=== PATIENT | male | born 1940 | race Two or more races ===

== ENCOUNTER 2017-08-19 13:54 | Emergency (ER) | payer OTHER ==
[~2017-08-19] VITALS: Ht 167.6 cm; Wt 84.8 kg
[~2017-08-19 13:54] MED LIST: AMLO5 PO; ATOR20 PO; ATOR40TA PO; Aspirin EC81 MG PO; BENA20 PO; BENHYD1012 PO; Cialis20 MG PO; GLYB5 PO; HYDCHL25 PO; INSULANI SUBQ; INSULANPEN SC; K-Dur20 MEQ PO; LEVSOD25 PO; METF500 PO; METFORMIN HCL1000 MG PO; Multivitamin1 EAC1 PO; Norco 10-325 T1 EACH PO; PIOG45 PO; QUIN5; Synthroid25 MCG PO; [UNRECOGNIZED DRUG - REMARK]
[2017-08-19] MEDS ORDERED: HYDCHL25 PO (14:58)
[2017-08-19] MEDS ORDERED: ATOR20 PO (14:58)
== END 2017-08-19 15:22 | disposition home or self-care (01) ==
LOC: ER 13:54
DX: S63.501A Unspecified sprain of right wrist, initial encounter (principal); I10 Essential (primary) hypertension; I25.10 Atherosclerotic heart disease of native coronary artery without angina pectoris; E03.9 Hypothyroidism, unspecified; Z79.899 Other long term (current) drug therapy; Z79.4 Long term (current) use of insulin; X50.0XXA Overexertion from strenuous movement or load, initial encounter
CPT/HCPCS: 73110

== ENCOUNTER 2017-08-23 14:01 | Emergency (ER) | payer OTHER ==
[~2017-08-23] VITALS: Ht 170.2 cm; Wt 83.9 kg
[2017-08-23] MEDS ORDERED: Norco 5-325 Ta1 EACH PO (15:04)
== END 2017-08-23 15:09 | disposition home or self-care (01) ==
LOC: ER 14:01
DX: S22.32XA Fracture of one rib, left side, initial encounter for closed fracture (principal); W01.198A Fall on same level from slipping, tripping and stumbling with subsequent striking against other object, initial encounter; Z79.899 Other long term (current) drug therapy; Z79.84 Long term (current) use of oral hypoglycemic drugs; Z79.4 Long term (current) use of insulin; I10 Essential (primary) hypertension; E11.9 Type 2 diabetes mellitus without complications
CPT/HCPCS: 71101; 99283

== ENCOUNTER 2018-04-04 01:36 | Day surgery (SDC) | payer OTHER ==
[~2018-04-04 01:36] MED LIST changes: +ASPI81CH PO; +Keflex500 MG PO; +Norco 5-325 Ta1 EACH PO
== END 2018-04-04 22:37 | disposition home or self-care (01) ==
LOC: WOUND 01:36
DX: E11.621 Type 2 diabetes mellitus with foot ulcer (principal); L97.512 Non-pressure chronic ulcer of other part of right foot with fat layer exposed; E11.21 Type 2 diabetes mellitus with diabetic nephropathy; I10 Essential (primary) hypertension
CPT/HCPCS: G0463

== ENCOUNTER 2018-04-18 10:15 | Day surgery (SDC) | payer OTHER | END 2018-04-18 22:35 | disposition home or self-care (01) | LOC: WOUND 10:15 | DX: E11.621 Type 2 diabetes mellitus with foot ulcer (principal); L97.512 Non-pressure chronic ulcer of other part of right foot with fat layer exposed; E11.21 Type 2 diabetes mellitus with diabetic nephropathy; I10 Essential (primary) hypertension ==

== ENCOUNTER 2018-04-26 08:21 | Day surgery (SDC) | payer OTHER | END 2018-04-26 22:35 | disposition home or self-care (01) | LOC: WOUND 08:21 | DX: E11.621 Type 2 diabetes mellitus with foot ulcer (principal); L97.512 Non-pressure chronic ulcer of other part of right foot with fat layer exposed ==

== ENCOUNTER 2018-04-28 14:00 | Day surgery (SDC) | payer OTHER | END 2018-04-28 22:46 | disposition home or self-care (01) | LOC: WOUND 14:00 | DX: E11.621 Type 2 diabetes mellitus with foot ulcer (principal); E11.21 Type 2 diabetes mellitus with diabetic nephropathy; L97.512 Non-pressure chronic ulcer of other part of right foot with fat layer exposed; I10 Essential (primary) hypertension ==

== ENCOUNTER 2018-05-04 00:14 | Day surgery (SDC) | payer OTHER | END 2018-05-04 22:36 | disposition home or self-care (01) | LOC: WOUND 00:14 | DX: E11.621 Type 2 diabetes mellitus with foot ulcer (principal); L97.512 Non-pressure chronic ulcer of other part of right foot with fat layer exposed; E11.21 Type 2 diabetes mellitus with diabetic nephropathy; S80.811D Abrasion, right lower leg, subsequent encounter; I10 Essential (primary) hypertension ==

== ENCOUNTER 2018-05-09 09:53 | Day surgery (SDC) | payer OTHER | END 2018-05-09 22:37 | disposition home or self-care (01) | LOC: WOUND 09:53 | PROC: 0HBMXZZ Excision of Right Foot Skin, External Approach (ICD-10-PCS; principal; 2018-05-09) | DX: E11.621 Type 2 diabetes mellitus with foot ulcer (principal); L97.512 Non-pressure chronic ulcer of other part of right foot with fat layer exposed; E11.21 Type 2 diabetes mellitus with diabetic nephropathy; S80.811A Abrasion, right lower leg, initial encounter ==

== ENCOUNTER 2018-05-16 09:59 | Day surgery (SDC) | payer OTHER | END 2018-05-16 22:46 | disposition home or self-care (01) | LOC: WOUND 09:59 | DX: E11.621 Type 2 diabetes mellitus with foot ulcer (principal); L97.512 Non-pressure chronic ulcer of other part of right foot with fat layer exposed; E11.21 Type 2 diabetes mellitus with diabetic nephropathy; I10 Essential (primary) hypertension; Z79.4 Long term (current) use of insulin ==

== ENCOUNTER 2018-05-23 14:27 | Day surgery (SDC) | payer OTHER | END 2018-05-23 22:41 | disposition home or self-care (01) | LOC: WOUND 14:27 | DX: E11.621 Type 2 diabetes mellitus with foot ulcer (principal); E11.21 Type 2 diabetes mellitus with diabetic nephropathy; I10 Essential (primary) hypertension; L97.512 Non-pressure chronic ulcer of other part of right foot with fat layer exposed | CPT/HCPCS: 87070; 87205; G0463 ==

== ENCOUNTER 2018-05-30 10:45 | Day surgery (SDC) | payer OTHER | END 2018-05-30 22:39 | disposition home or self-care (01) | LOC: WOUND 10:45 | DX: E11.621 Type 2 diabetes mellitus with foot ulcer (principal); L97.419 Non-pressure chronic ulcer of right heel and midfoot with unspecified severity; I10 Essential (primary) hypertension; E11.21 Type 2 diabetes mellitus with diabetic nephropathy; L97.409 Non-pressure chronic ulcer of unspecified heel and midfoot with unspecified severity; M79.671 Pain in right foot | CPT/HCPCS: 73630; 87070; 87075; 87077; 87186; 87205; G0463 ==

== ENCOUNTER 2018-06-06 00:28 | Day surgery (SDC) | payer OTHER | END 2018-06-06 22:58 | disposition home or self-care (01) | LOC: WOUND 00:28 | DX: E11.621 Type 2 diabetes mellitus with foot ulcer (principal); L97.512 Non-pressure chronic ulcer of other part of right foot with fat layer exposed; E11.21 Type 2 diabetes mellitus with diabetic nephropathy; Z79.4 Long term (current) use of insulin | CPT/HCPCS: G0463 ==

== ENCOUNTER 2018-06-16 15:00 | Day surgery (SDC) | payer OTHER | END 2018-06-17 13:11 | disposition home or self-care (01) | LOC: WOUND 15:00 | DX: E11.621 Type 2 diabetes mellitus with foot ulcer (principal); E11.21 Type 2 diabetes mellitus with diabetic nephropathy; L97.512 Non-pressure chronic ulcer of other part of right foot with fat layer exposed; I10 Essential (primary) hypertension; Z79.4 Long term (current) use of insulin; Z79.84 Long term (current) use of oral hypoglycemic drugs ==

== ENCOUNTER 2018-06-27 00:42 | Day surgery (SDC) | payer OTHER | END 2018-06-27 22:50 | disposition home or self-care (01) | LOC: WOUND 00:42 | DX: E11.621 Type 2 diabetes mellitus with foot ulcer (principal); L97.512 Non-pressure chronic ulcer of other part of right foot with fat layer exposed; E11.21 Type 2 diabetes mellitus with diabetic nephropathy; I10 Essential (primary) hypertension; Z79.84 Long term (current) use of oral hypoglycemic drugs ==

== ENCOUNTER 2018-06-30 00:24 | Day surgery (SDC) | payer OTHER | END 2018-06-30 12:00 | disposition home or self-care (01) | LOC: WOUND 00:24 | DX: E11.621 Type 2 diabetes mellitus with foot ulcer (principal); L97.515 Non-pressure chronic ulcer of other part of right foot with muscle involvement without evidence of necrosis; E11.21 Type 2 diabetes mellitus with diabetic nephropathy; E11.40 Type 2 diabetes mellitus with diabetic neuropathy, unspecified; I10 Essential (primary) hypertension ==

== ENCOUNTER 2018-07-07 00:32 | Day surgery (SDC) | payer OTHER | END 2018-07-07 12:00 | disposition home or self-care (01) | LOC: WOUND 00:32 | DX: E11.621 Type 2 diabetes mellitus with foot ulcer (principal); L97.515 Non-pressure chronic ulcer of other part of right foot with muscle involvement without evidence of necrosis; E11.21 Type 2 diabetes mellitus with diabetic nephropathy; E11.40 Type 2 diabetes mellitus with diabetic neuropathy, unspecified; I10 Essential (primary) hypertension | CPT/HCPCS: G0463 ==

== ENCOUNTER 2018-07-18 00:14 | Day surgery (SDC) | payer OTHER | END 2018-07-18 23:04 | disposition home or self-care (01) | LOC: WOUND 00:14 | DX: E11.621 Type 2 diabetes mellitus with foot ulcer (principal); L97.515 Non-pressure chronic ulcer of other part of right foot with muscle involvement without evidence of necrosis; E11.21 Type 2 diabetes mellitus with diabetic nephropathy; E11.40 Type 2 diabetes mellitus with diabetic neuropathy, unspecified; I10 Essential (primary) hypertension ==

== ENCOUNTER 2018-07-21 01:07 | Day surgery (SDC) | payer OTHER | END 2018-07-21 22:46 | disposition home or self-care (01) | LOC: WOUND 01:07 | DX: E11.621 Type 2 diabetes mellitus with foot ulcer (principal); L97.515 Non-pressure chronic ulcer of other part of right foot with muscle involvement without evidence of necrosis; E11.21 Type 2 diabetes mellitus with diabetic nephropathy; E11.40 Type 2 diabetes mellitus with diabetic neuropathy, unspecified; I10 Essential (primary) hypertension ==

== ENCOUNTER 2018-07-26 00:28 | Day surgery (SDC) | payer OTHER | END 2018-07-26 22:47 | disposition home or self-care (01) | LOC: WOUND 00:28 | DX: E11.621 Type 2 diabetes mellitus with foot ulcer (principal); L97.515 Non-pressure chronic ulcer of other part of right foot with muscle involvement without evidence of necrosis; E11.21 Type 2 diabetes mellitus with diabetic nephropathy; I10 Essential (primary) hypertension; E11.40 Type 2 diabetes mellitus with diabetic neuropathy, unspecified; E07.9 Disorder of thyroid, unspecified | CPT/HCPCS: G0463 ==

== ENCOUNTER 2018-08-02 14:35 | Day surgery (SDC) | payer OTHER | END 2018-08-02 22:48 | disposition home or self-care (01) | LOC: WOUND 14:35 | DX: E11.621 Type 2 diabetes mellitus with foot ulcer (principal); L97.512 Non-pressure chronic ulcer of other part of right foot with fat layer exposed; E11.21 Type 2 diabetes mellitus with diabetic nephropathy; I10 Essential (primary) hypertension; E11.40 Type 2 diabetes mellitus with diabetic neuropathy, unspecified | CPT/HCPCS: G0463 ==

== ENCOUNTER 2018-08-09 12:10 | Day surgery (SDC) | payer OTHER | END 2018-08-09 22:38 | disposition home or self-care (01) | LOC: WOUND 12:10 | DX: E11.621 Type 2 diabetes mellitus with foot ulcer (principal); L97.515 Non-pressure chronic ulcer of other part of right foot with muscle involvement without evidence of necrosis; E11.21 Type 2 diabetes mellitus with diabetic nephropathy; E11.40 Type 2 diabetes mellitus with diabetic neuropathy, unspecified; I10 Essential (primary) hypertension | CPT/HCPCS: G0463 ==

== ENCOUNTER 2018-08-23 15:10 | Day surgery (SDC) | payer OTHER | END 2018-08-23 22:58 | disposition home or self-care (01) | LOC: WOUND 15:10 | DX: E11.621 Type 2 diabetes mellitus with foot ulcer (principal); L97.513 Non-pressure chronic ulcer of other part of right foot with necrosis of muscle; I10 Essential (primary) hypertension; E11.21 Type 2 diabetes mellitus with diabetic nephropathy; E11.40 Type 2 diabetes mellitus with diabetic neuropathy, unspecified; M86.9 Osteomyelitis, unspecified | CPT/HCPCS: 73630; 87070; 87075; 87077; 87186; 87205; 99283-25; G0463 ==

== ENCOUNTER 2018-08-25 10:53 | Day surgery (SDC) | payer OTHER ==
[2018-08-26] MEDS ORDERED: LEVO750 PO (21:54)
== END 2018-08-25 22:43 | disposition home or self-care (01) ==
LOC: WOUND 10:53
DX: E11.621 Type 2 diabetes mellitus with foot ulcer (principal); L97.512 Non-pressure chronic ulcer of other part of right foot with fat layer exposed; I10 Essential (primary) hypertension; E11.21 Type 2 diabetes mellitus with diabetic nephropathy; E11.40 Type 2 diabetes mellitus with diabetic neuropathy, unspecified

== ENCOUNTER 2018-08-26 14:15 | Day surgery (SDC) | payer OTHER ==
[2018-08-26] MEDS ORDERED: LEVO750 PO (21:54)
== END 2018-08-27 22:55 | disposition home or self-care (01) ==
LOC: WOUND 14:15
DX: E11.621 Type 2 diabetes mellitus with foot ulcer (principal); L97.513 Non-pressure chronic ulcer of other part of right foot with necrosis of muscle; E11.21 Type 2 diabetes mellitus with diabetic nephropathy; I10 Essential (primary) hypertension; B95.61 Methicillin susceptible Staphylococcus aureus infection as the cause of diseases classified elsewhere; B96.89 Other specified bacterial agents as the cause of diseases classified elsewhere; L02.611 Cutaneous abscess of right foot; E11.69 Type 2 diabetes mellitus with other specified complication; M86.171 Other acute osteomyelitis, right ankle and foot
CPT/HCPCS: J0690; J3010; J7120

== ENCOUNTER 2018-08-26 17:22 | Inpatient (IN) | payer OTHER ==
[~2018-08-26] VITALS: Ht 170.2 cm; Wt 76.7 kg
[2018-08-26 18:01] LABS: BASOPHILS ABSOLUTE AUTO 0.03 K/mm3 (0.00-0.23); BASOPHILS PERCENT AUTO 0 % (0-2); EOSINOPHILS ABSOLUTE AUTO 0.12 K/mm3 (0.00-0.68); EOSINOPHILS PERCENT AUTO 1 % (0-6); Hematocrit 41.4 % (37.0-53.0); Hemoglobin 13.4 g/dL (13.5-17.5); IMMATURE GRAN ABSOLUTE AUTO 0.04 K/mm3 (0.00-0.10); IMMATURE GRAN PERCENT AUTO 0 % (0-1); LYMPHOCYTES ABSOLUTE AUTO 1.87 K/mm3 (0.84-5.20); LYMPHOCYTES PERCENT AUTO 19 % (21-46); MONOCYTES ABSOLUTE AUTO 0.65 K/mm3 (0.16-1.47); MONOCYTES PERCENT AUTO 7 % (4-13); Mean Corpuscular HGB 30.2 pg (26.0-34.0); Mean Corpuscular HGB Conc 32.4 g/dL (31.5-36.5); Mean Corpuscular Volume 93 fL (80-100); Mean Platelet Volume 8.8 fL (9.1-12.4); NEUTROPHILS ABSOLUTE AUTO 6.99 K/mm3 (1.96-9.15); NEUTROPHILS PERCENT AUTO 72 % (41-73); Platelet Count 316 K/mm3 (150-400); RDW Coefficient Variation 11.8 % (11.7-14.2); RDW Standard Deviation 40.5 fL (35.1-46.3); Red Blood Cell Count 4.44 M/mm3 (4.30-5.90)
[2018-08-26 18:27] LABS: Alanine Aminotransfer (ALT/SGP 19 U/L (12-78); Albumin, Blood 3.4 g/dL (3.4-5.0); Albumin/Globulin Ratio 0.7 (0.8-1.8); Alk Phos 56 U/L (50-136); Anion Gap 5 mmol/L (6-16); Aspartate Aminotrans (AST/SGOT 13 U/L (12-37); Bilirubin, Total 0.4 mg/dL (0.1-1.0); Blood Urea Nitrogen 17 mg/dL (8-24); Bun/Creatinine Ratio 19.9 (12.0-20.0); CO2, Blood 29 mmol/L (21-32); Calcium, Blood 9.5 mg/dL (8.5-10.1); Chloride, Blood 102 mmol/L (98-108); Creatinine, Blood 0.86 mg/dL (0.60-1.20); Glomerular Filtration Rate >60 (60-); Glucose, Blood 100 mg/dL (70-99); Potassium, Blood 3.8 mmol/L (3.5-5.5); Sodium, Blood 136 mmol/L (136-145); Total Protein, Blood 8.4 g/dL (6.4-8.2)
[2018-08-26] MEDS ORDERED: LEVO750 PO (21:54)
[2018-08-27 04:03] LABS: Source, Urine Voided
[2018-08-27 04:05] LABS: Bilirubin, Urine Neg (Neg); Blood, Urine Neg (Neg); Glucose Qualitative, Urine Neg (Neg); Ketones, Urine Neg (Neg); Leukocyte Esterase, Urine Neg (Neg); Nitrite, Urine Neg (Neg); Protein, Urine Neg (Neg); Specific Gravity, Urine 1.015 (1.003-1.022); Urobilinogen, Urine NORM (Normal)
[2018-08-27 04:38] LABS: Appearance, Urine Clear (Clear); Color, Urine Yellow (P-Yellow)
--- NOTE | 2018-08-27 04:56 | NUR ---
*SHIFT SUMMARY* PATIENT IS ALERT AND ORIENTED. ARRIVED TO ROOM FROM ER VIA STRETCHER. PT STOOD AND PIVOTED WITH ONE FOOT TO BED. PT USES CALL LIGHT FOR ASSISTANCE TO USE URINAL. PATIENT DENIES HAVING ANY PAIN. PATIENT SLEPT WELL THROUGHOUT THE NIGHT. VITAL SIGNS STABLE.
[2018-08-27 05:37] LABS: BASOPHILS ABSOLUTE AUTO 0.04 K/mm3 (0.00-0.23); BASOPHILS PERCENT AUTO 1 % (0-2); EOSINOPHILS ABSOLUTE AUTO 0.14 K/mm3 (0.00-0.68); EOSINOPHILS PERCENT AUTO 2 % (0-6); Hematocrit 37.6 % (37.0-53.0); Hemoglobin 12.3 g/dL (13.5-17.5); IMMATURE GRAN ABSOLUTE AUTO 0.03 K/mm3 (0.00-0.10); IMMATURE GRAN PERCENT AUTO 0 % (0-1); LYMPHOCYTES ABSOLUTE AUTO 1.45 K/mm3 (0.84-5.20); LYMPHOCYTES PERCENT AUTO 19 % (21-46); MONOCYTES ABSOLUTE AUTO 0.63 K/mm3 (0.16-1.47); MONOCYTES PERCENT AUTO 8 % (4-13); Mean Corpuscular HGB 30.8 pg (26.0-34.0); Mean Corpuscular HGB Conc 32.7 g/dL (31.5-36.5); Mean Corpuscular Volume 94 fL (80-100); Mean Platelet Volume 8.9 fL (9.1-12.4); NEUTROPHILS ABSOLUTE AUTO 5.56 K/mm3 (1.96-9.15); NEUTROPHILS PERCENT AUTO 71 % (41-73); Platelet Count 270 K/mm3 (150-400); RDW Coefficient Variation 11.9 % (11.7-14.2); Red Blood Cell Count 3.99 M/mm3 (4.30-5.90); White Blood Cell Count 7.85 K/mm3 (4.00-11.30)
[2018-08-27 05:53] LABS: International Normalized Ratio 1.03; Prothrombin Time Results 10.9 Sec (9.7-11.5)
[2018-08-27 06:30] LABS: Anion Gap 7 mmol/L (6-16); Blood Urea Nitrogen 20 mg/dL (8-24); Bun/Creatinine Ratio 22.9 (12.0-20.0); CO2, Blood 27 mmol/L (21-32); Calcium, Blood 9.3 mg/dL (8.5-10.1); Chloride, Blood 106 mmol/L (98-108); Creatinine, Blood 0.87 mg/dL (0.60-1.20); Glomerular Filtration Rate >60 (60-); Glucose, Blood 120 mg/dL (70-99); Potassium, Blood 3.7 mmol/L (3.5-5.5); Sodium, Blood 140 mmol/L (136-145)
--- NOTE | 2018-08-27 15:38 | NUR ---
PT GOING TO SURGERY NOW
--- NOTE | 2018-08-27 17:23 | NUR ---
SHIFT SUMMARY PT IS AWAITING SURGERY THIS MORNING. PT HAS BEEN NPO. PT SHOWERED WITH LITTLE ASSISTANCE. HE HAS HAD VISITORS MOST OF THE DAY. HE IS CALM AND COOPERATIVE THROUGHOUT THE DAY. PT LEFT FOR SURGERY AROUND 1600 AND CAME BACK UP AROUND 1540. PT RIGHT PINKY TOE WAS AMPUTATED IN SURGERY.
--- NOTE | 2018-08-27 17:57 | NUR ---
PT ARRIVED BACK FROM SURGERY, ABLE TO STAND AND TRANSFER FROM THE GURNEY TO THE BED, PT REPORTS HIS PAIN IS AT A 2 OUT OF 10, R FOOT IS WRAPPED UP IN AN CHELO WRAP, GOOD CAP REFILL
--- NOTE | 2018-08-28 04:32 | NUR ---
SHIFT SUMMARY PT IS ALERT AND ORIENTED. USES CALL LIGHT WHEN NEEDS TO GO TO THE BATHROOM. PATIENT DID COMPLAIN OF PAIN THROUGHOUT THE NIGHT. MEDICATED PT WITH OT DOSE OF ROXICODONE AND TYLENOL. PT STILL HAVING PAIN ABOUT TWO HOURS AFTER TYLENOL WAS GIVEN. PT MIGHT NEED SOMETHING STRONGER FOR PAIN TODAY. PT ON ROOM AIR NO C/O SOB OR CP. VITAL SIGNS STABLE.
--- NOTE | 2018-08-28 17:52 | NUR ---
PT IS A+O, USES CALL LIGHT WHEN HE NEEDS TO USE THE BR. PT WAS MEDICATED 3 TIMES THIS SHIFT FOR PAIN ONCE WITH TYLENOL AND TWICE WITH ROXICODONE. PT WORKED WITH PT THIS SHIFT. HE HAD SEVERAL VISITERS THIS SHIFT. HE HAS BEEN POLITE AND COOPERATIVE THROUGHOUT THE DAY.
--- NOTE | 2018-08-29 06:42 | NUR ---
SHIFT SUMMARY PATIENT IS ALERT AND ORIENTED. PT DID NOT SLEE WELL THROUGHOUT THE NIGHT, SAID HE HAD PAIN OFF AND ON. PT MEDICATED ORDERED. PT AND FAMILY HAVE QUESTIONS FOR OCCUPATIONAL THERAPY TODAY. VITALS STABLE. NO NEW CHANGES.
[2018-08-29] MEDS ORDERED: Florastor250 MG PO (11:48)
[2018-08-29] MEDS ORDERED: OXYC5 PO (11:48)
[2018-08-29] MEDS ORDERED: Augmentin 875-1 EACH PO (11:48)
--- NOTE | 2018-08-29 16:59 | NUR ---
PATIENT DISCHARGE: PATIENT DISCHARGED TO HOME THIS SHIFT. MEDICATION RECONCILIATION COMPLETED; MED LIST CALLED TO [facility] [address]; HARD SCRIPT PROVIDED TO PATIENT FOR CONTROLLED SUBSTANCE. DISCHARGE EDUCATION COMPLETED WITH PATIENT. PATIENT TRANSPORTED TO EXIT BY [facility] STAFF WITH WHEELCHAIR AT 1655. PATIENT DEPARTED [facility] VIA PRIVATE AUTO.
== END 2018-08-29 16:57 | disposition home or self-care (01) | DRG 475 ==
LOC: ER 17:22 → MEDS 22:29 → ER 08-27 00:04 → MEDS 08-27 00:04 → ENPENDDIS 08-29 10:42 → MEDS 08-29 16:57
PROVIDERS: Nurse Practitioner Acute Care; Physician Assistant; Podiatrist Foot & Ankle Surgery; ADMIT Internal Medicine
PROC: 0Y6M0ZF Detachment at Right Foot, Partial 5th Ray, Open Approach (ICD-10-PCS; principal; 2018-08-27 17:00)
DX: M86.171 Other acute osteomyelitis, right ankle and foot (principal); L02.611 Cutaneous abscess of right foot; L97.516 Non-pressure chronic ulcer of other part of right foot with bone involvement without evidence of necrosis; Z79.4 Long term (current) use of insulin; Z79.82 Long term (current) use of aspirin; E11.42 Type 2 diabetes mellitus with diabetic polyneuropathy; E03.9 Hypothyroidism, unspecified; Z91.19 Patient's noncompliance with other medical treatment and regimen; I25.10 Atherosclerotic heart disease of native coronary artery without angina pectoris; Z95.1 Presence of aortocoronary bypass graft; Z90.49 Acquired absence of other specified parts of digestive tract; Z85.038 Personal history of other malignant neoplasm of large intestine; E65 Localized adiposity; E11.621 Type 2 diabetes mellitus with foot ulcer
CPT/HCPCS: 36415; 80048; 80053; 81003; 82947; 85025; 85610; 85651; 86140; 87040; 87071; 87075; 87205; 97116; 97161; 97165; 97530; 97535; 99284; J0690; J2250; J2704; J3010; J7120

== ENCOUNTER 2018-09-01 00:33 | Day surgery (SDC) | payer OTHER ==
[~2018-09-01 00:33] MED LIST changes: +Augmentin 875-1 EACH PO; +Florastor250 MG PO; +LEVO750 PO; +OXYC5 PO
== END 2018-09-01 22:42 | disposition home or self-care (01) ==
LOC: WOUND 00:33
DX: E11.69 Type 2 diabetes mellitus with other specified complication (principal); M86.171 Other acute osteomyelitis, right ankle and foot; E11.621 Type 2 diabetes mellitus with foot ulcer; E11.21 Type 2 diabetes mellitus with diabetic nephropathy; E11.40 Type 2 diabetes mellitus with diabetic neuropathy, unspecified; I10 Essential (primary) hypertension; Z89.429 Acquired absence of other toe(s), unspecified side; Z87.39 Personal history of other diseases of the musculoskeletal system and connective tissue
CPT/HCPCS: G0463

== ENCOUNTER 2018-09-03 17:13 | Emergency (ER) | payer OTHER ==
[~2018-09-03] VITALS: Ht 170.2 cm; Wt 77.1 kg
== END 2018-09-03 20:22 | disposition home or self-care (01) ==
LOC: ER 17:13
DX: G89.18 Other acute postprocedural pain (principal); M79.89 Other specified soft tissue disorders; Z79.899 Other long term (current) drug therapy; Z79.4 Long term (current) use of insulin; E11.9 Type 2 diabetes mellitus without complications; E03.9 Hypothyroidism, unspecified; I10 Essential (primary) hypertension
CPT/HCPCS: 93971; 99283-25

== ENCOUNTER 2018-09-21 14:35 | Day surgery (SDC) | payer OTHER ==
[2018-11-10] MEDS ORDERED: AMOCLA875 PO (09:36)
[2018-11-10] MEDS ORDERED: Colace100 MG PO (09:36)
[2018-11-10] MEDS ORDERED: Aspirin EC81 MG PO (09:37)
[2018-11-11] MEDS ORDERED: CLOP75 PO (10:31)
[2018-12-23] MEDS ORDERED: Aspir 8181 MG PO (12:37)
[2018-12-23] MEDS ORDERED: Benazepril HCl20 MG PO (12:38)
[2018-12-23] MEDS ORDERED: AMLO10 PO (12:38)
[2018-12-23] MEDS ORDERED: HYDCHL25 PO (12:38)
[2018-12-23] MEDS ORDERED: ATOR40TA PO (12:38)
[2018-12-23] MEDS ORDERED: Florastor250 MG PO (12:39)
[2018-12-23] MEDS ORDERED: INSULANPEN SC (12:39)
[2018-12-23] MEDS ORDERED: Glucophage1000 MG PO (12:39)
[2018-12-23] MEDS ORDERED: LEVSOD50 PO (12:39)
[2018-12-23] MEDS ORDERED: DOCU100 PO (12:40)
== END 2018-09-21 22:47 | disposition home or self-care (01) ==
LOC: WOUND 14:35
DX: E11.621 Type 2 diabetes mellitus with foot ulcer (principal); L97.513 Non-pressure chronic ulcer of other part of right foot with necrosis of muscle; E11.21 Type 2 diabetes mellitus with diabetic nephropathy; Z89.421 Acquired absence of other right toe(s)
CPT/HCPCS: G0463

== ENCOUNTER 2018-09-28 15:11 | Day surgery (SDC) | payer OTHER ==
[2018-11-10] MEDS ORDERED: AMOCLA875 PO (09:36)
[2018-11-10] MEDS ORDERED: Colace100 MG PO (09:36)
[2018-11-10] MEDS ORDERED: Aspirin EC81 MG PO (09:37)
[2018-11-11] MEDS ORDERED: CLOP75 PO (10:31)
[2018-12-23] MEDS ORDERED: Aspir 8181 MG PO (12:37)
[2018-12-23] MEDS ORDERED: ATOR40TA PO (12:38)
[2018-12-23] MEDS ORDERED: AMLO10 PO (12:38)
[2018-12-23] MEDS ORDERED: HYDCHL25 PO (12:38)
[2018-12-23] MEDS ORDERED: Benazepril HCl20 MG PO (12:38)
[2018-12-23] MEDS ORDERED: LEVSOD50 PO (12:39)
[2018-12-23] MEDS ORDERED: Glucophage1000 MG PO (12:39)
[2018-12-23] MEDS ORDERED: INSULANPEN SC (12:39)
[2018-12-23] MEDS ORDERED: Florastor250 MG PO (12:39)
[2018-12-23] MEDS ORDERED: DOCU100 PO (12:40)
== END 2018-09-28 23:00 | disposition home or self-care (01) ==
LOC: WOUND 15:11
DX: T81.31XA Disruption of external operation (surgical) wound, not elsewhere classified, initial encounter (principal); E11.621 Type 2 diabetes mellitus with foot ulcer; L97.512 Non-pressure chronic ulcer of other part of right foot with fat layer exposed; E11.21 Type 2 diabetes mellitus with diabetic nephropathy

== ENCOUNTER 2018-10-04 15:00 | Day surgery (SDC) | payer OTHER ==
[2018-11-10] MEDS ORDERED: AMOCLA875 PO (09:36)
[2018-11-10] MEDS ORDERED: Colace100 MG PO (09:36)
[2018-11-10] MEDS ORDERED: Aspirin EC81 MG PO (09:37)
[2018-11-11] MEDS ORDERED: CLOP75 PO (10:31)
[2018-12-23] MEDS ORDERED: Aspir 8181 MG PO (12:37)
[2018-12-23] MEDS ORDERED: AMLO10 PO (12:38)
[2018-12-23] MEDS ORDERED: Benazepril HCl20 MG PO (12:38)
[2018-12-23] MEDS ORDERED: ATOR40TA PO (12:38)
[2018-12-23] MEDS ORDERED: HYDCHL25 PO (12:38)
[2018-12-23] MEDS ORDERED: Glucophage1000 MG PO (12:39)
[2018-12-23] MEDS ORDERED: INSULANPEN SC (12:39)
[2018-12-23] MEDS ORDERED: LEVSOD50 PO (12:39)
[2018-12-23] MEDS ORDERED: Florastor250 MG PO (12:39)
[2018-12-23] MEDS ORDERED: DOCU100 PO (12:40)
== END 2018-10-04 22:45 | disposition home or self-care (01) ==
LOC: WOUND 15:00
DX: T81.32XA Disruption of internal operation (surgical) wound, not elsewhere classified, initial encounter (principal); E11.621 Type 2 diabetes mellitus with foot ulcer; L97.511 Non-pressure chronic ulcer of other part of right foot limited to breakdown of skin; E11.21 Type 2 diabetes mellitus with diabetic nephropathy; Z89.421 Acquired absence of other right toe(s)
CPT/HCPCS: 87071; 87075; 87205

== ENCOUNTER 2018-10-11 14:53 | Day surgery (SDC) | payer OTHER ==
[2018-11-10] MEDS ORDERED: Colace100 MG PO (09:36)
[2018-11-10] MEDS ORDERED: AMOCLA875 PO (09:36)
[2018-11-10] MEDS ORDERED: Aspirin EC81 MG PO (09:37)
[2018-11-11] MEDS ORDERED: CLOP75 PO (10:31)
[2018-12-23] MEDS ORDERED: Aspir 8181 MG PO (12:37)
[2018-12-23] MEDS ORDERED: ATOR40TA PO (12:38)
[2018-12-23] MEDS ORDERED: Benazepril HCl20 MG PO (12:38)
[2018-12-23] MEDS ORDERED: AMLO10 PO (12:38)
[2018-12-23] MEDS ORDERED: HYDCHL25 PO (12:38)
[2018-12-23] MEDS ORDERED: Glucophage1000 MG PO (12:39)
[2018-12-23] MEDS ORDERED: Florastor250 MG PO (12:39)
[2018-12-23] MEDS ORDERED: LEVSOD50 PO (12:39)
[2018-12-23] MEDS ORDERED: INSULANPEN SC (12:39)
[2018-12-23] MEDS ORDERED: DOCU100 PO (12:40)
== END 2018-10-11 22:59 | disposition home or self-care (01) ==
LOC: WOUND 14:53
DX: T87.89 Other complications of amputation stump (principal); E11.621 Type 2 diabetes mellitus with foot ulcer; L97.512 Non-pressure chronic ulcer of other part of right foot with fat layer exposed; E11.21 Type 2 diabetes mellitus with diabetic nephropathy; E11.40 Type 2 diabetes mellitus with diabetic neuropathy, unspecified; I10 Essential (primary) hypertension

== ENCOUNTER 2018-10-18 15:05 | Day surgery (SDC) | payer OTHER ==
[2018-12-23] MEDS ORDERED: Aspir 8181 MG PO (12:37)
[2018-12-23] MEDS ORDERED: Benazepril HCl20 MG PO (12:38)
[2018-12-23] MEDS ORDERED: ATOR40TA PO (12:38)
[2018-12-23] MEDS ORDERED: AMLO10 PO (12:38)
[2018-12-23] MEDS ORDERED: HYDCHL25 PO (12:38)
[2018-12-23] MEDS ORDERED: LEVSOD50 PO (12:39)
[2018-12-23] MEDS ORDERED: Glucophage1000 MG PO (12:39)
[2018-12-23] MEDS ORDERED: INSULANPEN SC (12:39)
[2018-12-23] MEDS ORDERED: Florastor250 MG PO (12:39)
[2018-12-23] MEDS ORDERED: DOCU100 PO (12:40)
== END 2018-10-18 23:25 | disposition home or self-care (01) ==
LOC: WOUND 15:05
DX: E11.621 Type 2 diabetes mellitus with foot ulcer (principal); L97.512 Non-pressure chronic ulcer of other part of right foot with fat layer exposed; T81.31XS Disruption of external operation (surgical) wound, not elsewhere classified, sequela; E11.21 Type 2 diabetes mellitus with diabetic nephropathy; I10 Essential (primary) hypertension; E11.40 Type 2 diabetes mellitus with diabetic neuropathy, unspecified

== ENCOUNTER 2018-10-25 13:54 | Day surgery (SDC) | payer OTHER ==
[2018-11-10] MEDS ORDERED: AMOCLA875 PO (09:36)
[2018-11-10] MEDS ORDERED: Colace100 MG PO (09:36)
[2018-11-10] MEDS ORDERED: Aspirin EC81 MG PO (09:37)
[2018-11-11] MEDS ORDERED: CLOP75 PO (10:31)
[2018-12-23] MEDS ORDERED: Aspir 8181 MG PO (12:37)
[2018-12-23] MEDS ORDERED: Benazepril HCl20 MG PO (12:38)
[2018-12-23] MEDS ORDERED: HYDCHL25 PO (12:38)
[2018-12-23] MEDS ORDERED: ATOR40TA PO (12:38)
[2018-12-23] MEDS ORDERED: AMLO10 PO (12:38)
[2018-12-23] MEDS ORDERED: Glucophage1000 MG PO (12:39)
[2018-12-23] MEDS ORDERED: LEVSOD50 PO (12:39)
[2018-12-23] MEDS ORDERED: INSULANPEN SC (12:39)
[2018-12-23] MEDS ORDERED: Florastor250 MG PO (12:39)
[2018-12-23] MEDS ORDERED: DOCU100 PO (12:40)
== END 2018-10-25 22:44 | disposition home or self-care (01) ==
LOC: WOUND 13:54
DX: T87.81 Dehiscence of amputation stump (principal); E11.621 Type 2 diabetes mellitus with foot ulcer; L97.513 Non-pressure chronic ulcer of other part of right foot with necrosis of muscle; E11.21 Type 2 diabetes mellitus with diabetic nephropathy; E03.9 Hypothyroidism, unspecified; G47.33 Obstructive sleep apnea (adult) (pediatric); E11.51 Type 2 diabetes mellitus with diabetic peripheral angiopathy without gangrene; I10 Essential (primary) hypertension; Z89.421 Acquired absence of other right toe(s); Z95.1 Presence of aortocoronary bypass graft; B95.8 Unspecified staphylococcus as the cause of diseases classified elsewhere
CPT/HCPCS: G0463

== ENCOUNTER 2018-11-01 15:00 | Day surgery (SDC) | payer OTHER ==
[2018-11-10] MEDS ORDERED: Colace100 MG PO (09:36)
[2018-11-10] MEDS ORDERED: AMOCLA875 PO (09:36)
[2018-11-10] MEDS ORDERED: Aspirin EC81 MG PO (09:37)
[2018-11-11] MEDS ORDERED: CLOP75 PO (10:31)
[2018-12-23] MEDS ORDERED: Aspir 8181 MG PO (12:37)
[2018-12-23] MEDS ORDERED: AMLO10 PO (12:38)
[2018-12-23] MEDS ORDERED: HYDCHL25 PO (12:38)
[2018-12-23] MEDS ORDERED: Benazepril HCl20 MG PO (12:38)
[2018-12-23] MEDS ORDERED: ATOR40TA PO (12:38)
[2018-12-23] MEDS ORDERED: LEVSOD50 PO (12:39)
[2018-12-23] MEDS ORDERED: INSULANPEN SC (12:39)
[2018-12-23] MEDS ORDERED: Glucophage1000 MG PO (12:39)
[2018-12-23] MEDS ORDERED: Florastor250 MG PO (12:39)
[2018-12-23] MEDS ORDERED: DOCU100 PO (12:40)
== END 2018-11-01 23:06 | disposition home or self-care (01) ==
LOC: WOUND 15:00
DX: E11.621 Type 2 diabetes mellitus with foot ulcer (principal); L97.512 Non-pressure chronic ulcer of other part of right foot with fat layer exposed; T81.31XS Disruption of external operation (surgical) wound, not elsewhere classified, sequela; E11.21 Type 2 diabetes mellitus with diabetic nephropathy

== ENCOUNTER 2018-11-08 00:21 | Day surgery (SDC) | payer OTHER ==
[2018-11-10] MEDS ORDERED: AMOCLA875 PO (09:36)
[2018-11-10] MEDS ORDERED: Colace100 MG PO (09:36)
[2018-11-10] MEDS ORDERED: Aspirin EC81 MG PO (09:37)
[2018-11-11] MEDS ORDERED: CLOP75 PO (10:31)
[2018-12-23] MEDS ORDERED: Aspir 8181 MG PO (12:37)
[2018-12-23] MEDS ORDERED: ATOR40TA PO (12:38)
[2018-12-23] MEDS ORDERED: HYDCHL25 PO (12:38)
[2018-12-23] MEDS ORDERED: AMLO10 PO (12:38)
[2018-12-23] MEDS ORDERED: Benazepril HCl20 MG PO (12:38)
[2018-12-23] MEDS ORDERED: INSULANPEN SC (12:39)
[2018-12-23] MEDS ORDERED: Glucophage1000 MG PO (12:39)
[2018-12-23] MEDS ORDERED: LEVSOD50 PO (12:39)
[2018-12-23] MEDS ORDERED: Florastor250 MG PO (12:39)
[2018-12-23] MEDS ORDERED: DOCU100 PO (12:40)
== END 2018-11-08 22:44 | disposition home or self-care (01) ==
LOC: WOUND
DX: E11.621 Type 2 diabetes mellitus with foot ulcer (principal); L97.513 Non-pressure chronic ulcer of other part of right foot with necrosis of muscle; T81.31XS Disruption of external operation (surgical) wound, not elsewhere classified, sequela; E11.21 Type 2 diabetes mellitus with diabetic nephropathy; E03.9 Hypothyroidism, unspecified; G47.33 Obstructive sleep apnea (adult) (pediatric); E11.51 Type 2 diabetes mellitus with diabetic peripheral angiopathy without gangrene; I10 Essential (primary) hypertension; Z95.1 Presence of aortocoronary bypass graft; Z86.19 Personal history of other infectious and parasitic diseases
CPT/HCPCS: G0463

== ENCOUNTER 2018-11-10 08:54 | Day surgery (SDC) | payer OTHER ==
[~2018-11-10] VITALS: Ht 170.2 cm; Wt 78.0 kg
[2018-11-10] MEDS ORDERED: Colace100 MG PO ×2 (09:36)
[2018-11-10] MEDS ORDERED: AMOCLA875 PO ×2 (09:36)
[2018-11-10] MEDS ORDERED: Aspirin EC81 MG PO ×2 (09:37)
--- NOTE | 2018-11-10 15:15 | NUR ---
PATIENT ARRIVED FROM [facility] ON HOSPITAL BED TO ROOM ICU 5, BEDSIDE REPORT RECEIVED, PATIENT IS AWAKE, ALERT AND ORIENTED BUT SLIGHTLY FORGETFUL, INSTRUCTED TO NOT LIFT HEAD OR BEND BOTH LEGS, WILL HAVE TO LIE FLAT FOR 4 HOURS, PATIENT HAS FOUR ACCESS SITES, RIGHT AND LEFT GROIN, BOTH WITH MYNX CLOSURE DEVICE, SMALL KNOT PALPABLE ON RIGHT GROIN ACCESS SITE, CIRCLED, TWO ACCESS SITE ON RIGHT FOOT, TOP OF FOOT WITH KAMI CLOSURE DEVICE AND RIGHT PT WITH OPSITE ONLY, ALL FOUR ACCESS SITES ARE SOFT, NONTENDER, NO S/S OF HEMATOMA, NO BLEEDING NOTED, LUNG SOUNDS ARE CLEAR BUT DIMINISHED IN BASES, HR IN 40'S TO 50'S SINUS CIARA WITH PAC'S, BLOOD PRESSURES IN 130'S, BOWEL TONES PRESENT AND HYPOACTIVE, PATIENT ASKED FOR URINAL AND VOIDED 100 CC'S, A PREVIOUS RIGHT FOOT ULCER NOTED ON LATERAL RIGHT FOOT, COVERED WITH MEPILEX, PATIENT DENIES PAIN, AND IS AFEBRILE, ANSWERED ALL QUESTIONS ABOUT MEDICAL HISTORY APPROPRIATELY, FAMILY AT BEDSIDE, CALL LIGHT IN REACH, WILL CONTINUE TO MONITOR.
--- NOTE | 2018-11-10 17:06 | NUR ---
FAMILY AT BEDSIDE, ASSISTING PATIENT WITH DINNER, PATIENT PLACED IN REVERSE [place]ENDE[place]BURG, BOTH GROIN ACCESS SITES ARE SOFT, NONTENDER, NO HEMATOMA, NO BLEEDING, RIGHT FOOT ACCESS SITES SOFT, NONTENDER, NO BLEEDING, NO HEMATOMA, CALL LIGHT IN REACH, WILL CONTINUE TO MONITOR.
--- NOTE | 2018-11-10 17:55 | NUR ---
SHIFT SUMMARY NOTE: PATIENT IS RESTING COMFORTABLY, VSS, DENIES PAIN, AFEBRILE, ATE DINNER WITH ASSISTANCE FROM FAMILY MEMBER, REMAINS LYING FLAT IN REVERSE [place], BILATERAL GROIN ACCESS SITES ARE SOFT AND NONTENDER, NO BLEEDING OR HEMATOMA NOTED, ALSO BOTH ACCESS SITES ON RIGHT FOOT ARE SOFT, AND NONTENDER, NO BLEEDING, NO HEMATOMA NOTED, PATIENT HAS A HISTORY OF RIGHT LATERAL FOOT ULCER, NO VISIBLE D/T BEING OCCLUDED BY MEPILEX, PATIENT WILL POSSIBLY BE DISCHARGED HOME IN AM, FOR DETAILS SEE ADMISSION AND SHIFT ASSESSMENTS, AND NURSES NOTES, CALL LIGHT IN REACH, WILL CONTINUE TO MONITOR AND GIVE REPORT TO ONCOMING VALIDATION SCIENTIST.
--- NOTE | 2018-11-10 20:00 | NUR ---
Daniels of Care; Patient alert and oriented x4. VSS, O2-98-100% on RA. Denies dyspnea, SOB, pain, or discomfort. Lying flat at shift change r/t bilateral groin access sites. HOB now elevated to 30 degrees's. Groin access sites remain wnl, no s/s of bleeding or hematoma noted. Patient also has x2 arterial access sites to rt foot, both wnl, no s/s of bleeding or hematoma. Pulses positive to rt foot via doppler. Rt foot slightly cool to touch but capillary refill wnl. Numbness noted to rt toes, patient states to be normal. Tolerating PO fluids and food without difficulty. Using urinal in bed to void without difficulty. Will continue to monitor for pain, safety, comfort.
--- NOTE | 2018-11-11 06:44 | NUR ---
Shift Summary: Patient slept well throughout shift. Continues to deny pain, discomfort, SOB, or dyspnea. VSS, O2-96-98% on RA. Bilateral groin sites, and x2 rt foot arterial access sites remain wnl, no s/s of active bleeding or hematoma noted. Pulses remain positive per Doppler to rt foot, remains slightly cool, but pink and capillary refill wnl. Transferred x1 via stand-pivot to bedside commode without difficulty. Call light in reach, makes needs known. Will continue to monitor until report to day shift RN.
--- NOTE | 2018-11-11 07:49 | NUR ---
ASSUMED CARE: REPORT RECEIVED FROM RON Delong RN. ASSUMED CARE OF THIS PT AT APPROX 0700. ON ASSESSMENT, THE PT IS A&O. HE DENIES PAIN THIS AM, BUT STS HE IS EXPERIENCING OCCASIONAL "MUSCLE SPASMS" TO HIS R LEG S/P PERIPHERAL REVASC PROCEDURE, BUT DOES NOT WANT MEDS AT THIS TIME. BILAT GROIN ACCESS SITES ARE WNL. SITES x2 TO R FOOT ARE WNL. PLAN IS FOR POSS D/C HOME TODAY. WILL CONTINUE TO MONITOR & UPDATE NEEDED.
[2018-11-11] MEDS ORDERED: CLOP75 PO ×2 (10:31)
--- NOTE | 2018-11-11 11:50 | NUR ---
DISCHARGE TO HOME: PIV & ALL MONITORS HAVE BEEN REMOVED. WOUND TO PT's R 5TH TOE HAS BEEN CHANGED. GROIN ACCESS SITES & PEDAL ACCESS SITES ARE WNL ON D/C. EDUCATION HAS BEEN PROVIDED REGARDING NEW MED PLAVIX, GROIN SITE CARE & MUSCLE SPASMS. PT, SPOUSE & DAUGHTER HAVE ALL VERBALIZED UNDERSTANDING OF THE EDUCATION PROVIDED. PT, D/C PACKET & ALL BELONGINGS HAVE BEEN TAKEN OUT W/ PT VIA WC AT 1145.
[2018-12-23] MEDS ORDERED: Aspir 8181 MG PO (12:37)
[2018-12-23] MEDS ORDERED: AMLO10 PO (12:38)
[2018-12-23] MEDS ORDERED: HYDCHL25 PO (12:38)
[2018-12-23] MEDS ORDERED: Benazepril HCl20 MG PO (12:38)
[2018-12-23] MEDS ORDERED: ATOR40TA PO (12:38)
[2018-12-23] MEDS ORDERED: Florastor250 MG PO (12:39)
[2018-12-23] MEDS ORDERED: LEVSOD50 PO (12:39)
[2018-12-23] MEDS ORDERED: INSULANPEN SC (12:39)
[2018-12-23] MEDS ORDERED: Glucophage1000 MG PO (12:39)
[2018-12-23] MEDS ORDERED: DOCU100 PO (12:40)
== END 2018-11-11 11:49 | disposition home or self-care (01) ==
LOC: MHTC 08:54 → ICUE 15:00 → MHTC 11-11 11:49
DX: E11.51 Type 2 diabetes mellitus with diabetic peripheral angiopathy without gangrene (principal); I70.201 Unspecified atherosclerosis of native arteries of extremities, right leg; I74.3 Embolism and thrombosis of arteries of the lower extremities; E11.621 Type 2 diabetes mellitus with foot ulcer; L97.519 Non-pressure chronic ulcer of other part of right foot with unspecified severity; Z79.02 Long term (current) use of antithrombotics/antiplatelets
CPT/HCPCS: 37186; 37225; 37229; 37233; 75625; 75710; 75716; 76937; 82947; 85347; 99152; 99153; C1724; C1725; C1757; C1769; C1884; C1887; C1894; C2623; J1644; J2250; J3010; J7030; Q9967

== ENCOUNTER 2018-11-15 00:19 | Day surgery (SDC) | payer OTHER ==
[~2018-11-15 00:19] MED LIST changes: +AMOCLA875 PO; +CLOP75 PO; +Colace100 MG PO
[2018-12-23] MEDS ORDERED: Aspir 8181 MG PO (12:37)
[2018-12-23] MEDS ORDERED: AMLO10 PO (12:38)
[2018-12-23] MEDS ORDERED: ATOR40TA PO (12:38)
[2018-12-23] MEDS ORDERED: Benazepril HCl20 MG PO (12:38)
[2018-12-23] MEDS ORDERED: HYDCHL25 PO (12:38)
[2018-12-23] MEDS ORDERED: INSULANPEN SC (12:39)
[2018-12-23] MEDS ORDERED: LEVSOD50 PO (12:39)
[2018-12-23] MEDS ORDERED: Glucophage1000 MG PO (12:39)
[2018-12-23] MEDS ORDERED: Florastor250 MG PO (12:39)
[2018-12-23] MEDS ORDERED: DOCU100 PO (12:40)
== END 2018-11-15 22:46 | disposition home or self-care (01) ==
LOC: WOUND 00:19
DX: E11.621 Type 2 diabetes mellitus with foot ulcer (principal); L97.513 Non-pressure chronic ulcer of other part of right foot with necrosis of muscle; T81.31XS Disruption of external operation (surgical) wound, not elsewhere classified, sequela; E11.21 Type 2 diabetes mellitus with diabetic nephropathy; E11.51 Type 2 diabetes mellitus with diabetic peripheral angiopathy without gangrene
CPT/HCPCS: G0463

== ENCOUNTER 2018-11-22 00:26 | Day surgery (SDC) | payer OTHER ==
[2018-12-23] MEDS ORDERED: Aspir 8181 MG PO (12:37)
[2018-12-23] MEDS ORDERED: HYDCHL25 PO (12:38)
[2018-12-23] MEDS ORDERED: AMLO10 PO (12:38)
[2018-12-23] MEDS ORDERED: Benazepril HCl20 MG PO (12:38)
[2018-12-23] MEDS ORDERED: ATOR40TA PO (12:38)
[2018-12-23] MEDS ORDERED: INSULANPEN SC (12:39)
[2018-12-23] MEDS ORDERED: LEVSOD50 PO (12:39)
[2018-12-23] MEDS ORDERED: Florastor250 MG PO (12:39)
[2018-12-23] MEDS ORDERED: Glucophage1000 MG PO (12:39)
[2018-12-23] MEDS ORDERED: DOCU100 PO (12:40)
== END 2018-11-22 22:46 | disposition home or self-care (01) ==
LOC: WOUND 00:26
DX: E11.621 Type 2 diabetes mellitus with foot ulcer (principal); L97.512 Non-pressure chronic ulcer of other part of right foot with fat layer exposed; T81.31XS Disruption of external operation (surgical) wound, not elsewhere classified, sequela; E11.21 Type 2 diabetes mellitus with diabetic nephropathy; E11.51 Type 2 diabetes mellitus with diabetic peripheral angiopathy without gangrene

== ENCOUNTER 2018-11-29 00:27 | Day surgery (SDC) | payer OTHER ==
[2018-12-23] MEDS ORDERED: Aspir 8181 MG PO (12:37)
[2018-12-23] MEDS ORDERED: AMLO10 PO (12:38)
[2018-12-23] MEDS ORDERED: Benazepril HCl20 MG PO (12:38)
[2018-12-23] MEDS ORDERED: ATOR40TA PO (12:38)
[2018-12-23] MEDS ORDERED: HYDCHL25 PO (12:38)
[2018-12-23] MEDS ORDERED: INSULANPEN SC (12:39)
[2018-12-23] MEDS ORDERED: Glucophage1000 MG PO (12:39)
[2018-12-23] MEDS ORDERED: Florastor250 MG PO (12:39)
[2018-12-23] MEDS ORDERED: LEVSOD50 PO (12:39)
[2018-12-23] MEDS ORDERED: DOCU100 PO (12:40)
== END 2018-11-29 23:31 | disposition home or self-care (01) ==
LOC: WOUND 00:27
DX: E11.621 Type 2 diabetes mellitus with foot ulcer (principal); L97.512 Non-pressure chronic ulcer of other part of right foot with fat layer exposed; T81.31XS Disruption of external operation (surgical) wound, not elsewhere classified, sequela; E11.21 Type 2 diabetes mellitus with diabetic nephropathy; E11.51 Type 2 diabetes mellitus with diabetic peripheral angiopathy without gangrene; I73.9 Peripheral vascular disease, unspecified

== ENCOUNTER 2018-12-06 14:41 | Day surgery (SDC) | payer OTHER ==
[2018-12-23] MEDS ORDERED: Aspir 8181 MG PO (12:37)
[2018-12-23] MEDS ORDERED: ATOR40TA PO (12:38)
[2018-12-23] MEDS ORDERED: AMLO10 PO (12:38)
[2018-12-23] MEDS ORDERED: HYDCHL25 PO (12:38)
[2018-12-23] MEDS ORDERED: Benazepril HCl20 MG PO (12:38)
[2018-12-23] MEDS ORDERED: INSULANPEN SC (12:39)
[2018-12-23] MEDS ORDERED: Glucophage1000 MG PO (12:39)
[2018-12-23] MEDS ORDERED: LEVSOD50 PO (12:39)
[2018-12-23] MEDS ORDERED: Florastor250 MG PO (12:39)
[2018-12-23] MEDS ORDERED: DOCU100 PO (12:40)
== END 2018-12-06 22:47 | disposition home or self-care (01) ==
LOC: WOUND 14:41
DX: T87.89 Other complications of amputation stump (principal); E11.621 Type 2 diabetes mellitus with foot ulcer; L97.512 Non-pressure chronic ulcer of other part of right foot with fat layer exposed; E11.51 Type 2 diabetes mellitus with diabetic peripheral angiopathy without gangrene; I73.9 Peripheral vascular disease, unspecified; E11.21 Type 2 diabetes mellitus with diabetic nephropathy; I10 Essential (primary) hypertension; G47.33 Obstructive sleep apnea (adult) (pediatric)

== ENCOUNTER 2018-12-13 00:22 | Day surgery (SDC) | payer OTHER ==
[2018-12-23] MEDS ORDERED: Aspir 8181 MG PO (12:37)
[2018-12-23] MEDS ORDERED: ATOR40TA PO (12:38)
[2018-12-23] MEDS ORDERED: HYDCHL25 PO (12:38)
[2018-12-23] MEDS ORDERED: Benazepril HCl20 MG PO (12:38)
[2018-12-23] MEDS ORDERED: AMLO10 PO (12:38)
[2018-12-23] MEDS ORDERED: Florastor250 MG PO (12:39)
[2018-12-23] MEDS ORDERED: Glucophage1000 MG PO (12:39)
[2018-12-23] MEDS ORDERED: LEVSOD50 PO (12:39)
[2018-12-23] MEDS ORDERED: INSULANPEN SC (12:39)
[2018-12-23] MEDS ORDERED: DOCU100 PO (12:40)
== END 2018-12-13 23:02 | disposition home or self-care (01) ==
LOC: WOUND 00:22
DX: E11.621 Type 2 diabetes mellitus with foot ulcer (principal); L97.513 Non-pressure chronic ulcer of other part of right foot with necrosis of muscle; T81.31XS Disruption of external operation (surgical) wound, not elsewhere classified, sequela; E11.21 Type 2 diabetes mellitus with diabetic nephropathy; E11.51 Type 2 diabetes mellitus with diabetic peripheral angiopathy without gangrene
CPT/HCPCS: G0463

== ENCOUNTER 2018-12-16 07:33 | Day surgery (SDC) | payer OTHER ==
[~2018-12-16] VITALS: Ht 170.2 cm; Wt 76.2 kg
--- NOTE | 2018-12-16 08:36 | NUR ---
12/16/18 0836 Xena Benitez RN NOTIFED DR REDDY AND DR LINCOLN THAT THE PATIENT TOOK HIS PLAVIX THIS MORNING AT 0630 AND ASPIRIN 81MG [address]'S DECIDED TO POSTPONE THE SURGERY AT THIS TIME. RN NOTIFIED PT. IV DC'D WNL. PT WILL WAIT TO SPEAK WITH
[2018-12-23] MEDS ORDERED: Aspir 8181 MG PO (12:37)
[2018-12-23] MEDS ORDERED: Benazepril HCl20 MG PO (12:38)
[2018-12-23] MEDS ORDERED: HYDCHL25 PO (12:38)
[2018-12-23] MEDS ORDERED: ATOR40TA PO (12:38)
[2018-12-23] MEDS ORDERED: AMLO10 PO (12:38)
[2018-12-23] MEDS ORDERED: Florastor250 MG PO (12:39)
[2018-12-23] MEDS ORDERED: LEVSOD50 PO (12:39)
[2018-12-23] MEDS ORDERED: INSULANPEN SC (12:39)
[2018-12-23] MEDS ORDERED: Glucophage1000 MG PO (12:39)
[2018-12-23] MEDS ORDERED: DOCU100 PO (12:40)
== END 2018-12-16 09:00 | disposition home or self-care (01) ==
LOC: ORSCSDS 07:33
DX: I96 Gangrene, not elsewhere classified (principal); Z53.9 Procedure and treatment not carried out, unspecified reason; M86.9 Osteomyelitis, unspecified
CPT/HCPCS: 82947; J0171; J2250; J7120

== ENCOUNTER → 2018-12-20 | Outpatient (CLI) | payer OTHER ==
[~2018-12-20] MED LIST changes: +AMLO10 PO; +Amiodarone HCl200 MG; +Aspir 8181 MG PO; +Benazepril HCl20 MG PO; +CLOP75; +DOCU100 PO; +Glucophage1000 MG PO; +LEVSOD50 PO
[2018-12-20 15:49] LABS: BASOPHILS ABSOLUTE AUTO 0.06 K/mm3 (0.00-0.23); BASOPHILS PERCENT AUTO 1 % (0-2); EOSINOPHILS PERCENT AUTO 2 % (0-6); Hematocrit 35.5 % (37.0-53.0); Hemoglobin 11.9 g/dL (13.5-17.5); IMMATURE GRAN ABSOLUTE AUTO 0.03 K/mm3 (0.00-0.10); IMMATURE GRAN PERCENT AUTO 0 % (0-1); LYMPHOCYTES ABSOLUTE AUTO 1.38 K/mm3 (0.84-5.20); LYMPHOCYTES PERCENT AUTO 16 % (21-46); MONOCYTES ABSOLUTE AUTO 0.66 K/mm3 (0.16-1.47); MONOCYTES PERCENT AUTO 8 % (4-13); Mean Corpuscular HGB 30.2 pg (26.0-34.0); Mean Corpuscular HGB Conc 33.5 g/dL (31.5-36.5); Mean Corpuscular Volume 90 fL (80-100); Mean Platelet Volume 9.3 fL (9.1-12.4); NEUTROPHILS ABSOLUTE AUTO 6.18 K/mm3 (1.96-9.15); NEUTROPHILS PERCENT AUTO 73 % (41-73); Platelet Count 289 K/mm3 (150-400); RDW Coefficient Variation 12.5 % (11.7-14.2); RDW Standard Deviation 41.1 fL (35.1-46.3); Red Blood Cell Count 3.94 M/mm3 (4.30-5.90); White Blood Cell Count 8.51 K/mm3 (4.00-11.30)
[2018-12-20 16:05] LABS: Alanine Aminotransfer (ALT/SGP 21 U/L (12-78); Albumin, Blood 3.2 g/dL (3.4-5.0); Albumin/Globulin Ratio 0.7 (0.8-1.8); Alk Phos 75 U/L (40-126); Anion Gap 7 mmol/L (6-16); Aspartate Aminotrans (AST/SGOT 18 U/L (12-37); Bilirubin, Total 0.4 mg/dL (0.1-1.0); Blood Urea Nitrogen 17 mg/dL (8-24); Bun/Creatinine Ratio 19.3 (12.0-20.0); CO2, Blood 29 mmol/L (21-32); Chloride, Blood 101 mmol/L (98-108); Creatinine, Blood 0.88 mg/dL (0.60-1.20); Globulin, Blood 4.3 g/dL (2.2-4.0); Glomerular Filtration Rate >60 (60-); Glucose, Blood 92 mg/dL (70-99); Potassium, Blood 3.7 mmol/L (3.5-5.5); Sodium, Blood 137 mmol/L (136-145); Total Protein, Blood 7.5 g/dL (6.4-8.2)
[2018-12-20 16:09] LABS: Troponin I <0.017 ng/mL (0.000-0.040)
[2018-12-20 16:43] LABS: International Normalized Ratio 1.01; Prothrombin Time Results 10.7 Sec (9.7-11.5)
== END ==
LOC: LAB EV 15:42 → LAB SHORT 15:42
PROVIDERS: Emergency Medicine
DX: Z79.01 Long term (current) use of anticoagulants (principal); Z51.81 Encounter for therapeutic drug level monitoring; R00.2 Palpitations
CPT/HCPCS: 80053; 84484; 85025; 85610

== ENCOUNTER 2018-12-26 12:05 | Day surgery (SDC) | payer OTHER ==
[~2018-12-26] VITALS: Ht 170.2 cm; Wt 77.2 kg
[~2018-12-26 12:05] MED LIST changes: -Amiodarone HCl200 MG; -CLOP75
[2018-12-26] MEDS ORDERED: Amiodarone HCl200 MG (13:08)
[2018-12-26] MEDS ORDERED: CLOP75 (13:09)
--- NOTE | 2018-12-26 13:45 | NUR ---
12/26/18 5126 Shanique Brannon IODINE GEL USED FOR PREP PER DR. REDDY'S INSTRUCTION.
== END 2018-12-26 15:46 | disposition home or self-care (01) ==
LOC: ORSCSDS 12:05
PROVIDERS: Podiatrist Foot & Ankle Surgery
PROC: 0Y6M0ZD Detachment at Right Foot, Partial 4th Ray, Open Approach (ICD-10-PCS; principal; 2018-12-26 13:45)
PROC: 0Y6M0ZF Detachment at Right Foot, Partial 5th Ray, Open Approach (ICD-10-PCS; principal; 2018-12-26 13:45)
PROC: 0Y6M0Z9 Detachment at Right Foot, Partial 1st Ray, Open Approach (ICD-10-PCS; principal; 2018-12-26 13:45)
PROC: 0Y6M0ZB Detachment at Right Foot, Partial 2nd Ray, Open Approach (ICD-10-PCS; principal; 2018-12-26 13:45)
PROC: 0Y6M0ZC Detachment at Right Foot, Partial 3rd Ray, Open Approach (ICD-10-PCS; principal; 2018-12-26 13:45)
DX: M86.9 Osteomyelitis, unspecified (principal); L03.031 Cellulitis of right toe; I10 Essential (primary) hypertension; E11.9 Type 2 diabetes mellitus without complications; I48.91 Unspecified atrial fibrillation; Z79.01 Long term (current) use of anticoagulants; Z79.899 Other long term (current) drug therapy; G47.33 Obstructive sleep apnea (adult) (pediatric); I25.10 Atherosclerotic heart disease of native coronary artery without angina pectoris; Z79.82 Long term (current) use of aspirin
CPT/HCPCS: 82947; 88305; 88311; J0171; J0690; J1885; J2001; J2250; J2405; J2704; J3010; J7120

== ENCOUNTER 2019-01-20 00:57 | Day surgery (SDC) | payer OTHER ==
[~2019-01-20 00:57] MED LIST changes: +Amiodarone HCl200 MG; +CLOP75
== END 2019-01-20 22:54 | disposition home or self-care (01) ==
LOC: WOUND
DX: E11.621 Type 2 diabetes mellitus with foot ulcer (principal); L97.516 Non-pressure chronic ulcer of other part of right foot with bone involvement without evidence of necrosis; G47.33 Obstructive sleep apnea (adult) (pediatric); E11.51 Type 2 diabetes mellitus with diabetic peripheral angiopathy without gangrene; E11.21 Type 2 diabetes mellitus with diabetic nephropathy; I10 Essential (primary) hypertension; E03.9 Hypothyroidism, unspecified; Z95.1 Presence of aortocoronary bypass graft; Z87.39 Personal history of other diseases of the musculoskeletal system and connective tissue
CPT/HCPCS: 87071; 87075; 87205; G0463

== ENCOUNTER 2019-02-10 08:23 | Inpatient (IN) | payer OTHER ==
[~2019-02-10] VITALS: Ht 170.2 cm; Wt 77.0 kg
[~2019-02-10 08:23] MED LIST changes: -Amiodarone HCl200 MG; +Amiodarone HCl200 MG PO
[2019-02-22] MEDS ORDERED: Florastor250 MG PO (11:11)
[2019-02-22] MEDS ORDERED: DOCU100 PO (11:11)
[2019-02-22] MEDS ORDERED: HYDR1TAB94 PO (11:12)
[2019-02-22] MEDS ORDERED: Doxycycline Hy100 MG PO (11:12)
[2019-02-22] MEDS ORDERED: ELIQUIS5 MG PO (11:12)
[2019-02-22] MEDS ORDERED: AMOX875 PO (11:12)
[2019-02-22] MEDS ORDERED: ASPI81CH PO (11:18)
--- NOTE | 2019-02-24 07:51 | NUR ---
History, Chart, Medications and Allergies reviewed before start of procedure. Patient confirms NPO status and agrees with scheduled surgery.
[2019-02-24] MEDS ORDERED: BASAGLAR K100 UNIT/1 ID (08:14)
--- NOTE | 2019-02-24 09:25 | NUR ---
"DAY SURGERY RN | TO OR BOTH DOCTORS AND DIRECTOR [place] HAVE SEEN. CHECKLIST COMPLETED. NO ISSUES. TO OR."
--- NOTE | 2019-02-24 14:52 | NUR ---
WORKING W/ PT AND OT, APPEARS TO BE TOLERATING FAIRLY WELL.
--- NOTE | 2019-02-24 17:03 | NUR ---
SUMMARY OOB TO RECLINER, WORKED W/ PT AND OT TODAY, TOLERATED WELL, PAIN HAS BEEN MANAGEABLE WITH NORCO AND IV FENTANYL, DSG C/D/I, VSS, TOLERATING PO WELL, VOIDING WITHOUT DIFFICULTY, NO ACUTE CHANGES THIS SHIFT.
--- NOTE | 2019-02-25 04:07 | NUR ---
SHIFT SUMMARY: PT POD #1 FOR R BKA. STUMP SOCK CDI. RLE ELEVATED ON PILLOWS WITH ICE PACK ON PRN. PAIN MANAGED WITH 10MG NORCO AND 50MCG OF FENTANYL PER EMAR. PT TRANSFERING FROM BED/CHAIR WITH 1-2 ASSIST W/FWW+GB. MONO ACTIVITY WELL. MONO PO WITH IV SALINE LOCKED EXCEPT FOR ABX. VOIDING IN URINAL. CBG 201 THIS SHIFT.
[2019-02-25 04:23] LABS: BASOPHILS ABSOLUTE AUTO 0.04 K/mm3 (0.00-0.23); BASOPHILS PERCENT AUTO 1 % (0-2); EOSINOPHILS ABSOLUTE AUTO 0.18 K/mm3 (0.00-0.68); EOSINOPHILS PERCENT AUTO 3 % (0-6); Hematocrit 33.1 % (37.0-53.0); Hemoglobin 10.5 g/dL (13.5-17.5); IMMATURE GRAN ABSOLUTE AUTO 0.01 K/mm3 (0.00-0.10); IMMATURE GRAN PERCENT AUTO 0 % (0-1); LYMPHOCYTES ABSOLUTE AUTO 1.04 K/mm3 (0.84-5.20); LYMPHOCYTES PERCENT AUTO 15 % (21-46); MONOCYTES ABSOLUTE AUTO 0.68 K/mm3 (0.16-1.47); MONOCYTES PERCENT AUTO 10 % (4-13); Mean Corpuscular HGB 29.7 pg (26.0-34.0); Mean Corpuscular HGB Conc 31.7 g/dL (31.5-36.5); Mean Corpuscular Volume 94 fL (80-100); NEUTROPHILS ABSOLUTE AUTO 4.97 K/mm3 (1.96-9.15); NEUTROPHILS PERCENT AUTO 72 % (41-73); Platelet Count 192 K/mm3 (150-400); RDW Coefficient Variation 14.4 % (11.7-14.2); RDW Standard Deviation 49.9 fL (35.1-46.3); Red Blood Cell Count 3.54 M/mm3 (4.30-5.90); White Blood Cell Count 6.92 K/mm3 (4.00-11.30)
[2019-02-25 04:45] LABS: Alanine Aminotransfer (ALT/SGP 25 U/L (12-78); Albumin, Blood 3.1 g/dL (3.4-5.0); Albumin/Globulin Ratio 0.9 (0.8-1.8); Alk Phos 76 U/L (50-136); Anion Gap 5 mmol/L (6-16); Aspartate Aminotrans (AST/SGOT 28 U/L (12-37); Bilirubin, Total 0.6 mg/dL (0.1-1.0); Blood Urea Nitrogen 14 mg/dL (8-24); Bun/Creatinine Ratio 18.7 (12.0-20.0); CO2, Blood 29 mmol/L (21-32); Calcium, Blood 8.5 mg/dL (8.5-10.1); Chloride, Blood 104 mmol/L (98-108); Creatinine, Blood 0.75 mg/dL (0.60-1.20); Globulin, Blood 3.5 g/dL (2.2-4.0); Glomerular Filtration Rate >60 (60-); Glucose, Blood 92 mg/dL (70-99); Potassium, Blood 3.8 mmol/L (3.5-5.5); Sodium, Blood 138 mmol/L (136-145); Total Protein, Blood 6.6 g/dL (6.4-8.2)
[2019-02-25 09:57] LABS: Percent Saturation 10.1 % (20.0-50.0)
--- NOTE | 2019-02-25 18:03 | NUR ---
SHIFT SUMMARY PT EATING AND DRINKING, VOIDING, PASSING GAS. PT UP TO CHAIR. PT WORKED WITH THERAPY. PT BEEN ASSISTED WITH ADL'S PRN AND MED FOR PAIN PRN. PT HAS HAD RLE ELEVATED T/O AND PAS TO LLE.
[2019-02-26 04:19] LABS: BASOPHILS ABSOLUTE AUTO 0.03 K/mm3 (0.00-0.23); BASOPHILS PERCENT AUTO 0 % (0-2); EOSINOPHILS ABSOLUTE AUTO 0.15 K/mm3 (0.00-0.68); EOSINOPHILS PERCENT AUTO 2 % (0-6); Hematocrit 30.3 % (37.0-53.0); Hemoglobin 9.8 g/dL (13.5-17.5); IMMATURE GRAN ABSOLUTE AUTO 0.02 K/mm3 (0.00-0.10); IMMATURE GRAN PERCENT AUTO 0 % (0-1); LYMPHOCYTES ABSOLUTE AUTO 1.22 K/mm3 (0.84-5.20); LYMPHOCYTES PERCENT AUTO 16 % (21-46); MONOCYTES ABSOLUTE AUTO 0.89 K/mm3 (0.16-1.47); MONOCYTES PERCENT AUTO 12 % (4-13); Mean Corpuscular HGB 29.8 pg (26.0-34.0); Mean Corpuscular HGB Conc 32.3 g/dL (31.5-36.5); Mean Corpuscular Volume 92 fL (80-100); Mean Platelet Volume 9.6 fL (9.1-12.4); NEUTROPHILS ABSOLUTE AUTO 5.36 K/mm3 (1.96-9.15); NEUTROPHILS PERCENT AUTO 70 % (41-73); Platelet Count 186 K/mm3 (150-400); RDW Coefficient Variation 14.4 % (11.7-14.2); RDW Standard Deviation 49.2 fL (35.1-46.3); Red Blood Cell Count 3.29 M/mm3 (4.30-5.90); White Blood Cell Count 7.67 K/mm3 (4.00-11.30)
--- NOTE | 2019-02-26 04:27 | NUR ---
PATIENT HAS HAD MODERATE PAIN CONTROLED WITH PO MEDICATIONS. HE IS UP IN ROOM WITH ONEPERSON ASSIST, GAIT BELT & FFW. HE NEEDS TO BE REMINDED TO ATTEMP TO CENTER HIS UPPER BODY WEIGHT OVER HIS LT LEG, TO STAND TALL POSSIBLE AND TO NOT LEAN TOO FAR FORWARD WHILE WALKING. WHILE IN BE PATIENT'S RT BKA STUMP IS ELEVATED ON 2 PILLOWS. DRESSING/STUMP SOCK IS CLEAN AND DRY. NO OTHER ACUTE CHANGES. PATIENT HAS FELT LIKE HES IS READY TO HAVE A BM, HOWEVER FOR NOW HE IS PASSING GAS.
[2019-02-26 04:58] LABS: Alanine Aminotransfer (ALT/SGP 23 U/L (12-78); Albumin, Blood 2.8 g/dL (3.4-5.0); Albumin/Globulin Ratio 0.8 (0.8-1.8); Alk Phos 67 U/L (50-136); Anion Gap 5 mmol/L (6-16); Aspartate Aminotrans (AST/SGOT 26 U/L (12-37); Bilirubin, Total 0.7 mg/dL (0.1-1.0); Blood Urea Nitrogen 16 mg/dL (8-24); Bun/Creatinine Ratio 18.4 (12.0-20.0); CO2, Blood 28 mmol/L (21-32); Calcium, Blood 8.4 mg/dL (8.5-10.1); Chloride, Blood 101 mmol/L (98-108); Creatinine, Blood 0.87 mg/dL (0.60-1.20); Globulin, Blood 3.6 g/dL (2.2-4.0); Glomerular Filtration Rate >60 (60-); Glucose, Blood 119 mg/dL (70-99); Potassium, Blood 3.8 mmol/L (3.5-5.5); Sodium, Blood 134 mmol/L (136-145); Total Protein, Blood 6.4 g/dL (6.4-8.2)
--- NOTE | 2019-02-26 09:55 | NUR ---
PT WORKING WITH THERAPY.
--- NOTE | 2019-02-26 11:08 | NUR ---
DR MAXWELL HERE TO SEE PT RECENTLY.
--- NOTE | 2019-02-26 15:52 | NUR ---
SHIFT SUMMARY: PT EATING AND DRINKING, VOIDING, AND HAD BM TODAY. PT UP WITH ASSIST. PT BEEN ASSISTED WITH ADL'S PRN. PT BEEN MED FOR PAIN PRN.
--- NOTE | 2019-02-26 18:55 | NUR ---
DR OCONNOR RECENTLY HERE TO SEE PT.
[2019-02-27 03:49] LABS: Albumin, Blood 2.6 g/dL (3.4-5.0); Anion Gap 4 mmol/L (6-16); Blood Urea Nitrogen 16 mg/dL (8-24); Bun/Creatinine Ratio 20.1 (12.0-20.0); CO2, Blood 28 mmol/L (21-32); Calcium, Blood 8.4 mg/dL (8.5-10.1); Chloride, Blood 103 mmol/L (98-108); Glomerular Filtration Rate >60 (60-); Glucose, Blood 57 mg/dL (70-99); Phosphorus, Blood 2.9 mg/dL (2.5-4.9); Potassium, Blood 3.6 mmol/L (3.5-5.5); Sodium, Blood 135 mmol/L (136-145)
--- NOTE | 2019-02-27 04:46 | NUR ---
SHIFT SUMMARY S/P RT BKA. EXTREMITY ELEVATED ON PILLOW. PT NEEDS 1X ASSIST W/ FWW TO BATHROOM. VOIDING, NO BM THIS SHIFT, GIVEN STOOL SOFTENER PER ORDER. PT VERY CONCERNED REGARDING BM'S, ALTHOUGH HAD BM YESTERDAY. PT RESTED MOST OF SHIFT. DRESSING TO R STUMP CDI. PT A/O X4. VITAL SIGNS WNL. ASSISTED W/ADL'S PRN. PAIN MANAGED WITH PO PAIN MED PER ORDERS.
--- NOTE | 2019-02-27 11:27 | NUR ---
SPOKE WITH DR. MAXWELL CONCERNING PT REQUESTING MORE BOWEL TREATMENT, SEE NEW ORDER. DR. MAXWELL WOULD LIKE TO ARRANGE FOR DC TO SNF. SPOKE WITH JEOVANNY, [employer] AND SHE HAS MADE PLANS TO DC PT TO [facility] WHEN RECIEVE ORDER FROM ORTHOPEDIC MD. PT IS STABLE, WILL CTM.
--- NOTE | 2019-02-27 15:41 | NUR ---
IOANA MANN REPORTS TO THIS RN THAT PT CBG IS 52 AT 0754. UPON ASSESSMENT PT IS A/O. SITTING UP AND EATING BREAKFAST, DRANK 230ML OF ORANGE JUICE. PT REPORTS FEELING "JUST FINE" WILL CTM.
--- NOTE | 2019-02-27 16:03 | NUR ---
SUMMARY: PT IS POD3 R BKA. DOING WELL. A/O, VSS. MOVING WELL WITH FWW AND GAIT BELT, 1 ASSIST. WORKED WITH PT/OT TODAY. PAIN SEEMS TO BE MANAGED. PT HAD BM TODAY FOLLOWING A FLEET ENEMA. CBG'S FOR AFTERNOON AND EVENING STABLE. PLAN IS TO DC TO [facility] WHEN CLEARED BY ORTHOPEDICS. WILL CTM AND REPORT TO DEIDRA RN.
--- NOTE | 2019-02-27 18:39 | NUR ---
DR MONTEMAYOR TO SEE PT AT ABOUT 1800. DRESSING AND STUMP SOCK CHANGED BY DR. MONTEMAYOR, PT TOLERATED WELL.
--- NOTE | 2019-02-28 06:05 | NUR ---
SHIFT SUMMARY POD 4 RIGHT BKA. PT [id number]. VSS. STUMP SOCK IN PLACE CDI. PT TRANFERING SELF TO BSC WITH FWW, GB. TOLERATING WELL. INC OF STOOL DURING SHIFT. CONT OF BLADDER. MEDICATED FOR PAIN X1. DENYING PAIN AT THIS TIME. TOLERATING PO FLUIDS.
--- NOTE | 2019-02-28 10:35 | NUR ---
DR MONTEMAYOR IN TO SEE PT.
--- NOTE | 2019-02-28 13:57 | NUR ---
REPORT CALLED TO LIDIA HEBERT
--- NOTE | 2019-02-28 13:58 | NUR ---
PT DRESSED AND AWAITING RIDE TO REHAB.
--- NOTE | 2019-02-28 14:28 | NUR ---
pt left unit in [place] accompanied by transport to go to snf.
[2019-04-05] MEDS ORDERED: ANTIBIOTIC PO (14:18)
== END 2019-02-28 14:30 | DRG 617 ==
LOC: SURS 02-24 07:07 → PRE IP 02-24 09:00 → SURS 02-24 12:55
PROVIDERS: Internal Medicine; Nurse Practitioner Acute Care; ADMIT Orthopaedic Surgery
PROC: 0Y6F0ZZ Detachment at Right Knee Region, Open Approach (ICD-10-PCS; principal; 2019-02-24 09:00)
DX: E11.621 Type 2 diabetes mellitus with foot ulcer (principal); E11.52 Type 2 diabetes mellitus with diabetic peripheral angiopathy with gangrene; I96 Gangrene, not elsewhere classified; M86.171 Other acute osteomyelitis, right ankle and foot; E11.69 Type 2 diabetes mellitus with other specified complication; Z79.4 Long term (current) use of insulin; G47.33 Obstructive sleep apnea (adult) (pediatric); E11.42 Type 2 diabetes mellitus with diabetic polyneuropathy; E78.5 Hyperlipidemia, unspecified; K59.00 Constipation, unspecified; I48.0 Paroxysmal atrial fibrillation; I25.10 Atherosclerotic heart disease of native coronary artery without angina pectoris; Z95.1 Presence of aortocoronary bypass graft; S91.301A Unspecified open wound, right foot, initial encounter
CPT/HCPCS: 36415; 71045; 80053; 80069; 82728; 82947; 83540; 83550; 85025; 88307; 88311; 97110; 97112; 97116; 97162; 97166; 97530; 97535; A9270-GY; J0690; J1885; J2250; J2370; J2405; J2704; J2710; J3010; J3370; J7120

== ENCOUNTER 2019-03-21 08:47 | Day surgery (SDC) | payer OTHER ==
[~2019-03-21] VITALS: Ht 152.4 cm; Wt 74.0 kg
[~2019-03-21 08:47] MED LIST changes: +AMOX875 PO; +BASAGLAR K100 UNIT/1 ID; +Doxycycline Hy100 MG PO; +ELIQUIS5 MG PO; +HYDR1TAB94 PO
--- NOTE | 2019-03-21 11:21 | NUR ---
Pt arrives with daughter Neyda who brought patient from [facility] to have angiogram with Dr. Avalos. Pt is able to move to bed by himself he is a right BKA. He brought his own wheel chair with one hearing aid left.
[2019-03-21] MEDS ORDERED: MELA3 PO (11:28)
[2019-03-21] MEDS ORDERED: SENN187 PO (11:30)
[2019-03-21] MEDS ORDERED: GABA100 PO (11:35)
--- NOTE | 2019-03-21 12:10 | NUR ---
Pt is off of Eliquis I spoke to Evelio from [facility] who stated the patient has been off after looking at his mED Rec.
--- NOTE | 2019-03-21 18:39 | NUR ---
ASSUMED CARE PATIENT RECEIVED FROM [facility]ART [facility] BY BOYD AND TRANSFERRED TO PCU BED BY 4 STAFF VIA SLIP SHEET. REPORT RECEIVED FROM [facility] RN CANDIS. BILAT GROIN SITES CLEAR AND CLEAN, NO DRAINAGE, COVERED WITH CLEAR ANDREAS DRESSING. PT DENIES PAIN AT SITES, DENIES PAIN IN EXTREMITY, DENIES LOSS OF SENSATION IN SAME. PERFUSION TO EXTREMITIES APPEARS W/IN NORMAL LIMITS. 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 LEG IS STABILIZED WITH BLANKET OVER LEG AND UNDER MATTRESS ON BOTH SIDES. PATIENT EATING FINGERFOOD AND HAPPY A CLAM
--- NOTE | 2019-03-22 02:58 | NUR ---
asked for sock for R knee, will pass on request to day staff, placed knee on pillow to reduce stress/pressure,states good for now
--- NOTE | 2019-03-22 10:12 | NUR ---
ASSUMED CARE OF PATIENT AT 0700 W/REPORT FROM MARÍA ELENA DUPREE. PATIENT AWAKE IN BED A&O WITH NO STATED PHYSICAL ISSUES. HEART RATE AT AROUND 50 BPM, PATIENT STATES NORMAL AND AYMPTOMATIC. ALL OTHER VSS AND WNL. PATIENT ASKED TO LOCATE HIS PERSONAL SOCK FOR STUMP, WHICH WAS LOCATED AT HOME HIS DAUGHTER HAD TAKEN IT FOR CLEANING WITHOUT BEING ABLE TO TELL HIM. BOTH GROIN SITES INTACT AND WITHIN NORMAL LIMITS, PATIENT DENIES PAIN. WILL CONTINUE TO MONITOR.
--- NOTE | 2019-03-22 11:25 | NUR ---
PATIENT EXPRESSED CONCERN AT THE SIGHT OF MINOR BRUISING AT HIS IV SITE. IV FLUSHES EASILY, BUT PT STATES IS TENDER WITH TOUCH AND FLUSH. IV IS PATENT AND PATIENT IS EXPECTED TO DISCHARGE SOON, NO ACTION TAKEN. WILL CONTINUE TO MONITOR WHILE AWAITING DISCHARGE ORDERS
--- NOTE | 2019-03-22 13:05 | NUR ---
Contacted Kim Chaudhary to let her know that discharge orders have been received.
--- NOTE | 2019-03-22 15:49 | NUR ---
DISCHARGE. ORDERS RECEIVED, REPORT GIVEN TO RANDYTALLMADGE CARLOS Ch PATIENT VERBALIZED UNDERSTANDING OF ALL DISCHARGE ORDERS INCLUDING MEDICATIONS AND ACTIVITY RESTRICTIONS PER MD ORDER. PATIENT IS IN POSSESSION OF ALL HIS PERSONAL BELONGINGS AND IS AWAITING SCHEDULED TRANSPORTATION IN HIS ROOM. PATIENT'S IV WAS DC'D WITHIN NORMAL LIMITS, NO NEW PAIN, NO NEW REDNESS, NO SWELLING. WILL CONTINUE TO MONITOR UNTIL TRANSPORT ARRIVES
[2019-04-05] MEDS ORDERED: ANTIBIOTIC PO (14:18)
== END 2019-03-22 16:20 ==
LOC: MHTC 08:47 → PCU 17:30 → MHTC 03-22 16:20
DX: E11.51 Type 2 diabetes mellitus with diabetic peripheral angiopathy without gangrene (principal); E11.40 Type 2 diabetes mellitus with diabetic neuropathy, unspecified; E11.69 Type 2 diabetes mellitus with other specified complication; M86.9 Osteomyelitis, unspecified; G47.33 Obstructive sleep apnea (adult) (pediatric); I10 Essential (primary) hypertension; I25.10 Atherosclerotic heart disease of native coronary artery without angina pectoris; E03.9 Hypothyroidism, unspecified; Z95.1 Presence of aortocoronary bypass graft; Z99.89 Dependence on other enabling machines and devices; Z91.19 Patient's noncompliance with other medical treatment and regimen; Z79.82 Long term (current) use of aspirin; Z79.4 Long term (current) use of insulin; Z79.02 Long term (current) use of antithrombotics/antiplatelets; Z79.899 Other long term (current) drug therapy
CPT/HCPCS: 36200; 37224; 37228; 37232; 75625; 75710; 75716; 75774; 82947; 85347; 99152; 99153; A9270-GY; C1725; C1760; C1769; C1887; C1894; C2623; J1644; J2250; J3010; J7030; J7042; Q9967

== ENCOUNTER 2019-04-01 21:56 | Emergency (ER) | payer OTHER ==
[~2019-04-01] VITALS: Ht 170.2 cm; Wt 73.0 kg
[~2019-04-01 21:56] MED LIST changes: +GABA100 PO; +MELA3 PO; +SENN187 PO
[2019-04-02] MEDS ORDERED: CEPH500 PO (00:13)
[2019-04-02] MEDS ORDERED: Bactrim Ds Tab1 EACH PO (00:13)
[2019-04-05] MEDS ORDERED: ANTIBIOTIC PO (14:18)
== END 2019-04-02 00:45 | disposition home or self-care (01) ==
LOC: ER 21:56
DX: T87.81 Dehiscence of amputation stump (principal); E11.9 Type 2 diabetes mellitus without complications; I10 Essential (primary) hypertension; E03.9 Hypothyroidism, unspecified; Z79.899 Other long term (current) drug therapy
CPT/HCPCS: 12034; 96374-59; 99283-25; A9270-GY; J1170

== ENCOUNTER 2019-04-06 12:58 | Inpatient (IN) | payer OTHER ==
[~2019-04-06] VITALS: Ht 170.2 cm; Wt 71.5 kg
[~2019-04-06 12:58] MED LIST changes: +ANTIBIOTIC PO; +Bactrim Ds Tab1 EACH PO; +CEPH500 PO
--- NOTE | 2019-04-07 13:02 | NUR ---
History, Chart, Medications and Allergies reviewed before start of procedure. Lungs clear T/O to Auscultation. Patient confirms NPO status and agrees with scheduled surgery. Patient reports completing Chlorhexadine shower X2 prior to admission to hospital. Pre-Op teaching done. Pt verbalizes understanding.
--- NOTE | 2019-04-07 16:24 | NUR ---
04/07/19 1624 Reina Davis ANTIBIOTICS HELD UNTIL AFTER WOUND CULTURES TAKEN
--- NOTE | 2019-04-07 17:56 | NUR ---
SHIFT SUMMARY PT IS S/P I&D TO R STUMP. PT IS A/O X4, FAMILY IS AT BEDSIDE. REPORTS PAIN MANAGED WITH PAIN MEDS PER ORDERS. TOLERATING PO INTAKE. WOUND VAC IN PLACE. R STUMP IS ELEVATED. ASSISTED WITH ADLS PRN.
[2019-04-08 03:45] LABS: BASOPHILS ABSOLUTE AUTO 0.01 K/mm3 (0.00-0.23); BASOPHILS PERCENT AUTO 0 % (0-2); EOSINOPHILS PERCENT AUTO 0 % (0-6); Hematocrit 27.5 % (37.0-53.0); Hemoglobin 8.9 g/dL (13.5-17.5); IMMATURE GRAN ABSOLUTE AUTO 0.04 K/mm3 (0.00-0.10); IMMATURE GRAN PERCENT AUTO 0 % (0-1); LYMPHOCYTES ABSOLUTE AUTO 0.77 K/mm3 (0.84-5.20); LYMPHOCYTES PERCENT AUTO 8 % (21-46); MONOCYTES PERCENT AUTO 2 % (4-13); Mean Corpuscular HGB 28.9 pg (26.0-34.0); Mean Corpuscular HGB Conc 32.4 g/dL (31.5-36.5); Mean Corpuscular Volume 89 fL (80-100); Mean Platelet Volume 8.8 fL (9.1-12.4); NEUTROPHILS ABSOLUTE AUTO 8.56 K/mm3 (1.96-9.15); NEUTROPHILS PERCENT AUTO 89 % (41-73); Platelet Count 265 K/mm3 (150-400); RDW Coefficient Variation 14.1 % (11.7-14.2); Red Blood Cell Count 3.08 M/mm3 (4.30-5.90); White Blood Cell Count 9.58 K/mm3 (4.00-11.30)
[2019-04-08 04:04] LABS: Anion Gap 8 mmol/L (6-16); Blood Urea Nitrogen 20 mg/dL (8-24); Bun/Creatinine Ratio 27.4 (12.0-20.0); CO2, Blood 26 mmol/L (21-32); Calcium, Blood 8.6 mg/dL (8.5-10.1); Chloride, Blood 97 mmol/L (98-108); Creatinine, Blood 0.73 mg/dL (0.60-1.20); Glomerular Filtration Rate >60 (60-); Glucose, Blood 297 mg/dL (70-99); Potassium, Blood 4.9 mmol/L (3.5-5.5); Sodium, Blood 131 mmol/L (136-145)
--- NOTE | 2019-04-08 05:42 | NUR ---
SHIFT KARINE: PT POD #1 FOR REVISION OF R BKA. STUMP ELEVATED ON PILLOW. DESIREE WOUND VAC INTACT WITH FOAM COMPRESSED. DRAINING SS FLUID. ABX INFUSING PER EMAR. PAIN MANAGED WITH OXY, TYLENOL AND IV FENTANYL. VOIDING IN URINAL. OUT OF BED TO BSC WITH 1 MINIMAL ASSIST AND FWW. HR LOW T/O SHIFT AT 50BPM. ALL OTHER VS WNL. PT DENIES CHEST PAIN.
--- NOTE | 2019-04-08 09:42 | NUR ---
NOTIFIED DR. DORADO OF PT HR IN THE 40-50s. VERBAL ORDER TO HOLD AMIODORONE, BUT GIVE ALL OTHER MEDICATIONS. CONT BIOX IN PLACE. WILL CONT TO MONITOR CARDIAC STATUS.
[2019-04-08 13:49] LABS: Vancomycin, Trough 7.3 ug/mL (5.0-10.0)
--- NOTE | 2019-04-08 16:16 | NUR ---
SHIFT SUMMARY NO ACUTE CHANGES THIS SHIFT. CONT TO MEDICATE FOR PAIN PER ORDERS. PT UP WITH MINIMAL ASSISTANCE. WOUND VAC TO R STUMP REMAINS COMPRESSED AND INTACT WITH SS DRAINAGE. IVF + ABX PER ORDERS. CONT BIOX IN PLACE AND PT HAS BEEN BRADYCARDIC IN THE 40-50S. M.D. AWARE. PT USES CALL LIGHT APPROPRIATELY.
[2019-04-09 04:01] LABS: Hematocrit 26.6 % (37.0-53.0); Hemoglobin 8.6 g/dL (13.5-17.5); Mean Corpuscular HGB Conc 32.3 g/dL (31.5-36.5); Mean Corpuscular Volume 90 fL (80-100); Mean Platelet Volume 8.8 fL (9.1-12.4); Platelet Count 275 K/mm3 (150-400); RDW Coefficient Variation 14.1 % (11.7-14.2); RDW Standard Deviation 46.2 fL (35.1-46.3); Red Blood Cell Count 2.97 M/mm3 (4.30-5.90); White Blood Cell Count 9.64 K/mm3 (4.00-11.30)
--- NOTE | 2019-04-09 04:15 | NUR ---
SHIFT SUMMARY: PT S/P REVISION TO R BKA. PAIN MANAGED WITH ORAL PAIN MEDICATION PER EMAR. PT COMPLAINING OF OCCASIONAL MUSCLE SPASMS. RIGHT STUMP ELEVATED ON PILLOW. EXTREMITY WARM TO TOUCH AND SOFT. WOUND VAC DRAINING SS FLUID. ABX INFUSING PER EMAR. PT VOIDING IN URINAL. HR REMAINS LOW FROM 45-50. PT ASYMPTOMATIC.
[2019-04-09 04:26] LABS: Percent Saturation 26.9 % (20.0-50.0)
[2019-04-09 13:58] LABS: Vancomycin, Trough 10.1 ug/mL (5.0-10.0)
--- NOTE | 2019-04-09 18:23 | NUR ---
SHIFT SUMMARY NO ACUTE CHANGES THROUGH THE DAY. PT REMAINS A&O X4. WOUND VAC REMAINS INTACT, FOAM COMPRESSED, DRAINING MODERATE AMOUNTS OF SS FLUIDS. STUMP REMAINS ELEVATED ON PILLOWS WHILE IN BED. PAIN MEDICATED PER EMAR WITH PO ROXYCODONE. 1 ASSIST TO BSC. PT HAD A LG BM TODAY. TOLERATING PO INTAKE. ABX & IV FLUIDS INFUSED PER EMAR. CALL LIGHT IN REACH, [facility]
[2019-04-10 05:43] LABS: Hematocrit 27.6 % (37.0-53.0); Hemoglobin 8.9 g/dL (13.5-17.5); Mean Corpuscular HGB 28.8 pg (26.0-34.0); Mean Corpuscular HGB Conc 32.2 g/dL (31.5-36.5); Mean Corpuscular Volume 89 fL (80-100); Mean Platelet Volume 8.9 fL (9.1-12.4); Platelet Count 303 K/mm3 (150-400); RDW Coefficient Variation 14.3 % (11.7-14.2); RDW Standard Deviation 46.3 fL (35.1-46.3); Red Blood Cell Count 3.09 M/mm3 (4.30-5.90); White Blood Cell Count 8.62 K/mm3 (4.00-11.30)
[2019-04-10 06:08] LABS: Vancomycin, Trough 21.2 ug/mL (5.0-10.0)
--- NOTE | 2019-04-10 06:38 | NUR ---
SHIFT SUMMARY: NO SIGNIFICANT CHANGES OVER NIGHT. PAIN MANAGED WITH 5MG OXY Q6 PER EMAR. R STUMP ELEVATED ON PILLOWS. PT VOIDING ADEQUATE AMOUNT OF URINE IN URINAL. TRANSFERING FROM BED TO BSC WITH MINIMAL ASSIST AND BSC. PT CONCERNED ABOUT NOT HAVING A BM THIS SHIFT, HOWEVER HAD A LARGE ONE YESTERDAY. ABX INFUSING THROUGH NEW POWERGLIDE TO LEFT UPPER ARM.
--- NOTE | 2019-04-10 16:25 | NUR ---
SUMMARY: POD3 REVISION OF R BKA. NO ACUTE CHANGE TODAY. PT VSS, A/O. PAIN SEEMS TO BE MANAGED WELL, ENCOURAGING ELEVATION. CSM INTACT TO R LEG. DR. MONTEMAYOR CHANGED WOUND VAC DRESSING. DR. DORADO AND DR. LINDO DISCUSSED DISCHARGE. PLAN IS FOR SNF TOMORROW, TO DC WITH IV ANTIBIOTIC/POWERGLIDE WELL WOUND VAC. PT IS AWARE. PT/OT ORDERED FOR EVAL AND TREAT. NO ACUTE CONCERNS AT THIS TIME.
--- NOTE | 2019-04-10 21:34 | NUR ---
1925 PT RESTING COMFORTABLY; WOUND VAC AT 125MM/HCG WITHOUT DRAINAGE NOTED; PT DENIES NEED FOR PAIN MEDS AT THIS TIME; RIGHT STUMP DRESSING DRY AND INTACT; ALERT AND ORIENTED X 4.
--- NOTE | 2019-04-11 06:21 | NUR ---
SHIFT SUMMARY: 79 Y/O MALE RESTED COMFORTABLY ALL SHIFT; C/O RIGHT STUMP PAIN RATED 8/10 WITH OXYCODONE 5MG PO X 1 GIVEN TWICE WITH RELIEF FELT; RIGHT STUMP WOUND VAC DRESSING INTACT WITH LIMB ELEVATED ON 1 PILLOW; ALERT AND ORIENTED X 4; ABLE TO FOLLOW ALL SIMPLE VERBAL COMMANDS; VOIDING CLEAR YELLOW FLUID PER URINAL; BED LOW POSITION WITH CALL LIGHT AT SIDE.
--- NOTE | 2019-04-11 15:03 | NUR ---
DISCHARGE: TRANSPORT FOR [facility] HERE AT 1412 FOR PT. TRANSPORT GIVEN DC PACKET. PT LEFT UNIT WITH WOUND VAC AND POWERGLIDE FOR CONTINUED ANTIBIOTICS. PT LEFT IN WHEELCHAIR WITH TRANSPORT AT ABOUT 1435. REPORT GIVEN TO JOON PEDROZA AT [facility] AT 1500.
== END 2019-04-11 14:45 | DRG 475 ==
LOC: SURS 04-07 11:56 → PRE IP 04-07 13:30 → SURS 04-07 16:52
PROVIDERS: Orthopaedic Surgery; Pharmacist; ADMIT Internal Medicine
PROC: 0Y6H0Z3 Detachment at Right Lower Leg, Low, Open Approach (ICD-10-PCS; principal; 2019-04-07 12:45)
DX: T87.81 Dehiscence of amputation stump (principal); M86.9 Osteomyelitis, unspecified; T87.41 Infection of amputation stump, right upper extremity; Z89.511 Acquired absence of right leg below knee; E11.51 Type 2 diabetes mellitus with diabetic peripheral angiopathy without gangrene; I25.10 Atherosclerotic heart disease of native coronary artery without angina pectoris; E03.9 Hypothyroidism, unspecified; I10 Essential (primary) hypertension; J45.20 Mild intermittent asthma, uncomplicated; E11.42 Type 2 diabetes mellitus with diabetic polyneuropathy; G47.33 Obstructive sleep apnea (adult) (pediatric); Z95.1 Presence of aortocoronary bypass graft; Z90.49 Acquired absence of other specified parts of digestive tract; D63.8 Anemia in other chronic diseases classified elsewhere; K59.00 Constipation, unspecified
CPT/HCPCS: 36415; 73590; 80048; 80202; 82565; 82728; 82947; 83540; 83550; 85025; 85027; 85651; 86140; 86141; 87070; 87071; 87075; 87077; 87147; 87186; 87205; 94762; 97116; 97161; 97165; 97530; 97535; A9270-GY; C1751; J1100; J2185; J2405; J2543; J2704; J3010; J3370; J7030

== ENCOUNTER 2019-07-19 12:15 | Day surgery (SDC) | payer OTHER ==
[~2019-07-19] VITALS: Ht 170.2 cm; Wt 73.8 kg
[2019-07-19] MEDS ORDERED: ELIQUIS5 MG PO (12:51)
[2019-07-19] MEDS ORDERED: CLOP75 PO (17:22)
--- NOTE | 2019-07-19 21:07 | NUR ---
Patient is fully awake and aware. lt groin site with CHG tegaderm over arterial site. No evidence of bleeding, no hematoma, no pain with light palpation, able to move extremeties. Lt leg and foot with pink/haroon coloring, warm to the toes, pulses present, general slight edema. patient was discharged at 2105 without issue. discharge instructions understood and signed. plavix script called into pharmacy message machine. patient's son picked up patient. patient discharged with all belongins and instructions.
== END 2019-07-19 21:00 | disposition home or self-care (01) ==
LOC: MHTC 12:15 → ICUE 17:34 → MHTC 21:00
DX: E11.51 Type 2 diabetes mellitus with diabetic peripheral angiopathy without gangrene (principal); I70.201 Unspecified atherosclerosis of native arteries of extremities, right leg; I25.10 Atherosclerotic heart disease of native coronary artery without angina pectoris; I10 Essential (primary) hypertension; G47.30 Sleep apnea, unspecified; Z79.82 Long term (current) use of aspirin; Z79.4 Long term (current) use of insulin; Z95.1 Presence of aortocoronary bypass graft; Z79.899 Other long term (current) drug therapy
CPT/HCPCS: 37224; 37228; 37232; 75710; 75774; 82947; 85347; 99152; 99153; C1725; C1769; C1887; C1894; C2623; J1644; J2250; J3010; J7030; Q9967

== ENCOUNTER 2019-08-24 06:14 | Day surgery (SDC) | payer OTHER ==
[~2019-08-24] VITALS: Ht 170.2 cm; Wt 80.0 kg
[~2019-08-24 06:14] MED LIST changes: +CLOTRIMAZOLE 1% TOP; +MULTIVITAMIN PO
--- NOTE | 2019-08-24 13:04 | NUR ---
PT UP TO BATHROOM PER W/C. RIGHT FEM SITE STABLE. PT SITTING IN W/C EATING LUNCH AT THIS TIME.
--- NOTE | 2019-08-24 13:39 | NUR ---
DISCHARGE GONE OVER WITH PT, PT VERBALIZES UNDERSTANDING. INSTRUCTIONS GONE OVER ON WHAT TO DO IF BLEEDING SHOULD OCCUR. SALINE LOCK OUT WITH CATHETER INTACT. RIGHT FEM SITE STABLE. PT TO PRIVATE VEHICLE PER W/C WITH ONE STAFF.
== END 2019-08-24 13:30 | disposition home or self-care (01) ==
LOC: MHTC 06:14
DX: I70.212 Atherosclerosis of native arteries of extremities with intermittent claudication, left leg (principal); E11.51 Type 2 diabetes mellitus with diabetic peripheral angiopathy without gangrene; E11.40 Type 2 diabetes mellitus with diabetic neuropathy, unspecified; E11.621 Type 2 diabetes mellitus with foot ulcer; Z79.4 Long term (current) use of insulin; I10 Essential (primary) hypertension; G47.33 Obstructive sleep apnea (adult) (pediatric); Z79.82 Long term (current) use of aspirin; Z79.02 Long term (current) use of antithrombotics/antiplatelets; Z79.899 Other long term (current) drug therapy; Z79.01 Long term (current) use of anticoagulants
CPT/HCPCS: 37228; 37232; 75710; 75774; 76937; 82947; 85347; 99152; 99153; C1725; C1760; C1769; C1887; C1894; J1644; J2250; J3010; J7030; Q9967

== ENCOUNTER 2020-02-29 07:16 | Day surgery (SDC) | payer OTHER ==
[2020-02-29] MEDS ORDERED: CENTRUM SILVER1 EAC2 (07:50)
[2020-02-29] MEDS ORDERED: OMEP20ER (07:50)
--- NOTE | 2020-02-29 09:27 | NUR ---
02/29/20 [address] GALAN ORDER, PT IS TO GET ALL IV FLUIDS BEFORE DISCHARGE. PT RECEIVED 500CC OF LR IN STEP DOWN
== END 2020-02-29 09:43 | disposition home or self-care (01) ==
LOC: ORSCSDS 07:16
PROVIDERS: Surgery
PROC: 0DJD8ZZ Inspection of Lower Intestinal Tract, Via Natural or Artificial Opening Endoscopic (ICD-10-PCS; principal; 2020-02-29 08:45)
DX: Z12.11 Encounter for screening for malignant neoplasm of colon (principal); Z85.038 Personal history of other malignant neoplasm of large intestine; I10 Essential (primary) hypertension; E11.9 Type 2 diabetes mellitus without complications; K21.9 Gastro-esophageal reflux disease without esophagitis; G47.33 Obstructive sleep apnea (adult) (pediatric); I48.91 Unspecified atrial fibrillation; E03.9 Hypothyroidism, unspecified; Z79.01 Long term (current) use of anticoagulants; Z79.82 Long term (current) use of aspirin; Z79.899 Other long term (current) drug therapy
CPT/HCPCS: 82947; J0330; J0461; J2405; J2704; J7120

== ENCOUNTER 2020-04-28 12:14 | Emergency (ER) | payer OTHER ==
[~2020-04-28] VITALS: Ht 170.2 cm; Wt 81.7 kg
[~2020-04-28 12:14] MED LIST changes: +CENTRUM SILVER1 EAC2; +OMEP20ER
== END 2020-04-28 14:20 | disposition home or self-care (01) ==
LOC: ER 12:14
DX: R04.0 Epistaxis (principal); E03.9 Hypothyroidism, unspecified; J45.909 Unspecified asthma, uncomplicated; I25.10 Atherosclerotic heart disease of native coronary artery without angina pectoris; I10 Essential (primary) hypertension; I48.0 Paroxysmal atrial fibrillation; E11.42 Type 2 diabetes mellitus with diabetic polyneuropathy; E78.5 Hyperlipidemia, unspecified; Z79.899 Other long term (current) drug therapy; Z79.4 Long term (current) use of insulin; Z79.01 Long term (current) use of anticoagulants; Z79.02 Long term (current) use of antithrombotics/antiplatelets; Z79.82 Long term (current) use of aspirin; Z95.1 Presence of aortocoronary bypass graft
CPT/HCPCS: 30901; 99283-25; A9270

== ENCOUNTER → 2021-06-06 | Outpatient (CLI) | payer OTHER ==
[2021-06-06 17:02] LABS: Adenovirus F 40/41 Not Detected (NOT DETECT); Astrovirus Not Detected (NOT DETECT); Campylobacter Sp Not Detected (NOT DETECT); Cryptosporidium Not Detected (NOT DETECT); Cyclospora Cayetanensis Not Detected (NOT DETECT); E. Coli O157 Not Detected (NOT DETECT); Entamoeba Histolytica Not Detected (NOT DETECT); Enteroaggregative E. coli-EAEC Not Detected (NOT DETECT); Enteropathogenic E. coli-EPEC Not Detected (NOT DETECT); Enterotoxigenic E. coli-ETEC Not Detected (NOT DETECT); Giardia Lamblia Not Detected (NOT DETECT); Norovirus GI/GII Not Detected (NOT DETECT); Plesiomonas Shigelloides Not Detected (NOT DETECT); Rotavirus A Not Detected (NOT DETECT); Salmonella Sp Not Detected (NOT DETECT); Sapovirus Not Detected (NOT DETECT); Shiga Toxin-prod E. coli-STEC Not Detected (NOT DETECT); Shigella/Enteroin E. coli-EIEC Not Detected (NOT DETECT); Vibrio Cholerae Not Detected (NOT DETECT); Vibrio Sp Not Detected (NOT DETECT); Yersinia Enterocolitica Not Detected (NOT DETECT)
== END | disposition home or self-care (01) ==
LOC: LAB SHORT 14:18
PROVIDERS: Family Medicine
DX: R19.7 Diarrhea, unspecified (principal)
CPT/HCPCS: 0097U

== ENCOUNTER 2021-08-04 12:17 | Inpatient (IN) | payer OTHER ==
[~2021-08-04] VITALS: Ht 170.2 cm; Wt 73.5 kg
[~2021-08-04 12:17] MED LIST changes: +EUTHYROX50 MCG PO; -Glucophage1000 MG PO; -LEVSOD50 PO
[2021-08-04 13:21] LABS: BASOPHILS ABSOLUTE AUTO 0.06 K/mm3 (0.00-0.23); BASOPHILS PERCENT AUTO 1 % (0-2); EOSINOPHILS ABSOLUTE AUTO 0.13 K/mm3 (0.00-0.68); EOSINOPHILS PERCENT AUTO 2 % (0-6); Hematocrit 43.3 % (37.0-53.0); Hemoglobin 14.8 g/dL (13.5-17.5); IMMATURE GRAN ABSOLUTE AUTO 0.02 K/mm3 (0.00-0.10); IMMATURE GRAN PERCENT AUTO 0 % (0-1); LYMPHOCYTES PERCENT AUTO 23 % (21-46); MONOCYTES ABSOLUTE AUTO 0.54 K/mm3 (0.16-1.47); MONOCYTES PERCENT AUTO 8 % (4-13); Mean Corpuscular HGB 31.2 pg (26.0-34.0); Mean Corpuscular HGB Conc 34.2 g/dL (31.5-36.5); Mean Corpuscular Volume 91 fL (80-100); Mean Platelet Volume 9.4 fL (9.1-12.4); NEUTROPHILS ABSOLUTE AUTO 4.76 K/mm3 (1.96-9.15); NEUTROPHILS PERCENT AUTO 67 % (41-73); Platelet Count 210 K/mm3 (150-400); RDW Coefficient Variation 12.1 % (11.7-14.2); RDW Standard Deviation 40.7 fL (35.1-46.3); Red Blood Cell Count 4.75 M/mm3 (4.30-5.90); White Blood Cell Count 7.11 K/mm3 (4.00-11.30)
[2021-08-04 14:01] LABS: Alanine Aminotransfer (ALT/SGP 33 U/L (12-78); Albumin, Blood 3.6 g/dL (3.4-5.0); Alk Phos 82 U/L (50-136); Anion Gap 5 mmol/L (6-16); Aspartate Aminotrans (AST/SGOT 15 U/L (12-37); Bilirubin, Total 0.6 mg/dL (0.1-1.0); Blood Urea Nitrogen 22 mg/dL (8-24); Bun/Creatinine Ratio 25.6 (12.0-20.0); CO2, Blood 30 mmol/L (21-32); Calcium, Blood 9.5 mg/dL (8.5-10.1); Chloride, Blood 101 mmol/L (98-108); Creatinine, Blood 0.86 mg/dL (0.60-1.20); Globulin, Blood 3.7 g/dL (2.2-4.0); Glomerular Filtration Rate >60 (60-); Glucose, Blood 186 mg/dL (70-99); Potassium, Blood 3.8 mmol/L (3.5-5.5); Sodium, Blood 136 mmol/L (136-145); Total Protein, Blood 7.3 g/dL (6.4-8.2)
[2021-08-04] MEDS ORDERED: CREON DR 12,001 EACH PO (16:54)
[2021-08-04] MEDS ORDERED: TAMS.4ER PO (17:16)
--- NOTE | 2021-08-04 18:55 | NUR ---
END OF SHIFT: PATIENT WAS AN ADMISSION FORM ED, MED REC COMPLETE, PATIENT WSA SITTING IN THE LOW 100'S ON ARRIVAL TO PCU, HR IN THE 130'S. AMIO AT 33, PATIENT DENIES CHEST PAIN OR PRESSURE, SOB, DIZZINESS. PATIENT NORMALLY TAKES AMIODARONE ORALLY AT HOME. PATIENT IN SINUS TACH AT THIS TIME. 120-130'S. ONLY 1 IV ON ARRIVAL, LR NOT COMPATABLE WITH AMIODARONE IV, BOO DUPREE SET UP AN 18 IN THE LEFT UPPER ARM. OF NOTE WHEN CHECKING A MARI OF BLOOD PRESSURE AROUND 1800 PATIENT WAS 86/68 (75), SPOKE TO DR. CASTILLO AND ORDER FOR A OT OF OPEN WIDE 1L NS TO BE GIVEN TO HELP MAINTAIN PRESSURE. PATIENT IS AND HAS BEEN ASYMPTOMATIC. PATIENT ENDORSES DIARRHEA AND STOOL SAMPLE IS STILL NEEDED, NO BM IN THE LAST 2 DAYS. PATIENT HAS NO CONCERNS OR QUESTIONS AT THIS TIME. DR CASTILLO ADMITTING DOCTOR.
--- NOTE | 2021-08-04 22:32 | NUR ---
2129 CHANGED AMIO GTT TO 0.5MG FROM 1.0MG, VSS BP 120/80, HR 110
--- NOTE | 2021-08-05 13:58 | NUR ---
Patient is sitting on EOB and eating lunch. Patient tells me that he is doing well and hopes to d/c soon. Patient talks about his Yarsanism ori and how improtant to him it is. I ask if he would like the Eucharistic rehab aid to visit and he says that he would like that. He asks if I could pray for him, which I gladly do. Patient is very appreciative of the visit.
[2021-08-05 14:37] LABS: Adenovirus F 40/41 Not Detected (NOT DETECT); Astrovirus Not Detected (NOT DETECT); Campylobacter Sp Not Detected (NOT DETECT); Cryptosporidium Not Detected (NOT DETECT); Cyclospora Cayetanensis Not Detected (NOT DETECT); E. Coli O157 Not Detected (NOT DETECT); Entamoeba Histolytica Not Detected (NOT DETECT); Enteroaggregative E. coli-EAEC Not Detected (NOT DETECT); Enteropathogenic E. coli-EPEC Not Detected (NOT DETECT); Enterotoxigenic E. coli-ETEC Not Detected (NOT DETECT); Giardia Lamblia Not Detected (NOT DETECT); Norovirus GI/GII Not Detected (NOT DETECT); Plesiomonas Shigelloides Not Detected (NOT DETECT); Rotavirus A Not Detected (NOT DETECT); Salmonella Sp Not Detected (NOT DETECT); Sapovirus Not Detected (NOT DETECT); Shiga Toxin-prod E. coli-STEC Not Detected (NOT DETECT); Shigella/Enteroin E. coli-EIEC Not Detected (NOT DETECT); Vibrio Cholerae Not Detected (NOT DETECT); Vibrio Sp Not Detected (NOT DETECT); Yersinia Enterocolitica Not Detected (NOT DETECT)
--- NOTE | 2021-08-05 17:52 | NUR ---
PT SUMMARY: NO ACUTE CHANGE FOR THE SHIFT. DENIES ANY CHEST PAIN/PRESSURE. VITALS HRR AFLUTTER 100'S, BP SYSTOLIC 110'S, SATS ABOVE 95% ON RA, AFEBRILE. AMIODARONE GTT STOPPED AND DC'D AT 1500, PT TO RESTART ON HOME DOSE AMIODARONE 200MG STARTING TOMORROW 08/06, PT ALSO STARTED ON LOW DOSE METOPROLOL XL 12.5MG. PT'S HR SUSTAINED ON THE 100'S, ECHO DONE TODAY EF SHOWED 40-45%. PT'S DIET RESUMED, PT HAS BEEN EATING AND DRINKING WITH NO ISSUES IV FLUID DISCONTINUED. TO ALSO START PT ON XARELTO TOMORROW. PT ABLE TO STAND AND PIVOT FOR TRANSFERS ON LEFT LEG, CAN MOVE SELF INDEPENDENTLY IN BED. DAUGHTER CAME IN TO VISIT. NO OTHER ISSUES REPORTED, ABLE TO MAKE NEEDS KNOWN, WILL REPORT TO ONCOMING SHIFT
--- NOTE | 2021-08-06 06:15 | NUR ---
SHIFT SUMMARY ASSUMED CARE OF PT AT 1900. PT IS A/OX4. TELE SHOWED AFLUTTER, LUNG SOUNDS CLEAR. PT WAS CONTINENT TO BSC WITH SET UP ASSISTANCE. PT HAD NO NEW COMPLAINTS. PT HR REMAINED BETWEEN 100-115 BPM T/O THE NIGHT.
[2021-08-06] MEDS ORDERED: METO25ER PO (09:34)
[2021-08-06] MEDS ORDERED: XARELTO20 MG PO (09:35)
--- NOTE | 2021-08-06 10:36 | NUR ---
PT DISCHARGED TO HOME WIHT DISCHARGE ORDERS. PT'S HRR REMAINED AFLUTTER STAYED WITHIN 110'S PER RATE, BP SYSTOLIC 110'S, NO /SOB ON RA SATS ABOVE 95%, AFEBRILE. PT STARTED ON XARELTO TODAY METOPROLOLXL INCREASED TO 25MG, NO OTHER ISSUES REPORTED PRIOR TO DISCHARGE. PT AMBULATED WITH R LEG PROSTHESIS ON SROUND THE UNIT WITH THE CANE ASSSITIVE DEVICE PT TOLERATED WELL. PT TO DRIVE HIMSELF HOME, PRESCRIPTION CALLED INTO [facility]. ALL DISCHARGE INSTRUCTIONS AND NEW MEDICAITONS DISCLOSED WITH THE PT EDUCATION PAPERS ENCLOSED IN THE DISCHARGE PACKET WELL.
== END 2021-08-06 10:20 | disposition home or self-care (01) | DRG 309 ==
LOC: ER 12:17 → PCU 15:34
PROVIDERS: Student in an Organized Health Care Education/Training Program; ADMIT Internal Medicine
DX: I48.0 Paroxysmal atrial fibrillation (principal); I50.42 Chronic combined systolic (congestive) and diastolic (congestive) heart failure; I48.92 Unspecified atrial flutter; R19.7 Diarrhea, unspecified; I95.9 Hypotension, unspecified; I11.0 Hypertensive heart disease with heart failure; G47.33 Obstructive sleep apnea (adult) (pediatric); E78.00 Pure hypercholesterolemia, unspecified; J45.20 Mild intermittent asthma, uncomplicated; E03.9 Hypothyroidism, unspecified; E11.51 Type 2 diabetes mellitus with diabetic peripheral angiopathy without gangrene; I25.10 Atherosclerotic heart disease of native coronary artery without angina pectoris; I73.9 Peripheral vascular disease, unspecified; E11.42 Type 2 diabetes mellitus with diabetic polyneuropathy; Z79.4 Long term (current) use of insulin; Z79.899 Other long term (current) drug therapy; Z95.5 Presence of coronary angioplasty implant and graft; Z90.49 Acquired absence of other specified parts of digestive tract; Z98.890 Other specified postprocedural states; Z85.038 Personal history of other malignant neoplasm of large intestine; Z89.511 Acquired absence of right leg below knee; Z95.1 Presence of aortocoronary bypass graft
CPT/HCPCS: 71045; 80053; 82947; 83880; 84443; 84484; 85025; 87507; 93005; 93010; 93306; 96365; 99285-25; A9270; G0378; J0282; J1815; J7030; J7060; J7120

== ENCOUNTER 2021-11-04 17:35 | Emergency (ER) | payer OTHER ==
[~2021-11-04] VITALS: Ht 170.2 cm; Wt 81.7 kg
[~2021-11-04 17:35] MED LIST changes: +CREON DR 12,001 EACH PO; +ELIQUIS5 M2 PO; +FURO20 PO; +METO25ER PO; +POTA10T PO; +TAMS.4ER PO; +WARF5 PO; +XARELTO15 MG PO; +XARELTO20 MG PO
== END 2021-11-04 21:14 | disposition home or self-care (01) ==
LOC: ER 17:35
DX: R04.0 Epistaxis (principal); I10 Essential (primary) hypertension; E11.9 Type 2 diabetes mellitus without complications; Z79.01 Long term (current) use of anticoagulants; I48.0 Paroxysmal atrial fibrillation
CPT/HCPCS: A9270

== ENCOUNTER 2022-09-04 05:39 | Day surgery (SDC) | payer OTHER ==
[~2022-09-04] VITALS: Ht 170.2 cm; Wt 82.0 kg
[2022-09-04 06:49] VITALS: BP 149/71
[2022-09-04 07:17] VITALS: BP 106/66
[2022-09-04 07:20] VITALS: BP 115/66
[2022-09-04 07:25] VITALS: BP 115/65
[2022-09-04 07:32] VITALS: BP 108/68
[2022-09-04 07:37] VITALS: BP 115/68
--- NOTE | 2022-09-04 08:18 | NUR ---
PT AND DAUGHTER VERBALIZED UNDERSTANDING OF WRITTEN AND VERBAL D/C INST. SR/SB 55-65BPM ON D/C. IV REMOVED. PT TAKEN OUT OF THE HRT CENTER VIA W/C.
== END 2022-09-04 22:50 | disposition home or self-care (01) ==
LOC: MHTC 05:39
DX: I48.0 Paroxysmal atrial fibrillation (principal); I25.10 Atherosclerotic heart disease of native coronary artery without angina pectoris; E11.9 Type 2 diabetes mellitus without complications
CPT/HCPCS: 82947; 92960; 93005; 93010; J2704; J7030

== ENCOUNTER 2022-10-20 11:07 | Emergency (ER) | payer OTHER ==
[~2022-10-20] VITALS: Ht 170.2 cm; Wt 81.7 kg
[~2022-10-20 11:07] MED LIST changes: +GLUCOPHAGE1000 M1 PO
[2022-10-20] MEDS ORDERED: FARXIGA10 MG PO (11:38)
[2022-10-20] MEDS ORDERED: AMLO10 PO (11:38)
[2022-10-20] MEDS ORDERED: CLIN150 PO (11:39)
[2022-10-20] MEDS ORDERED: CLOP75 PO (11:39)
[2022-10-20] MEDS ORDERED: ZENPEP DR 40,01 EACH PO (11:40)
[2022-10-20 12:11] LABS: BASOPHILS ABSOLUTE AUTO 0.03 K/mm3 (0.00-0.23); BASOPHILS PERCENT AUTO 1 % (0-2); EOSINOPHILS PERCENT AUTO 2 % (0-6); Hematocrit 37.9 % (37.0-53.0); Hemoglobin 12.7 g/dL (13.5-17.5); IMMATURE GRAN ABSOLUTE AUTO 0.03 K/mm3 (0.00-0.10); IMMATURE GRAN PERCENT AUTO 1 % (0-1); LYMPHOCYTES ABSOLUTE AUTO 0.65 K/mm3 (0.84-5.20); LYMPHOCYTES PERCENT AUTO 10 % (21-46); MONOCYTES ABSOLUTE AUTO 0.51 K/mm3 (0.16-1.47); MONOCYTES PERCENT AUTO 8 % (4-13); Mean Corpuscular HGB 30.5 pg (26.0-34.0); Mean Corpuscular HGB Conc 33.5 g/dL (31.5-36.5); Mean Corpuscular Volume 91 fL (80-100); Mean Platelet Volume 9.9 fL (9.1-12.4); NEUTROPHILS ABSOLUTE AUTO 5.24 K/mm3 (1.96-9.15); NEUTROPHILS PERCENT AUTO 80 % (41-73); Platelet Count 200 K/mm3 (150-400); RDW Coefficient Variation 14.1 % (11.7-14.2); RDW Standard Deviation 47.3 fL (35.1-46.3); Red Blood Cell Count 4.17 M/mm3 (4.30-5.90); White Blood Cell Count 6.56 K/mm3 (4.00-11.30)
[2022-10-20 12:39] LABS: Albumin, Blood 3.1 g/dL (3.4-5.0); Albumin/Globulin Ratio 0.8 (0.8-1.8); Bilirubin, Total 0.7 mg/dL (0.1-1.0); Bun/Creatinine Ratio 21.1 (12.0-20.0); Calcium, Blood 8.7 mg/dL (8.5-10.1); Creatinine, Blood 0.81 mg/dL (0.60-1.20); Globulin, Blood 3.7 g/dL (2.2-4.0); Potassium, Blood 3.9 mmol/L (3.5-5.5); Total Protein, Blood 6.8 g/dL (6.4-8.2)
[2022-10-20 12:51] LABS: C-Reactive Protein, High Sens. 15.2 mg/L (0.000-3.000)
[2022-10-20] MEDS ORDERED: OXYC5 PO (14:01)
[2022-10-20 14:30] VITALS: BP 119/58
== END 2022-10-20 14:34 | disposition home or self-care (01) ==
LOC: ER 11:07
PROVIDERS: Emergency Medicine
DX: E11.622 Type 2 diabetes mellitus with other skin ulcer (principal); L97.829 Non-pressure chronic ulcer of other part of left lower leg with unspecified severity; L03.116 Cellulitis of left lower limb; J45.20 Mild intermittent asthma, uncomplicated; E11.40 Type 2 diabetes mellitus with diabetic neuropathy, unspecified; E03.9 Hypothyroidism, unspecified; I25.10 Atherosclerotic heart disease of native coronary artery without angina pectoris; G47.33 Obstructive sleep apnea (adult) (pediatric); I10 Essential (primary) hypertension; I48.0 Paroxysmal atrial fibrillation; E78.00 Pure hypercholesterolemia, unspecified; Z79.899 Other long term (current) drug therapy; Z79.4 Long term (current) use of insulin; Z79.01 Long term (current) use of anticoagulants
CPT/HCPCS: 73590; 80053; 85025; 85651; 86141; 96374; 96375; 96376; 99283-25; J1885; J2270

== ENCOUNTER 2022-10-23 20:55 | Emergency (ER) | payer OTHER ==
[~2022-10-23] VITALS: Ht 170.2 cm; Wt 82.5 kg
[~2022-10-23 20:55] MED LIST changes: +CLIN150 PO; +FARXIGA10 MG PO; +ZENPEP DR 40,01 EACH PO
[2022-10-23 21:28] VITALS: BP 133/56
[2022-10-23 21:56] LABS: BASOPHILS ABSOLUTE AUTO 0.06 K/mm3 (0.00-0.23); BASOPHILS PERCENT AUTO 1 % (0-2); EOSINOPHILS ABSOLUTE AUTO 0.19 K/mm3 (0.00-0.68); EOSINOPHILS PERCENT AUTO 3 % (0-6); Hematocrit 36.7 % (37.0-53.0); Hemoglobin 12.3 g/dL (13.5-17.5); IMMATURE GRAN ABSOLUTE AUTO 0.02 K/mm3 (0.00-0.10); IMMATURE GRAN PERCENT AUTO 0 % (0-1); LYMPHOCYTES ABSOLUTE AUTO 1.01 K/mm3 (0.84-5.20); LYMPHOCYTES PERCENT AUTO 17 % (21-46); MONOCYTES ABSOLUTE AUTO 0.61 K/mm3 (0.16-1.47); MONOCYTES PERCENT AUTO 10 % (4-13); Mean Corpuscular HGB 30.4 pg (26.0-34.0); Mean Corpuscular HGB Conc 33.5 g/dL (31.5-36.5); Mean Corpuscular Volume 91 fL (80-100); Mean Platelet Volume 9.7 fL (9.1-12.4); NEUTROPHILS ABSOLUTE AUTO 4.11 K/mm3 (1.96-9.15); NEUTROPHILS PERCENT AUTO 69 % (41-73); Platelet Count 216 K/mm3 (150-400); RDW Coefficient Variation 14.2 % (11.7-14.2); RDW Standard Deviation 47.9 fL (35.1-46.3); Red Blood Cell Count 4.04 M/mm3 (4.30-5.90)
[2022-10-23 22:06] LABS: Albumin, Blood 3.2 g/dL (3.4-5.0); Albumin/Globulin Ratio 0.8 (0.8-1.8); Bilirubin, Total 0.5 mg/dL (0.1-1.0); Bun/Creatinine Ratio 17.5 (12.0-20.0); Calcium, Blood 8.9 mg/dL (8.5-10.1); Creatinine, Blood 0.97 mg/dL (0.60-1.20); Globulin, Blood 3.8 g/dL (2.2-4.0); Potassium, Blood 4.7 mmol/L (3.5-5.5)
[2022-10-24] MEDS ORDERED: Mupirocin22 GM TOP (00:29)
== END 2022-10-24 00:28 | disposition home or self-care (01) ==
LOC: ER 20:55
PROVIDERS: Student in an Organized Health Care Education/Training Program
DX: L97.829 Non-pressure chronic ulcer of other part of left lower leg with unspecified severity (principal); Z79.4 Long term (current) use of insulin; Z79.899 Other long term (current) drug therapy; Z79.890 Hormone replacement therapy; E11.51 Type 2 diabetes mellitus with diabetic peripheral angiopathy without gangrene; E11.621 Type 2 diabetes mellitus with foot ulcer
CPT/HCPCS: 36415; 80053; 83605; 85025; 85651; 86140; 99283

== ENCOUNTER 2022-10-29 10:38 | Observation (INO) | payer OTHER ==
[~2022-10-29] VITALS: Ht 170.2 cm; Wt 73.8 kg
[~2022-10-29 10:38] MED LIST changes: +Mupirocin22 GM TOP
[2022-10-29] MEDS ORDERED: OMEP20ER PO (12:46)
[2022-10-29] MEDS ORDERED: LOSA25 PO (12:47)
[2022-10-29] MEDS ORDERED: INSULANPEN SC (12:50)
[2022-10-29 12:52] VITALS: BP 130/60
--- NOTE | 2022-10-29 12:54 | NUR ---
NURSE NOTE PATIENT ARRIVED TO MEDICAL FLOOR AT 1230. PATIENT ORIENTED TO ROOM. DR GOMEZ NOTIFIED AND SPOKE WITH PATIENT. PATIENTS DAUGHTER IS WITH PATIENT WITH MEDICATION RECORDS AND PATIENT HISTORY.
[2022-10-29] MEDS ORDERED: ELIQUIS5 M2 PO (13:07)
[2022-10-29 13:18] LABS: BASOPHILS ABSOLUTE AUTO 0.05 K/mm3 (0.00-0.23); BASOPHILS PERCENT AUTO 1 % (0-2); EOSINOPHILS ABSOLUTE AUTO 0.11 K/mm3 (0.00-0.68); EOSINOPHILS PERCENT AUTO 2 % (0-6); Hematocrit 36.9 % (37.0-53.0); Hemoglobin 12.7 g/dL (13.5-17.5); IMMATURE GRAN ABSOLUTE AUTO 0.02 K/mm3 (0.00-0.10); IMMATURE GRAN PERCENT AUTO 0 % (0-1); LYMPHOCYTES ABSOLUTE AUTO 1.03 K/mm3 (0.84-5.20); LYMPHOCYTES PERCENT AUTO 15 % (21-46); MONOCYTES PERCENT AUTO 7 % (4-13); Mean Corpuscular HGB 31.1 pg (26.0-34.0); Mean Corpuscular HGB Conc 34.4 g/dL (31.5-36.5); Mean Corpuscular Volume 90 fL (80-100); Mean Platelet Volume 9.1 fL (9.1-12.4); NEUTROPHILS ABSOLUTE AUTO 5.24 K/mm3 (1.96-9.15); NEUTROPHILS PERCENT AUTO 75 % (41-73); Platelet Count 232 K/mm3 (150-400); RDW Coefficient Variation 14.2 % (11.7-14.2); Red Blood Cell Count 4.08 M/mm3 (4.30-5.90); White Blood Cell Count 6.95 K/mm3 (4.00-11.30)
[2022-10-29 13:45] LABS: Albumin, Blood 3.1 g/dL (3.4-5.0); Albumin/Globulin Ratio 0.8 (0.8-1.8); Bilirubin, Total 0.6 mg/dL (0.1-1.0); Bun/Creatinine Ratio 15.6 (12.0-20.0); Calcium, Blood 8.4 mg/dL (8.5-10.1); Creatinine, Blood 0.83 mg/dL (0.60-1.20); Free Thyroxine 1.24 ng/dL (0.70-1.60); Globulin, Blood 3.9 g/dL (2.2-4.0); Potassium, Blood 4.2 mmol/L (3.5-5.5); Thyroid Stimulating Hormone 5.48 uIU/mL (0.360-4.800)
[2022-10-29 15:05] VITALS: BP 138/59
--- NOTE | 2022-10-29 16:54 | NUR ---
SHIFT SUMMARY PATIENT IS ALERT AND ORIENTED. PATIENT HAS HAD NO ACUTE EVENTS THIS SHIFT. VITAL SIGNS REVIEWED. PATIENT IS A RECENT DIRECT ADMIT. DR GOMEZ SAW PATIENT AND PUT IN ORDERS. PATIENT IS BEING ADMITTED FOR CELLULITIS AND LOWER LEFT LEG WOUND THAT HAS NOT HEALED. PATIENT HAS NOT COMPLAINED OF PAIN, NAUSEA, SOB OR VOMITTING THIS SHIFT. BED IN LOCKED AND LOWEST POSITION. CALL LIGHT IN PLACE. WILL MONITOR UNTIL SHIFT CHANGE.
[2022-10-29 19:52] VITALS: BP 121/63
[2022-10-30 04:12] VITALS: BP 130/58
--- NOTE | 2022-10-30 06:25 | NUR ---
PATIENT ALERT AND ORIENTED X4, COOPERATIVE WITH CARE. TELE ORDERED DUE TO BRADYCARDIA SUSTAINING IN THE 40'S. MD MADE AWARE A SECOND TIME PATIENT WAS SUSTAINING IN THE 29-38 RANGE. AM AMIODERONE HELD, BUT LASIX AND LOSARTAN STILL ON THE JUN. WILL ALERT DAY SHIFT TO HOLD UNTIL SPEAKING WITH PROVIDER. PATIENT REMAINS ASYMPTOMATIC. PER MD, TELE OK TO ALERT NURSE WHEN PATIENT DROPS IN THE LOW 30'S. WILL CONTINUE TO MONITOR.
[2022-10-30 08:08] VITALS: BP 123/53
--- NOTE | 2022-10-30 11:50 | NUR ---
DC- PT LEFT IN STABLE CONDITION WITH ALL BELONGINGS WITH DAUGHTER AFTER RN DISCUSSED ALL DC PAPERWORK/INFORMATION. RN ENSURED FIRE SAFETY EVERY HOUR WITH ROUNDS.
== END 2022-10-30 10:47 | disposition home health service (06) ==
LOC: UNDOADMOB 12:05 → MEDS 12:05
PROVIDERS: ADMIT Internal Medicine
DX: E11.621 Type 2 diabetes mellitus with foot ulcer (principal); L97.829 Non-pressure chronic ulcer of other part of left lower leg with unspecified severity; I48.0 Paroxysmal atrial fibrillation; I87.2 Venous insufficiency (chronic) (peripheral); I50.22 Chronic systolic (congestive) heart failure; E11.51 Type 2 diabetes mellitus with diabetic peripheral angiopathy without gangrene; E11.42 Type 2 diabetes mellitus with diabetic polyneuropathy; E03.9 Hypothyroidism, unspecified
CPT/HCPCS: 36415; 80053; 82947; 84439; 84443; 85025; 93005; 93010; 93926; A9270; G0378; J1815

== ENCOUNTER 2022-11-10 00:09 | Emergency (ER) | payer OTHER ==
[~2022-11-10] VITALS: Ht 170.2 cm; Wt 81.7 kg
[~2022-11-10 00:09] MED LIST changes: +LOSA25 PO; +OMEP20ER PO
[2022-11-10 01:33] VITALS: BP 125/52
[2022-11-10] MEDS ORDERED: BISA10S PR (04:23)
== END 2022-11-10 04:46 | disposition home or self-care (01) ==
LOC: ER 00:09
DX: K56.41 Fecal impaction (principal); Z79.899 Other long term (current) drug therapy; Z79.4 Long term (current) use of insulin; E03.9 Hypothyroidism, unspecified; E11.40 Type 2 diabetes mellitus with diabetic neuropathy, unspecified; I25.10 Atherosclerotic heart disease of native coronary artery without angina pectoris; G47.33 Obstructive sleep apnea (adult) (pediatric); I10 Essential (primary) hypertension; E78.00 Pure hypercholesterolemia, unspecified; I48.0 Paroxysmal atrial fibrillation
CPT/HCPCS: 74018; 99283-25; A9270

== ENCOUNTER 2022-11-18 03:01 | Day surgery (SDC) | payer OTHER ==
[~2022-11-18 03:01] MED LIST changes: +BISA10S PR
== END 2022-11-18 22:44 | disposition home or self-care (01) ==
LOC: WOUND 03:01
DX: E11.622 Type 2 diabetes mellitus with other skin ulcer (principal); L97.822 Non-pressure chronic ulcer of other part of left lower leg with fat layer exposed; E11.21 Type 2 diabetes mellitus with diabetic nephropathy; E11.628 Type 2 diabetes mellitus with other skin complications; I87.312 Chronic venous hypertension (idiopathic) with ulcer of left lower extremity; I87.2 Venous insufficiency (chronic) (peripheral); E11.51 Type 2 diabetes mellitus with diabetic peripheral angiopathy without gangrene; E03.9 Hypothyroidism, unspecified; G47.33 Obstructive sleep apnea (adult) (pediatric); I10 Essential (primary) hypertension
CPT/HCPCS: A9270; G0463

== ENCOUNTER 2022-11-23 01:56 | Day surgery (SDC) | payer OTHER | END 2022-11-23 22:38 | disposition home or self-care (01) | LOC: WOUND 01:56 | DX: E11.622 Type 2 diabetes mellitus with other skin ulcer (principal); E03.9 Hypothyroidism, unspecified; Z95.1 Presence of aortocoronary bypass graft; E11.51 Type 2 diabetes mellitus with diabetic peripheral angiopathy without gangrene; I10 Essential (primary) hypertension; I25.10 Atherosclerotic heart disease of native coronary artery without angina pectoris; I87.312 Chronic venous hypertension (idiopathic) with ulcer of left lower extremity; I87.2 Venous insufficiency (chronic) (peripheral); E11.21 Type 2 diabetes mellitus with diabetic nephropathy; L97.822 Non-pressure chronic ulcer of other part of left lower leg with fat layer exposed | CPT/HCPCS: G0463 ==

== ENCOUNTER 2022-11-30 02:19 | Day surgery (SDC) | payer OTHER | END 2022-11-30 22:55 | disposition home or self-care (01) | LOC: WOUND 02:19 | DX: E11.622 Type 2 diabetes mellitus with other skin ulcer (principal); L97.822 Non-pressure chronic ulcer of other part of left lower leg with fat layer exposed; I87.2 Venous insufficiency (chronic) (peripheral); I87.312 Chronic venous hypertension (idiopathic) with ulcer of left lower extremity; E11.21 Type 2 diabetes mellitus with diabetic nephropathy; E11.51 Type 2 diabetes mellitus with diabetic peripheral angiopathy without gangrene | CPT/HCPCS: A9270; G0463 ==

== ENCOUNTER 2022-12-07 00:51 | Day surgery (SDC) | payer OTHER ==
[2022-12-07] MEDS ORDERED: ZENPEP DR 40,01 EACH PO (13:14)
== END 2022-12-07 22:44 | disposition home or self-care (01) ==
LOC: WOUND 00:51
DX: I87.312 Chronic venous hypertension (idiopathic) with ulcer of left lower extremity (principal); E11.622 Type 2 diabetes mellitus with other skin ulcer; E11.69 Type 2 diabetes mellitus with other specified complication; E11.51 Type 2 diabetes mellitus with diabetic peripheral angiopathy without gangrene; E11.21 Type 2 diabetes mellitus with diabetic nephropathy; E03.9 Hypothyroidism, unspecified; G47.33 Obstructive sleep apnea (adult) (pediatric); I10 Essential (primary) hypertension; M86.10 Other acute osteomyelitis, unspecified site; Z89.431 Acquired absence of right foot; Z95.1 Presence of aortocoronary bypass graft
CPT/HCPCS: G0463

== ENCOUNTER 2022-12-08 08:53 | Day surgery (SDC) | payer OTHER ==
[~2022-12-08] VITALS: Ht 170.2 cm; Wt 79.0 kg
[2022-12-08] VITALS (7 sets, daily range): BP systolic 107–178; BP diastolic 48–69
--- NOTE | 2022-12-08 12:48 | NUR ---
RIGHT FEMORAL GROIN SITE SOFT NON-TEMDER WITH NO HEMATOMA, NO BLEEDING AND INTACT DRESSING. PT DENIES CHEST PAIN. CALL LIGHT IN REACH.
--- NOTE | 2022-12-08 13:32 | NUR ---
RIGHT FEMORAL GROIN SITE STILL SOFT NON-TENDER WITH NO HEMATOMA, NO BLEEDING AND INTACT DRESSING. PT SITTING UP TO 30 DEGREES EATING LUNCH.
--- NOTE | 2022-12-08 14:39 | NUR ---
RIGHT FEMORAL GROIN SITE STILL SOFT NON-TENDER WITH NO HEMATOMA, NO BLEEDING AND INTACT DRESSING. DISCHARGE INSTRUCTIONS REVIEWED ALL QUESTIONS ANSWERED. 20 G IV DISCONTINUED FROM RIGHT AC WITH INTACT CANNULA. PT ESCORTED OUT VIA WHEELCHAIR ESCORT.
== END 2022-12-08 14:35 | disposition home or self-care (01) ==
LOC: MHTC 08:53
DX: E11.51 Type 2 diabetes mellitus with diabetic peripheral angiopathy without gangrene (principal); I70.222 Atherosclerosis of native arteries of extremities with rest pain, left leg; I10 Essential (primary) hypertension; E11.40 Type 2 diabetes mellitus with diabetic neuropathy, unspecified; E03.9 Hypothyroidism, unspecified; I48.0 Paroxysmal atrial fibrillation; G47.33 Obstructive sleep apnea (adult) (pediatric); I25.10 Atherosclerotic heart disease of native coronary artery without angina pectoris; Z95.1 Presence of aortocoronary bypass graft; Z89.511 Acquired absence of right leg below knee; Z79.4 Long term (current) use of insulin
CPT/HCPCS: 75625; 75716; 75774; 76937; 99152; 99153; C1725; C1760; C1769; C1887; C1894; C9764; C9772; J0360; J1644; J2250; J3010; J7030; J7050; Q9967

== ENCOUNTER 2022-12-14 01:27 | Day surgery (SDC) | payer OTHER | END 2022-12-14 22:53 | disposition home or self-care (01) | LOC: WOUND 01:27 | DX: E11.621 Type 2 diabetes mellitus with foot ulcer (principal); L97.822 Non-pressure chronic ulcer of other part of left lower leg with fat layer exposed; I87.312 Chronic venous hypertension (idiopathic) with ulcer of left lower extremity; E11.21 Type 2 diabetes mellitus with diabetic nephropathy; E11.628 Type 2 diabetes mellitus with other skin complications; I87.2 Venous insufficiency (chronic) (peripheral); E11.51 Type 2 diabetes mellitus with diabetic peripheral angiopathy without gangrene; I10 Essential (primary) hypertension; E03.9 Hypothyroidism, unspecified; G47.33 Obstructive sleep apnea (adult) (pediatric); Z95.1 Presence of aortocoronary bypass graft | CPT/HCPCS: A9270; G0463 ==

== ENCOUNTER 2022-12-28 01:17 | Day surgery (SDC) | payer OTHER | END 2022-12-28 22:47 | disposition home or self-care (01) | LOC: WOUND 01:17 | DX: E11.622 Type 2 diabetes mellitus with other skin ulcer (principal); L97.822 Non-pressure chronic ulcer of other part of left lower leg with fat layer exposed; I87.312 Chronic venous hypertension (idiopathic) with ulcer of left lower extremity; E11.21 Type 2 diabetes mellitus with diabetic nephropathy; E11.628 Type 2 diabetes mellitus with other skin complications; I87.2 Venous insufficiency (chronic) (peripheral); E03.9 Hypothyroidism, unspecified; Z95.1 Presence of aortocoronary bypass graft; I10 Essential (primary) hypertension; G47.33 Obstructive sleep apnea (adult) (pediatric); E11.51 Type 2 diabetes mellitus with diabetic peripheral angiopathy without gangrene | CPT/HCPCS: A9270; G0463 ==

== ENCOUNTER 2023-01-04 01:53 | Day surgery (SDC) | payer OTHER | END 2023-01-04 22:57 | disposition home or self-care (01) | LOC: WOUND 01:53 | DX: E11.622 Type 2 diabetes mellitus with other skin ulcer (principal); E11.621 Type 2 diabetes mellitus with foot ulcer; L97.522 Non-pressure chronic ulcer of other part of left foot with fat layer exposed; L97.822 Non-pressure chronic ulcer of other part of left lower leg with fat layer exposed; I87.312 Chronic venous hypertension (idiopathic) with ulcer of left lower extremity; E11.21 Type 2 diabetes mellitus with diabetic nephropathy; I87.2 Venous insufficiency (chronic) (peripheral); E11.51 Type 2 diabetes mellitus with diabetic peripheral angiopathy without gangrene | CPT/HCPCS: A9270 ==

== ENCOUNTER 2023-01-20 02:34 | Day surgery (SDC) | payer OTHER | END 2023-01-20 23:43 | disposition home or self-care (01) | LOC: WOUND 02:34 | DX: E11.622 Type 2 diabetes mellitus with other skin ulcer (principal); E11.621 Type 2 diabetes mellitus with foot ulcer; E11.21 Type 2 diabetes mellitus with diabetic nephropathy; L97.822 Non-pressure chronic ulcer of other part of left lower leg with fat layer exposed; L97.522 Non-pressure chronic ulcer of other part of left foot with fat layer exposed; S51.011A Laceration without foreign body of right elbow, initial encounter; I87.312 Chronic venous hypertension (idiopathic) with ulcer of left lower extremity; I73.9 Peripheral vascular disease, unspecified; X58.XXXA Exposure to other specified factors, initial encounter | CPT/HCPCS: A9270; G0463 ==

== ENCOUNTER 2023-01-25 12:01 | Inpatient (IN) | payer OTHER ==
[~2023-01-25] VITALS: Ht 170.2 cm; Wt 77.8 kg
[2023-01-25 12:48] LABS: BASOPHILS ABSOLUTE AUTO 0.05 K/mm3 (0.00-0.23); BASOPHILS PERCENT AUTO 1 % (0-2); EOSINOPHILS ABSOLUTE AUTO 0.04 K/mm3 (0.00-0.68); EOSINOPHILS PERCENT AUTO 0 % (0-6); Hematocrit 36.2 % (37.0-53.0); Hemoglobin 12.1 g/dL (13.5-17.5); IMMATURE GRAN ABSOLUTE AUTO 0.05 K/mm3 (0.00-0.10); IMMATURE GRAN PERCENT AUTO 1 % (0-1); LYMPHOCYTES ABSOLUTE AUTO 0.81 K/mm3 (0.84-5.20); LYMPHOCYTES PERCENT AUTO 8 % (21-46); MONOCYTES ABSOLUTE AUTO 0.56 K/mm3 (0.16-1.47); MONOCYTES PERCENT AUTO 6 % (4-13); Mean Corpuscular HGB 30.4 pg (26.0-34.0); Mean Corpuscular HGB Conc 33.4 g/dL (31.5-36.5); Mean Corpuscular Volume 91 fL (80-100); Mean Platelet Volume 8.4 fL (9.1-12.4); NEUTROPHILS ABSOLUTE AUTO 8.66 K/mm3 (1.96-9.15); NEUTROPHILS PERCENT AUTO 85 % (41-73); Platelet Count 379 K/mm3 (150-400); RDW Coefficient Variation 11.9 % (11.7-14.2); Red Blood Cell Count 3.98 M/mm3 (4.30-5.90); White Blood Cell Count 10.17 K/mm3 (4.00-11.30)
[2023-01-25 13:32] LABS: Albumin/Globulin Ratio 0.5 (0.8-1.8); Bilirubin, Total 0.4 mg/dL (0.1-1.0); Bun/Creatinine Ratio 20.9 (12.0-20.0); Calcium, Blood 9.2 mg/dL (8.5-10.1); Creatinine, Blood 0.77 mg/dL (0.60-1.20); Globulin, Blood 5.5 g/dL (2.2-4.0); Potassium, Blood 4.2 mmol/L (3.5-5.5); Total Protein, Blood 8.5 g/dL (6.4-8.2)
--- NOTE | 2023-01-25 16:11 | NUR ---
ATTEMPTED TO CALL FOR REPORT WAITING FOR CALL BACK FROM ED.
--- NOTE | 2023-01-25 17:08 | NUR ---
RECIEVED PHONE REPORT PER REPORT FROM ED, VSS, PT HAD A FLUID BOLUS OF 500ML IN ED. PLAN IS FOR LBKA. PT HAS PROSTETIC FOR THE OTHER LEG. PT JUST ARRIVED ON MEDICAL FLOOR AND IS CURRENTLY BEING EVALUATED BY ORTHO ON ARRIVAL.
[2023-01-25 17:29] VITALS: BP 159/60
--- NOTE | 2023-01-25 19:36 | NUR ---
SHIFT SUMMARY- PT ADMITTED THROUGH THE ED. PHOTOS TAKEN OF THE WOUNDS. ADMIT ASSESSMENT COMPLETED. PT HAS NO S&S OF PAIN AT THE TIME OF ARRIVAL. WOUNDS DRESSED PER ORTHO INSTRUCTION (DRY DRESSING JUST TO COVER). PT IN BED, CALL LIGHT IN REACH, NO S&S OF DISTRESS. REPORT COMPLETED WITH NIGHT RN. TELE IN PLACE SBR AT 57. PT HAS GLASSES ONE HERAING AID AND A PROSTETIC LIMB IN THE ROOM. CALLED DR MATIAS AT THE END OF THE SHIFT. PT BG 70 THIS EVENING, INSULIN HELD. ORDER TO FEED THE PT AND MAKE HIM NPO AT MIDNIGHT. ORDER RECIEVED FOR 1L NS AT 75ML/HR AND 1 AMP D50 IF BG IS LESS THAN 60. PASSED ALL ON TO NIGHT RN IN REPORT.
[2023-01-25] MEDS ORDERED: GABA100 PO (19:40)
[2023-01-25] MEDS ORDERED: OMEP20ER PO (19:42)
[2023-01-25] MEDS ORDERED: AMLO10 PO (19:46)
[2023-01-25 20:45] VITALS: BP 149/62
[2023-01-26 02:37] VITALS: BP 141/59
[2023-01-26 05:10] LABS: BASOPHILS ABSOLUTE AUTO 0.05 K/mm3 (0.00-0.23); BASOPHILS PERCENT AUTO 1 % (0-2); EOSINOPHILS ABSOLUTE AUTO 0.11 K/mm3 (0.00-0.68); EOSINOPHILS PERCENT AUTO 1 % (0-6); Hematocrit 32.1 % (37.0-53.0); Hemoglobin 10.7 g/dL (13.5-17.5); IMMATURE GRAN ABSOLUTE AUTO 0.04 K/mm3 (0.00-0.10); IMMATURE GRAN PERCENT AUTO 1 % (0-1); LYMPHOCYTES ABSOLUTE AUTO 1.29 K/mm3 (0.84-5.20); LYMPHOCYTES PERCENT AUTO 17 % (21-46); MONOCYTES ABSOLUTE AUTO 0.78 K/mm3 (0.16-1.47); MONOCYTES PERCENT AUTO 10 % (4-13); Mean Corpuscular HGB 30.5 pg (26.0-34.0); Mean Corpuscular HGB Conc 33.3 g/dL (31.5-36.5); Mean Corpuscular Volume 92 fL (80-100); Mean Platelet Volume 8.7 fL (9.1-12.4); NEUTROPHILS PERCENT AUTO 70 % (41-73); Platelet Count 342 K/mm3 (150-400); RDW Coefficient Variation 12.3 % (11.7-14.2); Red Blood Cell Count 3.51 M/mm3 (4.30-5.90); White Blood Cell Count 7.67 K/mm3 (4.00-11.30)
[2023-01-26 05:41] LABS: Albumin, Blood 2.4 g/dL (3.4-5.0); Albumin/Globulin Ratio 0.6 (0.8-1.8); Bilirubin, Total 0.3 mg/dL (0.1-1.0); Calcium, Blood 8.6 mg/dL (8.5-10.1); Creatinine, Blood 0.76 mg/dL (0.60-1.20); Globulin, Blood 4.2 g/dL (2.2-4.0); Potassium, Blood 3.9 mmol/L (3.5-5.5); Total Protein, Blood 6.6 g/dL (6.4-8.2)
--- NOTE | 2023-01-26 06:20 | NUR ---
SHIFT SUMMARY PATIENT A/Ox4, BRIGHT AFFECT, PLEASANT/COOPERATIVE. DENIES PAIN NOR DISCOMFORT. ASLEEP OFF AND ON THROUGHOUT SHIFT. IS NPO SINCE MIDNIGHT FOR SURGERY TO LLE. HAS PROSTETIC FOR THE RIGHT. NOTIFIED BY TELE THAT PATIENT'S HR IS FREQUENTLY CIARA WITH LOWS IN 50s, WITH BRIEF DIPS INTO 40s. ASSESSED PATIENT, WAS ASLEEP, STATES THIS IS NORMAL FOR HIM. APPEARS ASYMPTOMATIC, NO COMPLAINTS STATED. NO ACUTE CHANGES NOTED OVERNIGHT. BED LOCKED AND IN LOWEST POSITION, CALL LIGHT WITHIN REACH.
[2023-01-26 07:55] VITALS: BP 152/59
--- NOTE | 2023-01-26 11:25 | NUR ---
ASSUMED CARE OF PT. MORNING INSULIN NOT ADMINISTERED DUE TO PT BEING NPO AND HEADING TO SURGERY. BLOOD GLUCOSE LEVELS STABLE, NO ACUTE EVENTS AT THIS TIME.
--- NOTE | 2023-01-26 13:41 | NUR ---
PT NPO WITH A BLOOD GLUCOSE OF 67. 12.5 ML OF D50 GIVEN PER HYPOGLYCEMIA PROTOCOL.
[2023-01-26 15:47] VITALS: BP 157/61
--- NOTE | 2023-01-26 15:59 | NUR ---
RIGHT AC IV SITE FLUSHED WITH 10NS/PATENT.
--- NOTE | 2023-01-26 17:02 | NUR ---
DR CLAUDIO SPOKE WITH PATIENT AND WILL RESCHEDULE SURGERY UNTIL TOMORROW DUE TO EMERGENT CASE TO PROCEED.
--- NOTE | 2023-01-26 18:17 | NUR ---
SHIFT SUMMARY PT UNABE TO RECEIVE SURGERY TODAY, WILL RECEIVE SURGERY ON 01/27/23. PT RECEIVED 12.5ML OF D50 PER HYPOGLYCEMIA PROTOCOL AND PHYSICIAN NOTIFIED. NO ACUTE EVENTS DURING SHIFT. VSS. PT LEFT IN A POSITION OF SAFETY WITH BED LOCKED AND IN LOWEST POSITION, ROOM CLEAR OF DEBRIS, BED RAILS RAISED X2, AND CALL LIGHT IN PLACE. NONSKID SOCKS REFUSED DUE TO WOUND, RLE AMPUTATED.
[2023-01-26 19:21] VITALS: BP 150/54
[2023-01-27] VITALS (25 sets, daily range): BP systolic 107–163; BP diastolic 53–69
[2023-01-27 04:12] LABS: BASOPHILS ABSOLUTE AUTO 0.06 K/mm3 (0.00-0.23); BASOPHILS PERCENT AUTO 1 % (0-2); EOSINOPHILS ABSOLUTE AUTO 0.14 K/mm3 (0.00-0.68); EOSINOPHILS PERCENT AUTO 2 % (0-6); Hematocrit 33.8 % (37.0-53.0); Hemoglobin 11.3 g/dL (13.5-17.5); IMMATURE GRAN ABSOLUTE AUTO 0.04 K/mm3 (0.00-0.10); IMMATURE GRAN PERCENT AUTO 1 % (0-1); LYMPHOCYTES ABSOLUTE AUTO 1.27 K/mm3 (0.84-5.20); LYMPHOCYTES PERCENT AUTO 15 % (21-46); MONOCYTES ABSOLUTE AUTO 0.76 K/mm3 (0.16-1.47); MONOCYTES PERCENT AUTO 9 % (4-13); Mean Corpuscular HGB 30.9 pg (26.0-34.0); Mean Corpuscular HGB Conc 33.4 g/dL (31.5-36.5); Mean Corpuscular Volume 92 fL (80-100); Mean Platelet Volume 8.4 fL (9.1-12.4); NEUTROPHILS ABSOLUTE AUTO 6.13 K/mm3 (1.96-9.15); NEUTROPHILS PERCENT AUTO 73 % (41-73); Platelet Count 329 K/mm3 (150-400); RDW Standard Deviation 40.9 fL (35.1-46.3); Red Blood Cell Count 3.66 M/mm3 (4.30-5.90)
--- NOTE | 2023-01-27 04:23 | NUR ---
SHIFT SUMMARY PATIENT A/Ox4, BRIGHT AFFECT, COOPERATIVE WITH CARES. DENIES PAIN NOR DISCOMFORT AT TIME OF ASSESSMENT. C/O PAIN TO LLE AT HS, MEDICATED PER JUN, TOLERATED WELL. ASLEEP OFF AND ON THROUGHOUT SHIFT. WILL BE NPO AFTER BREAKFAST FOR SURGERY, PATIENT AWARE. NO ACUTE CHANGES NOTED OVERNIGHT. BED LOCKED AND IN LOWEST POSITION, CALL LIGHT WITHIN REACH.
[2023-01-27 04:39] LABS: Anion Gap 4 mmol/L (6-16); Blood Urea Nitrogen 14 mg/dL (8-24); Bun/Creatinine Ratio 17.3 (12.0-20.0); CO2, Blood 28 mmol/L (21-32); Calcium, Blood 8.6 mg/dL (8.5-10.1); Chloride, Blood 103 mmol/L (98-108); Creatinine, Blood 0.81 mg/dL (0.60-1.20); Glomerular Filtration Rate 87 (60-); Glucose, Blood 147 mg/dL (70-99); Potassium, Blood 4.1 mmol/L (3.5-5.5); Sodium, Blood 135 mmol/L (136-145); Vancomycin, Trough 11.7 ug/mL (5.0-10.0)
--- NOTE | 2023-01-27 16:36 | NUR ---
TO OR VIA BED TRANSFER FOR SCHEDULED L AKA.
[2023-01-28 03:55] VITALS: BP 150/61
--- NOTE | 2023-01-28 04:07 | NUR ---
SHIFT SUMMERY, PT RESTING IN BED, NO DRAINAGE TO DRG SEEN. PT AT BEGINING OF SHIFT DENIED PAIN, PT MEDICATED FOR MILD PAIN BUT PAIN INCREAED AND DR CALLED TO INCREASE PAIM MEDS. PT SLEPT ON AND OF MOST OF THE NIGHT. PT NOT HAVING ANY N/V ALERT AND ORIENTED. CALL LIGHT IN REACH. PT JUST MEDICATED AGAIN FOR 8/10 PAIN.
[2023-01-28 04:20] LABS: BASOPHILS ABSOLUTE AUTO 0.07 K/mm3 (0.00-0.23); BASOPHILS PERCENT AUTO 1 % (0-2); EOSINOPHILS ABSOLUTE AUTO 0.13 K/mm3 (0.00-0.68); EOSINOPHILS PERCENT AUTO 1 % (0-6); Hematocrit 31.8 % (37.0-53.0); Hemoglobin 10.8 g/dL (13.5-17.5); IMMATURE GRAN ABSOLUTE AUTO 0.03 K/mm3 (0.00-0.10); IMMATURE GRAN PERCENT AUTO 0 % (0-1); LYMPHOCYTES ABSOLUTE AUTO 1.11 K/mm3 (0.84-5.20); LYMPHOCYTES PERCENT AUTO 12 % (21-46); MONOCYTES ABSOLUTE AUTO 0.69 K/mm3 (0.16-1.47); MONOCYTES PERCENT AUTO 7 % (4-13); Mean Corpuscular HGB 30.8 pg (26.0-34.0); Mean Corpuscular Volume 91 fL (80-100); Mean Platelet Volume 8.4 fL (9.1-12.4); NEUTROPHILS PERCENT AUTO 78 % (41-73); Platelet Count 314 K/mm3 (150-400); RDW Coefficient Variation 12.1 % (11.7-14.2); RDW Standard Deviation 40.1 fL (35.1-46.3); Red Blood Cell Count 3.51 M/mm3 (4.30-5.90); White Blood Cell Count 9.33 K/mm3 (4.00-11.30)
[2023-01-28 04:39] LABS: Anion Gap 6 mmol/L (6-16); Blood Urea Nitrogen 13 mg/dL (8-24); Bun/Creatinine Ratio 18.2 (12.0-20.0); CO2, Blood 26 mmol/L (21-32); Calcium, Blood 8.3 mg/dL (8.5-10.1); Chloride, Blood 103 mmol/L (98-108); Creatinine, Blood 0.71 mg/dL (0.60-1.20); Glomerular Filtration Rate 91 (60-); Glucose, Blood 121 mg/dL (70-99); Potassium, Blood 4.2 mmol/L (3.5-5.5); Sodium, Blood 135 mmol/L (136-145); Vancomycin, Trough 14.9 ug/mL (5.0-10.0)
[2023-01-28 07:21] VITALS: BP 140/57
[2023-01-28 16:53] VITALS: BP 167/62
--- NOTE | 2023-01-28 18:53 | NUR ---
SHIFT SUMMARY: PT A/O X 4, BEDREST AT THIS TIME. PLEASANT AND COOPERATIVE. PAIN MANAGED WELL AT THIS TIME. PT HAS GOOD APPETITE. BLOOD SUGARS MANAGED. DRESSING TO [facility] AT SEND OF SHIFT. PT DENIES CONCERNS AT THIS TIME, RESTING IN BED APPEARS TO BE WATCHING TV IN NO APPARENT DISTRESS.
[2023-01-28 20:04] VITALS: BP 158/61
--- NOTE | 2023-01-29 02:40 | NUR ---
SHIFT SUMMERY, PT RESTING IN BED, USES URINAL TO VOID. PT MEDICATED FOR PAIN X 2 SO FAR THIS NIGHT. PT HAS RATED PAIN A 8/10 BEFRE PAIN MEDS GIVEN. PT HAVING SOME MUSCLE CRAMPING ALSO TO AKA. PT ABLE TO SLEEP OFF AND ON. CALL LIGHT IN REACH.
[2023-01-29 04:54] VITALS: BP 134/59
[2023-01-29 04:58] LABS: BASOPHILS ABSOLUTE AUTO 0.04 K/mm3 (0.00-0.23); BASOPHILS PERCENT AUTO 0 % (0-2); EOSINOPHILS PERCENT AUTO 1 % (0-6); Hematocrit 31.6 % (37.0-53.0); Hemoglobin 10.8 g/dL (13.5-17.5); IMMATURE GRAN ABSOLUTE AUTO 0.07 K/mm3 (0.00-0.10); IMMATURE GRAN PERCENT AUTO 1 % (0-1); LYMPHOCYTES PERCENT AUTO 10 % (21-46); MONOCYTES ABSOLUTE AUTO 1.17 K/mm3 (0.16-1.47); MONOCYTES PERCENT AUTO 10 % (4-13); Mean Corpuscular HGB 30.4 pg (26.0-34.0); Mean Corpuscular HGB Conc 34.2 g/dL (31.5-36.5); Mean Corpuscular Volume 89 fL (80-100); Mean Platelet Volume 8.8 fL (9.1-12.4); NEUTROPHILS ABSOLUTE AUTO 9.75 K/mm3 (1.96-9.15); NEUTROPHILS PERCENT AUTO 79 % (41-73); Platelet Count 321 K/mm3 (150-400); RDW Coefficient Variation 11.9 % (11.7-14.2); RDW Standard Deviation 38.6 fL (35.1-46.3); Red Blood Cell Count 3.55 M/mm3 (4.30-5.90); White Blood Cell Count 12.33 K/mm3 (4.00-11.30)
[2023-01-29 05:23] LABS: Bun/Creatinine Ratio 21.8 (12.0-20.0); Calcium, Blood 8.4 mg/dL (8.5-10.1); Creatinine, Blood 0.64 mg/dL (0.60-1.20); Potassium, Blood 4.6 mmol/L (3.5-5.5)
[2023-01-29 08:26] VITALS: BP 141/56
[2023-01-29 16:57] LABS: Vancomycin, Trough 13.4 ug/mL (5.0-10.0)
[2023-01-29 17:13] VITALS: BP 150/63
--- NOTE | 2023-01-29 18:38 | NUR ---
SHIFT SUMMARY: PAT IS A&OX4. VSS, NO ACUTE EVENTS THIS SHIFT. DR. OCONNOR CHANGED THE BANDAGE TO PT'S LLE THIS AFTERNOON. PT IS TOLERATING PO INTAKE WELL, IV TO R AC PATENT, AND PT WAS ABLE TO UTILIZE THE SLIDE BOARD TO TRANSFER TO THE TODAY. REQUESTED BSC WITH DROP ARM FOR PT. HE IS TOLERATING PO INTAKE WELL AND IS USING THE URINAL WITHOUT DIFFICULTY. HE IS LYING IN BED WITH THE CALL LIGHT IN REACH. TM UNTIL REPORT IS GIVEN TO DRIVER COURIER RN.
[2023-01-29 19:14] VITALS: BP 138/45
[2023-01-30 02:42] VITALS: BP 146/57
--- NOTE | 2023-01-30 02:45 | NUR ---
SHIFT SUMMERY, PT RESTING IN BED, PT MEDICATED FOR PAIN AT ABOUT 2111. PT GIVEN ISHMAEL , MOM AND WARM PRUNE JUICE. NO RESULTS YET. PT SEEMS TO BE SLEEPING WELL AMD SEEMS COMFORTABLE. CALL LIGHT IN REACH.
[2023-01-30 05:16] LABS: BASOPHILS ABSOLUTE AUTO 0.04 K/mm3 (0.00-0.23); BASOPHILS PERCENT AUTO 0 % (0-2); EOSINOPHILS ABSOLUTE AUTO 0.15 K/mm3 (0.00-0.68); EOSINOPHILS PERCENT AUTO 1 % (0-6); Hematocrit 30.5 % (37.0-53.0); Hemoglobin 10.3 g/dL (13.5-17.5); IMMATURE GRAN ABSOLUTE AUTO 0.05 K/mm3 (0.00-0.10); IMMATURE GRAN PERCENT AUTO 1 % (0-1); LYMPHOCYTES ABSOLUTE AUTO 1.27 K/mm3 (0.84-5.20); LYMPHOCYTES PERCENT AUTO 12 % (21-46); MONOCYTES ABSOLUTE AUTO 1.12 K/mm3 (0.16-1.47); MONOCYTES PERCENT AUTO 10 % (4-13); Mean Corpuscular HGB 30.5 pg (26.0-34.0); Mean Corpuscular HGB Conc 33.8 g/dL (31.5-36.5); Mean Corpuscular Volume 90 fL (80-100); Mean Platelet Volume 8.6 fL (9.1-12.4); NEUTROPHILS ABSOLUTE AUTO 8.43 K/mm3 (1.96-9.15); NEUTROPHILS PERCENT AUTO 76 % (41-73); Platelet Count 315 K/mm3 (150-400); RDW Coefficient Variation 12.3 % (11.7-14.2); RDW Standard Deviation 40.4 fL (35.1-46.3); Red Blood Cell Count 3.38 M/mm3 (4.30-5.90); White Blood Cell Count 11.06 K/mm3 (4.00-11.30)
--- NOTE | 2023-01-30 05:42 | NUR ---
PT RESTING IN BED, PTS COVID TEST DONE AND SENT TO LAB, SUPPOSITORY PLACED IN RECTUM FOR BM. PT PASSING GAS BUT NO RESULTS YET. BED PAD AND DEPENDS CAHNGED ARCHANA CARES DONE. CALL LIGHT IN REACH.
[2023-01-30 05:45] LABS: Calcium, Blood 8.7 mg/dL (8.5-10.1); Creatinine, Blood 0.77 mg/dL (0.60-1.20); Potassium, Blood 4.4 mmol/L (3.5-5.5)
[2023-01-30 06:08] LABS: SARS-Cov-2 (COVID-19) PCR, MMC NEGATIVE (NEGATIVE)
[2023-01-30 07:46] VITALS: BP 147/58
--- NOTE | 2023-01-30 11:00 | NUR ---
CALLED AND SPOKE WITH ON-CALL ORTHOPEDIC SURGEON. SURGEON STATES PT IS CLEARED TO DISCHARGE LONG PT'S DRESSING IS CLEAN AND DRY. SURGEON ALSO CONFIRMED DOSING OF LOVENOX PER DR. MICHELLE. SURGEON STATED THAT PT NEEDS TO FOLLOWUP WITH DR. LAGUERRE, AN APPOINTMENT CAN BE SCHEDULED WHEN HER OFFICE REOPENS ON WEDNESDAY. UPDATED DR. MICHELLE.
[2023-01-30] MEDS ORDERED: OXAYDO5 M4 PO (11:18)
[2023-01-30] MEDS ORDERED: Acetaminophen650 M1 PO (11:23)
[2023-01-30] MEDS ORDERED: BISA10S PR (11:26)
[2023-01-30] MEDS ORDERED: CEFEPIME HCL1 G1 IV (11:29)
[2023-01-30] MEDS ORDERED: SENNA PLUS PO (11:31)
[2023-01-30] MEDS ORDERED: HUMULIN R100 UNIT/1 SC (11:34)
[2023-01-30] MEDS ORDERED: DULCOLAX400 MG/5 M PO (11:35)
[2023-01-30] MEDS ORDERED: ONDA4 PO (11:35)
[2023-01-30] MEDS ORDERED: MIRALAX17 GM PO (11:36)
[2023-01-30] MEDS ORDERED: ENOX100I SC (11:36)
[2023-01-30] MEDS ORDERED: TRAZ50 PO (11:37)
[2023-01-30] MEDS ORDERED: VANCOMYCIN IV (11:39)
[2023-01-30] MEDS ORDERED: VISBIOME 112.51 EACH PO (11:40)
[2023-01-30 15:28] VITALS: BP 164/61
--- NOTE | 2023-01-30 16:00 | NUR ---
PT DISCHARGED TO [facility]. REPORT CALLED, ALL PT BELONGINGS SENT W/PT. TRANSPORTATION PROVIDED BY [facility]. DISCHARGE PACKET SENT INCLUDING HARD SCRIPT. IV LEFT IN PLACE FOR CONTINUATION OF IV ABX @ [facility].
== END 2023-01-30 15:38 | DRG 240 ==
LOC: ER 12:01 → MEDS 14:54
PROVIDERS: Orthopaedic Surgery; Student in an Organized Health Care Education/Training Program; ADMIT Hospitalist
PROC: 0Y6D0Z3 Detachment at Left Upper Leg, Low, Open Approach (ICD-10-PCS; principal; 2023-01-27 16:00)
DX: E11.52 Type 2 diabetes mellitus with diabetic peripheral angiopathy with gangrene (principal); I70.262 Atherosclerosis of native arteries of extremities with gangrene, left leg; L03.116 Cellulitis of left lower limb; E11.621 Type 2 diabetes mellitus with foot ulcer; L97.523 Non-pressure chronic ulcer of other part of left foot with necrosis of muscle; I25.10 Atherosclerotic heart disease of native coronary artery without angina pectoris; E03.9 Hypothyroidism, unspecified; I10 Essential (primary) hypertension; G47.33 Obstructive sleep apnea (adult) (pediatric); E11.40 Type 2 diabetes mellitus with diabetic neuropathy, unspecified; I48.0 Paroxysmal atrial fibrillation; E78.00 Pure hypercholesterolemia, unspecified; J45.20 Mild intermittent asthma, uncomplicated; Z95.0 Presence of cardiac pacemaker; Z98.1 Arthrodesis status; Z85.038 Personal history of other malignant neoplasm of large intestine; Z95.820 Peripheral vascular angioplasty status with implants and grafts; Z89.511 Acquired absence of right leg below knee; Z79.4 Long term (current) use of insulin; Z87.19 Personal history of other diseases of the digestive system; Z90.49 Acquired absence of other specified parts of digestive tract; Z95.5 Presence of coronary angioplasty implant and graft
CPT/HCPCS: 36415; 71045; 73552; 73701; 80048; 80053; 80202; 82947; 83036; 85025; 86850; 86900; 86901; 88307; 88311; 96361; 96374-59; 96375-59; 97110; 97162; 97165; 97530; 99284-25; A9270; J0692; J1170; J1650; J1815; J3010; J3370; J7030; J7050; J7120; Q9967; U0002

== ENCOUNTER 2024-08-03 18:32 | Inpatient (IN) | payer OTHER ==
[~2024-08-03] VITALS: Ht 170.2 cm; Wt 71.2 kg
[~2024-08-03 18:32] MED LIST changes: +ASCO500 PO; +Acetaminophen650 M1 PO; +BACL10 PO; +BANATROL PLUS1 EAC1 PO; +CEFEPIME HCL1 G1 IV; +CONSTULOSE10 GM/15 M PO; +DOCUZEN 8.6-501 EACH PO; +DULCOLAX400 MG/5 M PO; +ENOX100I SC; +HUMULIN R100 UNIT/1 SC; +LACT10SY PO; +MIRALAX17 GM PO; +ONDA4 PO; +OXAYDO5 M4 PO; +SENNA PLUS PO; +TRAZ50 PO; +VANCOMYCIN IV; +VISBIOME 112.51 EACH PO; +VITAMIN C125 MG PO; +ZENPEP DR 20,01 EACH PO
[2024-08-03] MEDS ORDERED: Morphine Sulfate 4 MG/1 ML Injection IV ONE ×2 (18:45→20:35)
[2024-08-03] MEDS ORDERED: NS 1,000 ML IV SCH ×2 (18:45→22:15)
[2024-08-03] MEDS ORDERED: Ondansetron HCl 2 MG / ML 2ML Vial IV ONE (18:45)
[2024-08-03 19:04] LABS: BASOPHILS ABSOLUTE AUTO 0.05 K/mm3 (0.00-0.23); BASOPHILS PERCENT AUTO 0 % (0-2); EOSINOPHILS ABSOLUTE AUTO 0.01 K/mm3 (0.00-0.68); EOSINOPHILS PERCENT AUTO 0 % (0-6); Hematocrit 48.2 % (37.0-53.0); Hemoglobin 16.5 g/dL (13.5-17.5); IMMATURE GRAN ABSOLUTE AUTO 0.11 K/mm3 (0.00-0.10); IMMATURE GRAN PERCENT AUTO 1 % (0-1); LYMPHOCYTES ABSOLUTE AUTO 0.69 K/mm3 (0.84-5.20); LYMPHOCYTES PERCENT AUTO 5 % (21-46); MONOCYTES ABSOLUTE AUTO 0.78 K/mm3 (0.16-1.47); MONOCYTES PERCENT AUTO 5 % (4-13); Mean Corpuscular HGB Conc 34.2 g/dL (31.5-36.5); Mean Corpuscular Volume 90 fL (80-100); Mean Platelet Volume 9.8 fL (9.1-12.4); NEUTROPHILS ABSOLUTE AUTO 13.01 K/mm3 (1.96-9.15); NEUTROPHILS PERCENT AUTO 89 % (41-73); Platelet Count 234 K/mm3 (150-400); RDW Coefficient Variation 13.3 % (11.7-14.2); RDW Standard Deviation 43.6 fL (35.1-46.3); Red Blood Cell Count 5.33 M/mm3 (4.30-5.90); White Blood Cell Count 14.65 K/mm3 (4.00-11.30)
[2024-08-03 19:27] LABS: Albumin, Blood 3.9 g/dL (3.4-5.0); Albumin/Globulin Ratio 0.8 (0.8-1.8); Bilirubin, Total 0.7 mg/dL (0.1-1.0); Bun/Creatinine Ratio 18.6 (12.0-20.0); Calcium, Blood 9.6 mg/dL (8.5-10.1); Creatinine, Blood 1.13 mg/dL (0.60-1.20); Globulin, Blood 4.6 g/dL (2.2-4.0); Magnesium, Blood 2.5 mg/dL (1.6-2.4); Potassium, Blood 4.6 mmol/L (3.5-5.5); Total Protein, Blood 8.5 g/dL (6.4-8.2)
[2024-08-03] MEDS ORDERED: FentaNYL Citrate 50 MCG/ML 2 ML Injection IV PRN (22:15)
[2024-08-03] MEDS ORDERED: Ondansetron HCl 2 MG / ML 2ML Vial IV PRN (22:15)
[2024-08-03] MEDS ORDERED: Insulin Glargine-Yfgn 100 Unit/mL 3 ML SYR SC SCH (23:00)
[2024-08-04] VITALS (8 sets, daily range): BP systolic 101–137; BP diastolic 56–108
[2024-08-04 03:49] LABS: Hematocrit 49.8 % (37.0-53.0); Hemoglobin 16.6 g/dL (13.5-17.5); Mean Corpuscular HGB 30.7 pg (26.0-34.0); Mean Corpuscular HGB Conc 33.3 g/dL (31.5-36.5); Mean Corpuscular Volume 92 fL (80-100); Mean Platelet Volume 9.9 fL (9.1-12.4); Platelet Count 244 K/mm3 (150-400); RDW Coefficient Variation 13.5 % (11.7-14.2); RDW Standard Deviation 45.6 fL (35.1-46.3); Red Blood Cell Count 5.41 M/mm3 (4.30-5.90); White Blood Cell Count 9.68 K/mm3 (4.00-11.30)
[2024-08-04 04:10] LABS: Albumin, Blood 3.6 g/dL (3.4-5.0); Albumin/Globulin Ratio 0.9 (0.8-1.8); Bun/Creatinine Ratio 15.9 (12.0-20.0); Calcium, Blood 8.8 mg/dL (8.5-10.1); Creatinine, Blood 1.7 mg/dL (0.60-1.20); Globulin, Blood 3.9 g/dL (2.2-4.0); Potassium, Blood 4.6 mmol/L (3.5-5.5); Total Protein, Blood 7.5 g/dL (6.4-8.2)
[2024-08-04 04:11] LABS: BAND PERCENT MAN 24 % (0-8); BASOPHILS ABSOLUTE MAN 0.09 K/mm3 (0.00-0.23); BASOPHILS PERCENT MAN 1 % (0-2); EOSINOPHILS PERCENT MAN 0 % (0-6); LYMPHOCYTES ABSOLUTE MAN 0.38 K/mm3 (0.84-5.20); LYMPHOCYTES PERCENT MAN 4 % (21-46); METAMYELOCYTE ABSOLUTE MAN 0.09 K/mm3 (0.00-0.00); METAMYELOCYTE PERCENT MAN 1 % (0-0); MONOCYTES ABSOLUTE MAN 0.58 K/mm3 (0.16-1.47); MONOCYTES PERCENT MAN 6 % (4-13); NEUTROPHILS ABSOLUTE MAN 8.51 K/mm3 (1.96-9.15); SEG NEUTROPHILS PERCENT MAN 64 % (41-73); TOTAL CELLS COUNTED 100
[2024-08-04] MEDS ORDERED: Insulin Human Lispro 100 Units/ML 3ML Syringe SC SCH ×2 (06:00→07:30)
[2024-08-04] MEDS ORDERED: Lactated Ringer's 1,000 ML IV SCH (07:50)
[2024-08-04] MEDS ORDERED: Lactated Ringer's 1,000 ML IV ONE ×2 (07:50→16:00)
--- NOTE | 2024-08-04 07:57 | NUR ---
ADMIT RM 228 PATIENT ADMITTED FROM THE ER TO ROOM 228. NG NOTED LT NARE. NEEDS TO BE TO LOW INTERMITTENT SUCTION. PER REPORT 2 CANISTERS OUT IN ED. PATIENT ALERT AND ORIENTED. PLEASANT AND COOPERATIVE WITH CARE. ORIENTED TO ROOM AND CALL LIGHT. WILL GIVE SCHEDULED MEDICATIONS ORDERED. CALL LIGHT IN REACH AND BED IN LOWEST POSITION. 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 HX OF BOWEL OBSTRUCTION. PATIENT FEELING MUCH BETTER AFTER NG FOR DECOMPRESSION. AYANA HICKS RN HELPING WITH ADMIT. BS 300 ON LAB DRAWN IN ED. INSULIN WAS SENT TO ED FOR THEM TO GIVE. WE WILL CHECK IF PT GOT MEDS.
--- NOTE | 2024-08-04 08:05 | NUR ---
SHIFT SUMMARY. PATIENT RESTED WELL. MEDICATIONS GIVEN ORDERED. NG CONT TO PUT OUT ORANGE COLORED DRAINAGE. PT DENIES N/V. [employer] ARCHITECT IS VARIFYING HIS MED LIST AND ALLERGIES. CHARGE DID THE ASSESSMENT AND CHARTING IT. TELE IN PLACE. PER PATIENT LAST BM WAS YESTERDAY 08/03/24.
--- NOTE | 2024-08-04 08:17 | NUR ---
PT VERB HE IS UNABLE TO ANSWER MED AND HX QUESTIONS.PT LIVES AT [facility].I CALLED [facility] AND I WAS UNABLE TO REACH SOMEONE. I LEFT MESSAGE FOR GEAR SHAPER SET UP OPERATOREXTRACTOR FILLER FOR RETURN CALL TO GET RECORDS ON PT.NO RETURN CALL YET.
[2024-08-04 08:47] LABS: Base Excess Venous -8.2 mmol/L; Bicarbonate Venous 18.1 mmol/L (24.0-30.0); pH Blood Venous 7.28 (7.34-7.37)
[2024-08-04 08:48] LABS: PCO2 Venous 40.1 mmHg (38-42)
--- NOTE | 2024-08-04 09:10 | NUR ---
ATTEMPED TO NOTIFY DR. VELASQUEZ REGARDING CRITICAL LAB RESULTS.
--- NOTE | 2024-08-04 09:50 | NUR ---
DR. BRAR NOTIFIED OF CRITICAL LAB VALUES + BLOODY DRAINAGE COMING OUT OF NGT. NGT SUCTION STOPPED. DR. BARR VERBALIZED SHE WOULD COME SEE THE PT SHORTLY.
[2024-08-04] MEDS ORDERED: LOSA25 PO (10:50)
--- NOTE | 2024-08-04 11:06 | NUR ---
NOTIFIED DR. BRAR OF CRITICAL LACTIC ACID, RHYTHM CHANGE TO ALFUTTER, AND O2 NEEDS. DR. BRAR TO PLACE NEW ORDERS.
[2024-08-04] MEDS ORDERED: Pantoprazole Sodium 40 MG Injection IV SCH (12:00)
[2024-08-04] MEDS ORDERED: Prochlorperazine Edisylate 10 mg Vial IV PRN (14:20)
[2024-08-04 14:49] LABS: Hemoglobin 16.6 g/dL (13.5-17.5); Mean Corpuscular HGB 30.7 pg (26.0-34.0); Mean Corpuscular HGB Conc 33.9 g/dL (31.5-36.5); Mean Corpuscular Volume 91 fL (80-100); Mean Platelet Volume 9.8 fL (9.1-12.4); Platelet Count 211 K/mm3 (150-400); RDW Coefficient Variation 13.7 % (11.7-14.2); RDW Standard Deviation 45.8 fL (35.1-46.3); Red Blood Cell Count 5.41 M/mm3 (4.30-5.90)
[2024-08-04 15:12] LABS: Calcium, Blood 8.6 mg/dL (8.5-10.1); Creatinine, Blood 1.76 mg/dL (0.60-1.20); Potassium, Blood 4.8 mmol/L (3.5-5.5)
--- NOTE | 2024-08-04 16:03 | NUR ---
SHIFT SUMMARY ADMIT FOR SBO WITH ALIE. NPO WITH NGT TO LIS. NG OUTPUT IS RED IN COLOR. DR. REID AWARE. PT INTERMITTENTLY NAUSEATED, BUT NO EMESIS. PT REPORTS PASSING FLATUS THIS AM, BUT NONE THIS AFTERNOON. ABD FIRM, DISTENDED, AND TENDER. ASSISTING WITH URINAL TO VOID. IVF INFUSING PER ORDERS. X1 BOLUS GIVEN PER ORDERS. ON 3L O2 VIA NC TO MAINTAIN SATS >90%. VSS, BUT RR MID 20s. PT RESTING IN BED WITH EYES CLOSED, BUT AWAKENS APPROPRIATELY. CALL LIGHT WITHIN REACH. POSSIBLE OR TOMORROW VS SBFT PER DR. REID. REPEAT LABS IN AM.
[2024-08-04] MEDS ORDERED: Pantoprazole Sodium 40 MG in NS 50 ML IV SCH (23:45)
[2024-08-04] MEDS ORDERED: Pantoprazole Sodium 40 MG Injection IV ONE (23:50)
[2024-08-04] MEDS ORDERED: FentaNYL Citrate 50 MCG/ML 2 ML Injection IV ONE (23:50)
[2024-08-04 23:52] LABS: Base Excess Venous -2.9 mmol/L; Bicarbonate Venous 21.9 mmol/L (24.0-30.0); PCO2 Venous 34.7 mmHg (38-42); pH Blood Venous 7.41 (7.34-7.37)
[2024-08-05] VITALS (50 sets, daily range): BP systolic 93–127; BP diastolic 39–74
[2024-08-05 00:09] LABS: Hematocrit 46.4 % (37.0-53.0); Hemoglobin 15.6 g/dL (13.5-17.5); Mean Corpuscular HGB 30.3 pg (26.0-34.0); Mean Corpuscular HGB Conc 33.6 g/dL (31.5-36.5); Mean Corpuscular Volume 90 fL (80-100); Mean Platelet Volume 9.8 fL (9.1-12.4); Platelet Count 203 K/mm3 (150-400); RDW Coefficient Variation 14.1 % (11.7-14.2); RDW Standard Deviation 46.5 fL (35.1-46.3); Red Blood Cell Count 5.15 M/mm3 (4.30-5.90); White Blood Cell Count 9.65 K/mm3 (4.00-11.30)
--- NOTE | 2024-08-05 00:15 | NUR ---
FAMILY CONTACT CALL PLACED TO SONCELENA. NO ANSWER. MESSAGE LEFT.
[2024-08-05 00:27] LABS: Albumin, Blood 2.8 g/dL (3.4-5.0); Albumin/Globulin Ratio 0.7 (0.8-1.8); Bilirubin, Total 1.2 mg/dL (0.1-1.0); Bun/Creatinine Ratio 28.6 (12.0-20.0); Calcium, Blood 8.3 mg/dL (8.5-10.1); Creatinine, Blood 1.4 mg/dL (0.60-1.20); Globulin, Blood 3.8 g/dL (2.2-4.0); Potassium, Blood 4.6 mmol/L (3.5-5.5); Total Protein, Blood 6.6 g/dL (6.4-8.2)
[2024-08-05 00:37] LABS: BAND PERCENT MAN 36 % (0-8); BASOPHILS PERCENT MAN 0 % (0-2); EOSINOPHILS PERCENT MAN 0 % (0-6); LYMPHOCYTES ABSOLUTE MAN 0.28 K/mm3 (0.84-5.20); LYMPHOCYTES PERCENT MAN 3 % (21-46); METAMYELOCYTE ABSOLUTE MAN 0.67 K/mm3 (0.00-0.00); METAMYELOCYTE PERCENT MAN 7 % (0-0); MONOCYTES ABSOLUTE MAN 0.77 K/mm3 (0.16-1.47); MONOCYTES PERCENT MAN 8 % (4-13); MYELOCYTE ABSOLUTE MAN 0.38 K/mm3 (0.00-0.00); MYELOCYTE PERCENT MAN 4 % (0-0); NEUTROPHILS ABSOLUTE MAN 7.52 K/mm3 (1.96-9.15); SEG NEUTROPHILS PERCENT MAN 42 % (41-73); TOTAL CELLS COUNTED 100
[2024-08-05] MEDS ORDERED: Aspirin 81 MG Chew PO ONE (01:18)
[2024-08-05] MEDS ORDERED: Clopidogrel Bisulfate 300 MG TABLET PO ONE (01:18)
[2024-08-05] MEDS ORDERED: Atorvastatin 40 MG Tab PO SCH (01:30)
[2024-08-05] MEDS ORDERED: Atorvastatin 40 MG Tab PT SCH (01:44)
[2024-08-05] MEDS ORDERED: Clopidogrel Bisulfate 75 MG Tab PT SCH (02:00)
[2024-08-05] MEDS ORDERED: Aspirin 81 MG Chew PT SCH (02:00)
[2024-08-05 02:21] LABS: Anti-Xa UFH, PHA Monitoring <0.10 IU/mL; International Normalized Ratio 1.19; Prothrombin Time Results 12.6 Sec (9.7-11.5)
[2024-08-05] MEDS ORDERED: Dose Adjust by Pharmacy XX STA ×3 (02:23→15:27)
[2024-08-05] MEDS ORDERED: Heparin Sodium 5000 Units/ML 1ML MDV IV ONE (02:25)
[2024-08-05] MEDS ORDERED: Heparin Sodium,Porcine/0.5 NS 500 ML IV SCH (02:25)
--- NOTE | 2024-08-05 04:26 | NUR ---
NURSES NOTE APPROX AT 2310 A CALL CAME IN FROM UCAN HERMINIO IN PCU SAYING THAT PT HAD SOME ST ELEVATIONS ON TELEMETRY. WENT IN TO CHECK ON PATIENT THAT WAS SLEEPING. WOKE TO VERBAL. I ASKED HIM IF HE WAS HAVING ANY CP OR PRESSURE PATIENT SAID "NO JUST PAIN RIGHT HERE" HE TOUCHED HIS MID TO UPPER ABD. UCAN WAS STILL ON VOCERA AND HEARD PATIENTS RESPONSES OF BEING ASYMPTOMATIC. SKIN WAS WARM AND DRY. I MADE BATTERY TECHNICIAN AWARE AND WE WENT TO DO EKG. WALKED IN AND NOTICED PATIENT PULLED OUT HIS IV THAT WAS IN HIS LEFT HAND. HE SAID HE WAS LOOKING FOR THE CALL LIGHT ANY PULLING ANY THING HE COULD GET HIS HANDS ON. MODERATE AMT OF BLEEDING NOTED. SITE COVERED WITH GAUZE AND SECURED WITH COBAN. EKG SHOWED CRITICAL CALL WAS MADE TO HOSPITALIST DR. VAZQUEZ WHO CAME TO SEE PT. NEW 20G IV PLACED ABOVE RT AC. BLOOD DRAWN AND GIVEN TO LAB. ICU AND ORGANISATION AND METHODS ANALYST'S HERE. MEDICATED PT WITH 25MCG FENTANYL DR. VAZUQEZ AWARE THAT I GAVE HIM HALF OF WHAT HE ORDERED HIM FOR HIS ABDOMINAL PAIN. 0012 HOSPITALIST IS TALKING ABOUT EITHER TRANSFERRING PT TO ICU OR PT IS GOING TO SOCIOLOGY TEACHER. 0028 PT TRANSFERED TO ICU 5 REPORT TO PLANT MAINTENANCE WORKER TAKING PT AT BEDSIDE. PATIENT WAS VERY SLEEPY ALREADY.
[2024-08-05 05:44] LABS: Hematocrit 44.4 % (37.0-53.0); Hemoglobin 15.3 g/dL (13.5-17.5); Mean Corpuscular HGB Conc 34.5 g/dL (31.5-36.5); Mean Corpuscular Volume 90 fL (80-100); Mean Platelet Volume 9.5 fL (9.1-12.4); Platelet Count 174 K/mm3 (150-400); RDW Coefficient Variation 14.3 % (11.7-14.2); Red Blood Cell Count 4.94 M/mm3 (4.30-5.90); White Blood Cell Count 9.54 K/mm3 (4.00-11.30)
[2024-08-05 05:56] LABS: BAND PERCENT MAN 31 % (0-8); BASOPHILS PERCENT MAN 0 % (0-2); EOSINOPHILS PERCENT MAN 0 % (0-6); LYMPHOCYTES ABSOLUTE MAN 0.38 K/mm3 (0.84-5.20); LYMPHOCYTES PERCENT MAN 4 % (21-46); METAMYELOCYTE ABSOLUTE MAN 0.38 K/mm3 (0.00-0.00); METAMYELOCYTE PERCENT MAN 4 % (0-0); MONOCYTES ABSOLUTE MAN 0.66 K/mm3 (0.16-1.47); MONOCYTES PERCENT MAN 7 % (4-13); MYELOCYTE ABSOLUTE MAN 0.38 K/mm3 (0.00-0.00); MYELOCYTE PERCENT MAN 4 % (0-0); NEUTROPHILS ABSOLUTE MAN 7.72 K/mm3 (1.96-9.15); SEG NEUTROPHILS PERCENT MAN 50 % (41-73); TOTAL CELLS COUNTED 100
[2024-08-05 06:01] LABS: Albumin, Blood 2.5 g/dL (3.4-5.0); Albumin/Globulin Ratio 0.7 (0.8-1.8); Bilirubin, Total 1.3 mg/dL (0.1-1.0); Bun/Creatinine Ratio 36.4 (12.0-20.0); Calcium, Blood 8.1 mg/dL (8.5-10.1); Creatinine, Blood 1.18 mg/dL (0.60-1.20); Globulin, Blood 3.6 g/dL (2.2-4.0); Potassium, Blood 4.6 mmol/L (3.5-5.5); Total Protein, Blood 6.1 g/dL (6.4-8.2)
--- NOTE | 2024-08-05 06:28 | NUR ---
SHIFT SUMMARY: ASSUMED CARE OF PT 08/05/24 AT 0030, UPON PTS ARRIVAL TO ICU 5 FROM SURGICAL FLOOR. PT TRANSFERRED VIA BED BY RN NEONATAL. PT A&O X4, ABLE TO MAKE NEEDS KNOWN AND FOLLOWS COMMANDS APPROPRIATELY. PT GIVEN FENTANYL BY RN SHORTLY BEFORE ARRIVAL TO ROOM, SEE EMAR. PT BECAME SLEEPY, AROUSING EASILY TO VOICE. PT DENIES CHEST PAIN OR SOB. HR IN 90S. SBP 100-120S. PT ARRIVED W/ NC AT 2LPM. O2 TITRATED TO 5LPM PT WAS DESATURATING INTO 80S. PT REMAINS ON NC AT 5LPM W/ SATS >90%. PT IS A MOUTH BREATHER AND WILL DESAT DURING SLEEP INTO 80S. LUNG ROTH CLEAR T/O. ABDOMEN DISTENDED,FIRM. PT HAS NG TUBE WITH MAROOON-COLORED DRAINAGE FLOWING INTO CANISTER. NG TUBE CONNECTED TO LOW FLOW INTERMITTENT SUCTION. PT WAS NOT NAUSEAUS ON ARRIVAL TO ICU BUT BECAME NAUSEAUS DURING SHIFT, ZOFRAN GIVEN PER ORDERS. PT ABLE TO USE URINAL WITH MINIMAL ASSISTANCE. PT HAS BILAT PERIPHERAL IVS IN RAC AND VANDANA. INFUSING IS HEPARIN 15UNITS/KG/HR, LR AT 150ML/HR, AND PROTONIX AT 8MG/HR. PT FAMILY AT BEDSIDE FOR SOME TIME DURING SHIFT. CONVERSATION WAS HAD BETWEEN FAMILY AND RIGHT OF WAY AGENT ABOUT PLAN FOR INTERVENTIONS. FAMILY AND PATIENT AGREEABLE TO MEDICAL MANAGEMENT AT THIS POINT.
--- NOTE | 2024-08-05 07:00 | NUR ---
ASSUMED CARE OF PT AT APPROXIMATELY 0700 RECIEVED BEDSIDE REPORT FROM JOON DECKER. PT IS A&0X4, ABLE TO MAKE NEEDS KNOWN AND ABLE TO FOLLOW COMMANDS APPROPRIATELY. CONTINUOUS CARDIAC MONTIORING IN PLACE WITH HR IN THE 90'S. SBP STABLE. PT IS ON 5LPM VIA NC. NG TUBE TO LIS WITH DARK REDISH BROWNISH DRAINAGE. NO ACUTE NEEDS AT THIS MOMENT. SEE SHIFT ASSESSMENT FOR DETAILS.
[2024-08-05] MEDS ORDERED: Magnesium Hydroxide Conc 10 ML UDC PO PRN (08:10)
[2024-08-05] MEDS ORDERED: Losartan Potassium 50 MG Tab PO SCH (09:00)
[2024-08-05] MEDS ORDERED: Insulin Regular 100 UNIT/ML 10ML Vial SC SCH (12:00)
[2024-08-05 12:39] LABS: Hematocrit 42.2 % (37.0-53.0); Hemoglobin 14.3 g/dL (13.5-17.5)
[2024-08-05 12:58] LABS: Bun/Creatinine Ratio 35.7 (12.0-20.0); Calcium, Blood 8.2 mg/dL (8.5-10.1); Creatinine, Blood 1.26 mg/dL (0.60-1.20); Potassium, Blood 4.6 mmol/L (3.5-5.5)
[2024-08-05 16:48] LABS: Hematocrit 41.9 % (37.0-53.0); Hemoglobin 14.2 g/dL (13.5-17.5); Mean Corpuscular HGB 30.6 pg (26.0-34.0); Mean Corpuscular HGB Conc 33.9 g/dL (31.5-36.5); Mean Corpuscular Volume 90 fL (80-100); Mean Platelet Volume 10.1 fL (9.1-12.4); Platelet Count 167 K/mm3 (150-400); RDW Coefficient Variation 14.4 % (11.7-14.2); RDW Standard Deviation 47.5 fL (35.1-46.3); Red Blood Cell Count 4.64 M/mm3 (4.30-5.90); White Blood Cell Count 10.14 K/mm3 (4.00-11.30)
[2024-08-05 17:04] LABS: Albumin, Blood 2.4 g/dL (3.4-5.0); Anion Gap 9 mmol/L (3-11); Blood Urea Nitrogen 45 mg/dL (8-24); Bun/Creatinine Ratio 37.8 (12.0-20.0); CO2, Blood 25 mmol/L (21-32); Calcium, Blood 7.6 mg/dL (8.5-10.1); Chloride, Blood 107 mmol/L (98-108); Creatinine, Blood 1.19 mg/dL (0.60-1.20); Glomerular Filtration Rate 60 (60-); Glucose, Blood 177 mg/dL (70-99); Phosphorus, Blood 2.8 mg/dL (2.5-4.9); Potassium, Blood 4.6 mmol/L (3.5-5.5); Sodium, Blood 136 mmol/L (136-145)
[2024-08-05 17:21] LABS: BAND PERCENT MAN 40 % (0-8); BASOPHILS PERCENT MAN 0 % (0-2); EOSINOPHILS PERCENT MAN 1 % (0-6); LYMPHOCYTES PERCENT MAN 6 % (21-46); MONOCYTES PERCENT MAN 5 % (4-13); MYELOCYTE PERCENT MAN 1 % (0-0); NEUTROPHILS ABSOLUTE MAN 8.82 K/mm3 (1.96-9.15); SEG NEUTROPHILS PERCENT MAN 47 % (41-73); TOTAL CELLS COUNTED 100
--- NOTE | 2024-08-05 17:54 | NUR ---
END OF SHIFT PT IS A&O X4, SOMETIMES FORGETFUL. PT IS ABLE TO FOLLOW COMMANDS AND MAKE NEEDS KNOWN. CONTINUOUS MONTIORING IN PLACE, HR IN 90'S, SBP IS STABLE, ST ELEVATION IS KNOWN TO CARDIOLOGY. CARDIAC PO MEDS HELD DUE TO PT BEING NPO AND HIGH NG OUTPUT, CARDIOLOGY AWARE. PT IS ON 5LPM VIA NC WITH O2 SATURATIONS OF GREATER THAN 92%. NG OUTPUT IS RED/BROWN. PT INITALLY USED URINAL IN BED, LAST VOID WAS 0330. STRAIGHT CATH FOR VOLUME RETENTION GREATER THAN 600. Q6 BLADDER SCAN PLACED PER HOSPITALIST. LR RATE AT 100ML/HR. HEPARIN IS INFUSING AT 14 UNITS/KG/HR. PROTONIX DRIP INFUSING. WILL CONTINUE TO MONITOR, GIVE REPORT TO ONCOMING RN.
[2024-08-05] MEDS ORDERED: Clarify Drug Order XX ONE (21:40)
[2024-08-06] VITALS (75 sets, daily range): BP systolic 93–156; BP diastolic 47–112
[2024-08-06 03:25] LABS: Hematocrit 40.4 % (37.0-53.0); Mean Corpuscular HGB 30.9 pg (26.0-34.0); Mean Corpuscular HGB Conc 34.7 g/dL (31.5-36.5); Mean Corpuscular Volume 89 fL (80-100); Mean Platelet Volume 10.2 fL (9.1-12.4); Platelet Count 180 K/mm3 (150-400); RDW Coefficient Variation 14.5 % (11.7-14.2); RDW Standard Deviation 46.7 fL (35.1-46.3); Red Blood Cell Count 4.53 M/mm3 (4.30-5.90); White Blood Cell Count 10.43 K/mm3 (4.00-11.30)
[2024-08-06 03:51] LABS: Albumin, Blood 2.2 g/dL (3.4-5.0); Albumin/Globulin Ratio 0.6 (0.8-1.8); Bilirubin, Total 1.4 mg/dL (0.1-1.0); Bun/Creatinine Ratio 41.5 (12.0-20.0); Calcium, Blood 8.2 mg/dL (8.5-10.1); Creatinine, Blood 1.23 mg/dL (0.60-1.20); Potassium, Blood 5.3 mmol/L (3.5-5.5); Total Protein, Blood 6.2 g/dL (6.4-8.2)
[2024-08-06 04:13] LABS: BAND PERCENT MAN 21 % (0-8); BASOPHILS PERCENT MAN 0 % (0-2); EOSINOPHILS PERCENT MAN 0 % (0-6); LYMPHOCYTES ABSOLUTE MAN 0.41 K/mm3 (0.84-5.20); LYMPHOCYTES PERCENT MAN 4 % (21-46); METAMYELOCYTE PERCENT MAN 2 % (0-0); MONOCYTES ABSOLUTE MAN 0.41 K/mm3 (0.16-1.47); MONOCYTES PERCENT MAN 4 % (4-13); NEUTROPHILS ABSOLUTE MAN 9.38 K/mm3 (1.96-9.15); SEG NEUTROPHILS PERCENT MAN 69 % (41-73); TOTAL CELLS COUNTED 100
[2024-08-06] MEDS ORDERED: Clarify Drug Order XX ONE (04:20)
--- NOTE | 2024-08-06 05:34 | NUR ---
SHIFT SUMMARY PATIENT SLEPT OFF AND ON THROUGH SHIFT. PATEITN WOULD PRESS CALL LIGHT AND WHEN NURSE WOULD GO IN AND ASK WHAT PATIENT NEEDED PATEINT WOULD START TO TALK TO NURSE AND THEN FALL ASLEEP. PATIENT PRESSES CALL LIGHT A LOT OF SWABS FOR MOUTH. NURSE GAVE PATEINT CONTROLS FOR BED SO PATIENT COULD ADJUST BED FOR COMFORT. A&O X3, SBP 110-120'S HR 100'S. PATIENT ON 5L OF O2 VIA NC. PATIENT COULD URINATE O SHIFT. NURSE BLADDER SCANNED Q6 HOURS PER ORDER, STRAIGHT CATHED PATEINT AND REMOVED 425MLS OF TEA COLORED URINE. PATIENT SAYS " I CAN'T FEEL WHEN I HAVE TO GO". PATEINT HAS OG TUBE IN LEFT NOSTRIL MARKED AND SECURED. HEPARIN RUNNING @ 14U, LR RUNNING @100MLS, AND PROTONIX RUNNING @8. 20G IV IN LEFT AC AND 20G IV IN RIGHT AC. CALL LIGHT WITHIN REACH.
[2024-08-06] MEDS ORDERED: Lactated Ringer's 1,000 ML IV SCH (06:40)
[2024-08-06 07:23] LABS: Magnesium, Blood 2.2 mg/dL (1.6-2.4); Phosphorus, Blood 2.6 mg/dL (2.5-4.9)
[2024-08-06] MEDS ORDERED: Aspirin 81 MG Chew PT SCH (09:00)
[2024-08-06] MEDS ORDERED: Clopidogrel Bisulfate 75 MG Tab PT SCH (09:00)
[2024-08-06] MEDS ORDERED: Pantoprazole Sodium 40 MG Injection IV SCH (09:10)
[2024-08-06] MEDS ORDERED: Dose Adjust by Pharmacy XX STA (09:41)
[2024-08-06] MEDS ORDERED: Heparin Sodium 5000 Units/ML 1ML MDV IV ONE (09:45)
[2024-08-06] MEDS ORDERED: NS 250 ML IV PRN (11:30)
[2024-08-06] MEDS ORDERED: Ampicillin Sod/Sulbactam Sod 1.5 GM in NS 100 ML IV SCH (12:00)
[2024-08-06 12:25] LABS: Base Excess Venous -2.3 mmol/L; Bicarbonate Venous 22.5 mmol/L (24.0-30.0); PCO2 Venous 35.7 mmHg (38-42); pH Blood Venous 7.41 (7.34-7.37)
[2024-08-06] MEDS ORDERED: Heparin Sodium,Porcine 5,000 UNIT/0.5 ML SDV SC SCH (16:00)
--- NOTE | 2024-08-06 18:40 | NUR ---
Summary. No acute events this shift. Pt continues NPO, NG tube not cleared for use, hold PO meds for now, see nurse notify. Pt requiring varying amounts of 02 during shift, occasionally on oxymask up to 12 L/min. Currently using NC at 6 L/min, sats 92%. Veronica placed during shift for acute retention. See chart for further details.
--- NOTE | 2024-08-06 18:43 | NUR ---
Summary. Pt continues strict NPO, plan is for speech to see him tomorrow. No acute events this shift. Nicardepine titrated off this evening when IV BP medications administered. Nurse Practical phone at bedside. Oral care q4 during shift. See chart for further details.
[2024-08-06] MEDS ORDERED: Lactobacil 2-S.Thermo-Bifido 1 1 Cap PO SCH (21:00)
[2024-08-07] VITALS (48 sets, daily range): BP systolic 103–151; BP diastolic 59–99
[2024-08-07 03:44] LABS: Hematocrit 37.2 % (37.0-53.0); Hemoglobin 12.3 g/dL (13.5-17.5); Mean Corpuscular HGB Conc 33.1 g/dL (31.5-36.5); Mean Corpuscular Volume 91 fL (80-100); Mean Platelet Volume 10.2 fL (9.1-12.4); Platelet Count 164 K/mm3 (150-400); RDW Coefficient Variation 14.7 % (11.7-14.2); RDW Standard Deviation 49.5 fL (35.1-46.3)
[2024-08-07 04:03] LABS: Albumin, Blood 1.9 g/dL (3.4-5.0); Albumin/Globulin Ratio 0.5 (0.8-1.8); Bilirubin, Total 1.1 mg/dL (0.1-1.0); Bun/Creatinine Ratio 52.4 (12.0-20.0); Calcium, Blood 7.6 mg/dL (8.5-10.1); Creatinine, Blood 0.95 mg/dL (0.60-1.20); Globulin, Blood 3.7 g/dL (2.2-4.0); Potassium, Blood 3.9 mmol/L (3.5-5.5); Total Protein, Blood 5.6 g/dL (6.4-8.2)
[2024-08-07 04:04] LABS: BAND PERCENT MAN 19 % (0-8); BASOPHILS PERCENT MAN 0 % (0-2); EOSINOPHILS PERCENT MAN 0 % (0-6); LYMPHOCYTES ABSOLUTE MAN 0.58 K/mm3 (0.84-5.20); LYMPHOCYTES PERCENT MAN 5 % (21-46); MONOCYTES ABSOLUTE MAN 0.58 K/mm3 (0.16-1.47); MONOCYTES PERCENT MAN 5 % (4-13); NEUTROPHILS ABSOLUTE MAN 10.53 K/mm3 (1.96-9.15); SEG NEUTROPHILS PERCENT MAN 71 % (41-73); TOTAL CELLS COUNTED 100
--- NOTE | 2024-08-07 05:55 | NUR ---
SHIFT SUMMARY PATIENT SLEPT MOST OF SHIFT. NURSE HELPED HIM TAKE OUT HEARING AID FROM LEFT EAR AND PUT ON GREENS KEEPER IN ROOM. PATIENT CALLED A FEW TIMES FOR MOUTH SWABS. PATIENT CONTINUED THROUGH SHIFT FROM SINUS TACH TO AFIB. PATIENT IS A&O MOST OF TIME BUT IS FORGETFUL ABOUT THINGS. SBP 115-120'S AND HR 100-110. PATIENT IS NPO BUT HAS A VERY DRY MOUTH AND OFTEN ASK FOR WATER SWABS. PATEINT HAS ECHEVARRIA DRAINING TO GRAVITY, TEA COLORED URINE. PATIENT HAS RIGHT AC 20G AND LEFT AC 20G. LR INFUSING @125MLS AND TKO INFUSING @10MLS. PATIENT IS ABLE AND DOES USE CALL LIGHT. CALL LIGHT WITHIN REACH.
--- NOTE | 2024-08-07 08:30 | NUR ---
[place] of care: Alert, oriented, pleasant. In Afib in low 100s. Blood pressure 132/76. On both 6L NC & 9L oximask with O2 sats only 90-91%. NGT to LIS with green/brown output. Stict NPO. Veronica cath in place & secured to thigh draining clear yellow urine. PIV x2. Will continue to monitor.
[2024-08-07] MEDS ORDERED: Lactated Ringer's 1,000 ML IV SCH (15:00)
[2024-08-07] MEDS ORDERED: Metoprolol Tartrate 1 MG/ML 5 ML VIAL IV PRN (15:00)
--- NOTE | 2024-08-07 17:28 | NUR ---
PALLIATIVE CARE FAMILY VISIT: 1045 MET WITH SON AND DAUGHTER NANCY. THEY HAD QUESTIONS ABOUT HOSPICE CARE. DISCUSSED THE BENEFITS HOSPICE PROVIDES AND THE NEED FOR A QUALIFYING DIAGNOSIS. REVIEWED PT H&P, LABS, PRIOR ADMISSIONS, SKIN ASSESSMENT, WEIGHTS, RADIOLOGY REPORTS. NO CRITERIA FOR ADMISSION TO HOSPICE IDENTIFIED AT THIS TIME. DISCUSSED WITH NANCY. ALSO DISCUSSED CONCERNS THAT CURRENT HEART ATTACK MAY REVEAL CHANGES THAT MAY QUALIFY PAT FOR HOSPICE AND WE WILL HAVE TO SEE WHAT FUTURE TEST RESULTS MAY REVEAL. NANCY V/U. GAVE INFORMATION BROCHURES ABOUT HOSPICE AGENCIES AVAILABLE LOCALLY. 1330 MET WITH PT BRIEFLY AFTER HE CAME BACK FROM SB FOLLOW THROUGH. PT IS GROGGY, HE AWAKENS TO VERBAL STIMULI BUT FALLS ASLEEP DURING CONVERSATION. WILL ATTEMPT VISIT WITH HIM AGAIN TOMORROW. [address] VELASQUEZ ON ABOVE FINDINGS AND CONVERSATION WITH FAMILY.
--- NOTE | 2024-08-07 17:39 | NUR ---
Shift summary: Remains alert & oriented during shift. In AFib most of the day up to 130s, but converted to NSR around 1500 & has been in the 80-90s since then. SBP for most part in 115 range. Increased oxygen requirements this morning, currently on HFNC 40L/90%, RR 25-30 & oxygen saturations 89-91% but does not complain of any dyspnea. Lung sounds are clear. Having some mild abdominal discomfort this evening, is passing gas now, belly very distended. NGT clamped for much of the day for SBFT but placed back to suction & had a total of 2700 cc of brown output. Vreonica cath secure in place with 700 cc of jamila clear output. Remains NPO. LR infusing at 100 cc/hr. PIV x2. Family & patient updated throughout the day. Orders for PCU, awaiting bed placement there. Will continue to monitor.
[2024-08-08] VITALS (15 sets, daily range): BP systolic 81–148; BP diastolic 58–75
[2024-08-08 04:06] LABS: Hematocrit 39.2 % (37.0-53.0); Hemoglobin 13.3 g/dL (13.5-17.5); LYMPHOCYTES ABSOLUTE AUTO 0.31 K/mm3 (0.84-5.20); LYMPHOCYTES PERCENT AUTO 4 % (21-46); MONOCYTES ABSOLUTE AUTO 0.64 K/mm3 (0.16-1.47); MONOCYTES PERCENT AUTO 7 % (4-13); Mean Corpuscular HGB 31.1 pg (26.0-34.0); Mean Corpuscular HGB Conc 33.9 g/dL (31.5-36.5); Mean Corpuscular Volume 92 fL (80-100); Mean Platelet Volume 10.4 fL (9.1-12.4); NRBC ABSOLUTE 0.02 K/mm3 (0.00-0.02); NRBC Auto 0.2 /100 WBC (0.0-0.2); Platelet Count 160 K/mm3 (150-400); RDW Coefficient Variation 15.1 % (11.7-14.2); RDW Standard Deviation 50.4 fL (35.1-46.3); Red Blood Cell Count 4.28 M/mm3 (4.30-5.90); White Blood Cell Count 8.84 K/mm3 (4.00-11.30)
[2024-08-08 04:23] LABS: BASOPHILS ABSOLUTE AUTO 0.01 K/mm3 (0.00-0.23); BASOPHILS PERCENT AUTO 0 % (0-2); EOSINOPHILS PERCENT AUTO 0 % (0-6); IMMATURE GRAN ABSOLUTE AUTO 0.02 K/mm3 (0.00-0.10); IMMATURE GRAN PERCENT AUTO 0 % (0-1); NEUTROPHILS ABSOLUTE AUTO 7.86 K/mm3 (1.96-9.15); NEUTROPHILS PERCENT AUTO 89 % (41-73)
[2024-08-08 04:26] LABS: Albumin, Blood 1.7 g/dL (3.4-5.0); Albumin/Globulin Ratio 0.5 (0.8-1.8); Bilirubin, Total 1.3 mg/dL (0.1-1.0); Bun/Creatinine Ratio 53.1 (12.0-20.0); Calcium, Blood 7.7 mg/dL (8.5-10.1); Creatinine, Blood 0.96 mg/dL (0.60-1.20); Globulin, Blood 3.7 g/dL (2.2-4.0); Potassium, Blood 4.4 mmol/L (3.5-5.5); Total Protein, Blood 5.4 g/dL (6.4-8.2)
[2024-08-08 05:11] LABS: BAND PERCENT MAN 3 % (0-8); BASOPHILS PERCENT MAN 0 % (0-2); EOSINOPHILS PERCENT MAN 0 % (0-6); LYMPHOCYTES ABSOLUTE MAN 0.35 K/mm3 (0.84-5.20); LYMPHOCYTES PERCENT MAN 4 % (21-46); MONOCYTES ABSOLUTE MAN 0.61 K/mm3 (0.16-1.47); MONOCYTES PERCENT MAN 7 % (4-13); NEUTROPHILS ABSOLUTE MAN 7.86 K/mm3 (1.96-9.15); SEG NEUTROPHILS PERCENT MAN 86 % (41-73); TOTAL CELLS COUNTED 100
--- NOTE | 2024-08-08 05:35 | NUR ---
SHIFT SUMMARY PATEINT SLEPT MOST OF NIGHT ONLY WAKING Q 2HOURS TO ASK FOR WATER SWABS. A&O X3 DOES SAY STRANGE THINGS WHEN JUST WAKING UP THOUGH. LUNGS CLEAR BILATERALLY. SBP 120-130'S, HR IN THE 80'S AND HAS BEEN IN SINUS RHYTHM THROUGH SHIFT. PATIENT IS NPO BUT OFTEN ASK FOR SWABS AND THE SUCTION SO HE CAN SUCTION HIS MOUTH WHEN DONE. HAS ECHEVARRIA DRAINING TO GRAVITY URINE IS TEA IN COLOR. HAS LEFT AC 20G IV AND RIGHT AC 20G IV. LR INFUSING @100MLS AND NS INFUSING AT TKO, PATIENT HAS NG HOOKED TO SUCTION ON LOW INTERMITTENT TOTAL OUT FOR SHIFT 1900MLS. PATIENT USES CALL LIGHT AND CALL LIGHT WITHIN REACH.
[2024-08-08] MEDS ORDERED: Lactated Ringer's 1,000 ML IV SCH (07:20)
[2024-08-08 08:24] LABS: Base Excess Venous 1.5 mmol/L; Bicarbonate Venous 25.7 mmol/L (24.0-30.0); PCO2 Venous 38.1 mmHg (38-42); pH Blood Venous 7.44 (7.34-7.37)
[2024-08-08] MEDS ORDERED: MethylPREDNISolone Sod Succ 125 MG Vial IV SCH (12:00)
--- NOTE | 2024-08-08 17:23 | NUR ---
PT BROUGHT TO PCU FROM ICU @ APPROX. 1330 ON 40L75% HFNC. A&Ox4 ON 40L55% HFNC RESTING IN BED W/DAUGHTER @ BEDSIDE. LR RUNNING PER EMAR. ECHEVARRIA IN PLACE WITH NAGA URINE DRAINING AND NG TUBE IN PLACE TO LIWS.
[2024-08-08] MEDS ORDERED: Ampicillin Sod/Sulbactam Sod 3 GM in NS 100 ML IV SCH (18:00)
[2024-08-09] VITALS (7 sets, daily range): BP systolic 138–177; BP diastolic 64–89
[2024-08-09 04:15] LABS: Hematocrit 36.9 % (37.0-53.0); Hemoglobin 12.5 g/dL (13.5-17.5); Mean Corpuscular HGB 30.9 pg (26.0-34.0); Mean Corpuscular HGB Conc 33.9 g/dL (31.5-36.5); Mean Corpuscular Volume 91 fL (80-100); Mean Platelet Volume 10.6 fL (9.1-12.4); Platelet Count 184 K/mm3 (150-400); RDW Coefficient Variation 15.4 % (11.7-14.2); RDW Standard Deviation 51.4 fL (35.1-46.3); Red Blood Cell Count 4.05 M/mm3 (4.30-5.90); White Blood Cell Count 11.17 K/mm3 (4.00-11.30)
[2024-08-09 04:37] LABS: Albumin, Blood 1.9 g/dL (3.4-5.0); Albumin/Globulin Ratio 0.5 (0.8-1.8); Bun/Creatinine Ratio 66.4 (12.0-20.0); Calcium, Blood 8.2 mg/dL (8.5-10.1); Creatinine, Blood 0.75 mg/dL (0.60-1.20); Globulin, Blood 3.9 g/dL (2.2-4.0); Potassium, Blood 3.6 mmol/L (3.5-5.5); Total Protein, Blood 5.8 g/dL (6.4-8.2)
[2024-08-09 04:39] LABS: BASOPHILS PERCENT MAN 0 % (0-2); EOSINOPHILS PERCENT MAN 0 % (0-6); LYMPHOCYTES ABSOLUTE MAN 0.22 K/mm3 (0.84-5.20); LYMPHOCYTES PERCENT MAN 2 % (21-46); MONOCYTES ABSOLUTE MAN 0.22 K/mm3 (0.16-1.47); MONOCYTES PERCENT MAN 2 % (4-13); NEUTROPHILS ABSOLUTE MAN 10.72 K/mm3 (1.96-9.15); SEG NEUTROPHILS PERCENT MAN 96 % (41-73); TOTAL CELLS COUNTED 100
--- NOTE | 2024-08-09 05:59 | NUR ---
SHIFT SUMMARY PATIENT ALERT, ORIENTED x3-4. ABLE TO MAKE NEEDS KNOWN TO STAFF. PATIENT CONTINUOUSLY REQUESTING WATER AND MOUTH SWABS. PATIENT EDUCATED THAT HE IS AT RISK FOR ASPIRATING WELL NPO D/T SBO. PATIENT PROVIDED WITH MOUTH SWABS WITH MINIMAL WATER. PATIENT AGITATED AT TIMES D/T NPO STATUS. BP STABLE. TELE READING SR 70s DURING THE NIGHT. PATIENT ON 40L 55% FIO2, O2 SATS LOW TO MID 90s. PATIENT DESATS WHILE USING MOUTH SWABS, USING SUCTION OR PROLONGED CONVERSATION. NGT TO LOW INTERMITTENT SUCTION, DARK GREEN/BROWN LIQUID OUT. ECHEVARRIA IN PLACE DRAINING YELLOW URINE TO GRAVITY. PATIENT TURNING SELF WELL REQUESTING FREQUENT TURNS. NO OTHER CHANGES DURING THE NIGHT, WILL REPORT TO DAY SHIFT RN.
[2024-08-09] MEDS ORDERED: Potassium Chl 20MEQ/Water100ML 100 ML IV STA (07:22)
[2024-08-09] MEDS ORDERED: Sodium Chloride 0.45% 1,000 ML IV SCH ×2 (08:00)
[2024-08-09] MEDS ORDERED: TPN Consult Notification XX ONE (08:15)
[2024-08-09] MEDS ORDERED: Misc. Injectable IV SCH (09:00)
[2024-08-09] MEDS ORDERED: Aa 4.25%/Calcium/Lytes/D5w 1,000 ML IV SCH (09:00)
[2024-08-09] MEDS ORDERED: Parenteral Electolytes 40 ML,Potassium Phosphate Dibasic 30 MM,Multivitamins 10 ML,ZINC... IV SCH (17:00)
--- NOTE | 2024-08-09 18:45 | NUR ---
A&Ox4 ON 40L52% AIRVO. HAS NGT TO LIWS W/BROWN OUTPUT AND ECHEVARRIA CATHETER IN PLACE DRAINING NAGA URINE. HE WORKED WITH PHYSICAL THERAPY TODAY AND DANGLED AT THE SIDE OF THE BED. PATIENT CURRENTLY HAS PPN AND 1/2 NS RUNNING PER EMAR. PATIENT FREQUENTLY REQUESTING MOUTH SWABS, HAS TO BE RE-EDUCATED ABOUT IMPORTANCE OF THEM NOT BEING TOO WET, SO NOT TO HINDER BOWEL HEALING.
[2024-08-09] MEDS ORDERED: Hyaluronidase 150 UNIT/ML Vial SC ONE (21:55)
--- NOTE | 2024-08-09 22:30 | NUR ---
UPDATE PPN INFILTRATED TO RAC. PPN STOPPED AT THIS TIME. PHARMACY CALLED AND RECOMMENDED AMPHADASE INJECTIONS AROUND INFILTRATION. RESIDENT CALLED, ORDERS RECEIVED. PPN THEN RESTARTED INTO DIFFERENT PERIPHERAL IV. POWERGLIDE PLACED FOR FLUIDS TO BE INFUSED INTO. PATIENT DENIES PAIN AT SITE.
[2024-08-10 04:18] VITALS: BP 152/72
[2024-08-10 04:38] LABS: BASOPHILS ABSOLUTE AUTO 0.05 K/mm3 (0.00-0.23); BASOPHILS PERCENT AUTO 0 % (0-2); EOSINOPHILS PERCENT AUTO 0 % (0-6); Hematocrit 37.7 % (37.0-53.0); IMMATURE GRAN ABSOLUTE AUTO 0.18 K/mm3 (0.00-0.10); IMMATURE GRAN PERCENT AUTO 1 % (0-1); LYMPHOCYTES ABSOLUTE AUTO 0.65 K/mm3 (0.84-5.20); LYMPHOCYTES PERCENT AUTO 4 % (21-46); MONOCYTES PERCENT AUTO 2 % (4-13); Mean Corpuscular HGB 30.8 pg (26.0-34.0); Mean Corpuscular HGB Conc 34.5 g/dL (31.5-36.5); Mean Corpuscular Volume 89 fL (80-100); Mean Platelet Volume 10.5 fL (9.1-12.4); NEUTROPHILS ABSOLUTE AUTO 16.82 K/mm3 (1.96-9.15); NEUTROPHILS PERCENT AUTO 93 % (41-73); Platelet Count 230 K/mm3 (150-400); RDW Coefficient Variation 15.4 % (11.7-14.2); RDW Standard Deviation 51.1 fL (35.1-46.3); Red Blood Cell Count 4.22 M/mm3 (4.30-5.90)
[2024-08-10 04:57] LABS: Alanine Aminotransfer (ALT/SGP 24 U/L (12-78); Albumin, Blood 1.9 g/dL (3.4-5.0); Albumin/Globulin Ratio 0.5 (0.8-1.8); Alk Phos 71 U/L (50-136); Anion Gap 10 mmol/L (3-11); Aspartate Aminotrans (AST/SGOT 29 U/L (12-37); Bilirubin, Total 0.7 mg/dL (0.1-1.0); Blood Urea Nitrogen 43 mg/dL (8-24); Bun/Creatinine Ratio 72.9 (12.0-20.0); CO2, Blood 27 mmol/L (21-32); Calcium, Blood 8.1 mg/dL (8.5-10.1); Chloride, Blood 117 mmol/L (98-108); Creatinine, Blood 0.59 mg/dL (0.60-1.20); Glomerular Filtration Rate 96 (60-); Glucose, Blood 366 mg/dL (70-99); Magnesium, Blood 2.7 mg/dL (1.6-2.4); Phosphorus, Blood 2.4 mg/dL (2.5-4.9); Potassium, Blood 3.9 mmol/L (3.5-5.5); Sodium, Blood 150 mmol/L (136-145); Total Protein, Blood 5.9 g/dL (6.4-8.2); Triglycerides 282 mg/dL (30-160)
--- NOTE | 2024-08-10 05:58 | NUR ---
SHIFT SUMMARY PATIENT ALERT, ORIENTED x4. ABLE TO MAKE NEEDS KNOWN. VERY [place]. BP STABLE. PATIENT REMAINED ON AIRVO DURING THE NIGHT, NO CHANGES TO SETTINGS, 40L 55% FIO2, SPO2 88-90s. ON TELE. SR 80s. PATIENT WITH NGT TO LIS, DARK GREEN OUTPUT IN SUCTION CANISTERS. BOWEL TONES SIGNIFICANTLY DECREASED AND ABDOMEN REMAINS DISTENDED. PATIENT USING JAUNKER FOR SECRETIONS WELL USING SUCTION SWABS FOR ORAL CARE. ECHEVARRIA IN PLACE, DARK URINE OUT. NO OTHER CHANGES DURING THE NIGHT, WILL REPORT TO DAY SHIFT RN.
[2024-08-10] MEDS ORDERED: Sodium Chloride 0.45% 1,000 ML IV SCH (07:00)
[2024-08-10 07:37] VITALS: BP 160/80
[2024-08-10] MEDS ORDERED: MethylPREDNISolone Sod Succ 125 MG Vial IV SCH (09:00)
[2024-08-10] MEDS ORDERED: TPN Consult Notification XX ONE (11:50)
[2024-08-10 12:26] VITALS: BP 177/86
[2024-08-10 15:14] VITALS: BP 168/82
--- NOTE | 2024-08-10 16:36 | NUR ---
A&Ox4 ON 3LNC W/NG TUBE TO LIWS DRAINING BROWN FLUID. HAS ECHEVARRIA IN PLACE DRAINING YELLOW URINE TO GRAVITY. HAD TO HAVE A NEW US GUIDED IV PLACED D/T PREVIOUS IV STARTING TO LEAK. PT HAS PPN AND 1/2 NS RUNNING PER EMAR. PT HAD CT OF ABD/PELVIS TODAY AND DR. REID CLEARED PT FOR SIPS OF WATER.
[2024-08-10] MEDS ORDERED: Parenteral Electolytes 40 ML,Potassium Phosphate Dibasic 30 MM,Multivitamins 10 ML,ZINC... IV SCH (17:00)
[2024-08-10] MEDS ORDERED: Insulin Glargine-Yfgn 100 Unit/mL 3 ML SYR SC SCH (18:00)
[2024-08-10 20:35] VITALS: BP 164/90
[2024-08-11 04:20] VITALS: BP 155/78
[2024-08-11 04:45] LABS: BASOPHILS ABSOLUTE AUTO 0.04 K/mm3 (0.00-0.23); BASOPHILS PERCENT AUTO 0 % (0-2); EOSINOPHILS PERCENT AUTO 0 % (0-6); Hemoglobin 12.5 g/dL (13.5-17.5); IMMATURE GRAN ABSOLUTE AUTO 0.22 K/mm3 (0.00-0.10); IMMATURE GRAN PERCENT AUTO 1 % (0-1); LYMPHOCYTES ABSOLUTE AUTO 0.67 K/mm3 (0.84-5.20); LYMPHOCYTES PERCENT AUTO 3 % (21-46); MONOCYTES ABSOLUTE AUTO 0.41 K/mm3 (0.16-1.47); MONOCYTES PERCENT AUTO 2 % (4-13); Mean Corpuscular HGB Conc 32.9 g/dL (31.5-36.5); Mean Corpuscular Volume 91 fL (80-100); Mean Platelet Volume 10.6 fL (9.1-12.4); NEUTROPHILS PERCENT AUTO 93 % (41-73); Platelet Count 225 K/mm3 (150-400); RDW Coefficient Variation 15.3 % (11.7-14.2); RDW Standard Deviation 51.4 fL (35.1-46.3); Red Blood Cell Count 4.17 M/mm3 (4.30-5.90); White Blood Cell Count 20.14 K/mm3 (4.00-11.30)
[2024-08-11 05:07] LABS: Albumin/Globulin Ratio 0.6 (0.8-1.8); Bilirubin, Total 0.7 mg/dL (0.1-1.0); Bun/Creatinine Ratio 60.8 (12.0-20.0); Calcium, Blood 8.1 mg/dL (8.5-10.1); Creatinine, Blood 0.56 mg/dL (0.60-1.20); Globulin, Blood 3.6 g/dL (2.2-4.0); Magnesium, Blood 2.6 mg/dL (1.6-2.4); Phosphorus, Blood 3.4 mg/dL (2.5-4.9); Potassium, Blood 4.7 mmol/L (3.5-5.5); Total Protein, Blood 5.6 g/dL (6.4-8.2)
--- NOTE | 2024-08-11 05:23 | NUR ---
SHIFT SUMMARY PT ALERT AND ORIENTED X4. ABLE TO MAKE NEEDS KNOWN. ON TELE, SR WITH 1ST DEGREE AV BLOCK 70S. BP MILDLY ELEVATED. 3L O2 VIA NC WITH SPO2 >95%. NGT TO LIS, LIGHT BROWN GASTRIC CONTENT IN CANISTER. PT REPORTS IMPROVED ABDOMINAL PAIN. ECHEVARRIA CATHETER IN PLACE, DRAINING YELLOW URINE TO GRAVITY. NO OTHER CHANGES.
[2024-08-11] MEDS ORDERED: Insulin Human Regular 100 UNIT/ML 10ML Vial SC SCH (08:00)
[2024-08-11 08:18] VITALS: BP 166/74
[2024-08-11] MEDS ORDERED: Pantoprazole Sodium 40 MG Injection IV SCH (09:00)
[2024-08-11 11:29] VITALS: BP 154/73
--- NOTE | 2024-08-11 13:05 | NUR ---
PT TRANSFERED TO ROOM FROM [facility] 01.
--- NOTE | 2024-08-11 13:31 | NUR ---
TRANSFER TO [facility] PT A&Ox4, CALLS AND COMMUNICATES NEEDS APPROPRIATELY. BP STABLE, SINUS 70's, DENIES CP/PRESSURE. SpO2> 92% 3L VIA NC, DENIES SOB. NG TUBE TO LOW INTERMITTENT SUCTION UPON ASSUMPTION OF CARE, CLAMPED PER MD FOR SBFT AND IS TO REMAIN CLAMPED UNTIL FOLLOW UP IMAGING IS REVIEWED. PT IS PASSING GAS, NO BM AT THIS TIME. DENIES ABD PAIN/TENDERNESS. ABD IS SOFT. ECHEVARRIA CATH IN PLACE, DRAINING YELLOW URINE TO GRAIVTY. REPORT GIVEN TO MEDICAL FLOOR RN. PT TRANSFERED WITH ALL PT BELONGINGS VIA HOSPITAL BED AT APPROXIMATELY 1310.
[2024-08-11 15:30] VITALS: BP 139/66
--- NOTE | 2024-08-11 16:52 | NUR ---
SHIFT SUMMARY PT TRANSFERED FROM PCU THIS AFTERNOON. PT IS A/OX4, BEDREST. ON TELE RUNNING NORMAL SINUS RYTHYM. ECHEVARRIA IN PLACE DRAINING CLEAR, YELLOW URINE. NG TUBE REMOVED THIS EVENING PER DR REID AND PT TRANSITIONING TO CLEAR LIQUIDS. PT IS INCONT OF BOWELS, ATTENDS IN PLACE AND CHANGED NEEDED. PT CALLS APPROPRIATELY USING THE CALL LIGHT.
[2024-08-11] MEDS ORDERED: Insulin Glargine-Yfgn 100 Unit/mL 3 ML SYR SC SCH (18:00)
[2024-08-11 19:17] VITALS: BP 135/66
[2024-08-11] MEDS ORDERED: Insulin Glargine-Yfgn 100 Unit/mL 3 ML SYR SC ONE (21:40)
--- NOTE | 2024-08-11 21:58 | NUR ---
2100 BG WAS 420 PT HS BG WAS 420, I CALLED THE HOSPITALIST WHO ORDERED 8U GLARGINE NOW X1
[2024-08-11 23:52] VITALS: BP 146/64
[2024-08-12 04:06] VITALS: BP 139/66
[2024-08-12 06:39] LABS: Magnesium, Blood 2.3 mg/dL (1.6-2.4)
[2024-08-12 06:40] LABS: Bun/Creatinine Ratio 58.4 (12.0-20.0); Calcium, Blood 7.1 mg/dL (8.5-10.1); Creatinine, Blood 0.57 mg/dL (0.60-1.20); Phosphorus, Blood 2.7 mg/dL (2.5-4.9); Potassium, Blood 3.6 mmol/L (3.5-5.5)
[2024-08-12 07:20] VITALS: BP 145/60
--- NOTE | 2024-08-12 07:36 | NUR ---
Shift Summary 4-6 loose incontinent voids. Pt rcving PPN as ordered, tolerating well. Blood sugar was elevated to 420 at the start of the shift, NOC hospitalist ordered an additional 8u of Glargine. This AM BG was down in the 200's. No c/o of pain or nausea. AOx4, cooperative with care.
[2024-08-12] MEDS ORDERED: Potassium Chloride 20 MEQ/15 ML UDC PO ONE (08:00)
[2024-08-12] MEDS ORDERED: Sodium Chloride 0.45% 1,000 ML IV SCH ×2 (08:00→09:00)
--- NOTE | 2024-08-12 10:36 | NUR ---
CALLED BATH STEWARD/STEWARDESS VIA [employer], HAD TO LEAVE MESSAGE.
[2024-08-12 11:14] VITALS: BP 149/65
[2024-08-12] MEDS ORDERED: Insulin Human Lispro 100 Units/ML 3ML Syringe SC SCH ×2 (11:30)
[2024-08-12 13:34] LABS: Bun/Creatinine Ratio 47.7 (12.0-20.0); Calcium, Blood 7.7 mg/dL (8.5-10.1); Creatinine, Blood 0.65 mg/dL (0.60-1.20); Potassium, Blood 3.8 mmol/L (3.5-5.5)
[2024-08-12 15:29] VITALS: BP 136/61
--- NOTE | 2024-08-12 16:29 | NUR ---
SHIFT SUMMARY PT AOX4, COOPERATIVE, ABLE TO MAKE NEEDS KNOWN. PT HAS BEEN BEDREST FOR DURATION OF SHIFT, BECOMING RESTLESS. MANAGER PROFESSIONAL DEVELOPMENT ORDER PLACED AND VOICEMAIL LEFT FOR THERAPY. DIET HAS BEEN ADVANCED TO FULL LIQUID DIET AND ADVANCE TOELRATED. NO COMPLAINTS OF PAIN, LITTLE STOMACH "UNEASINESS". ON 2L O2 CURRENTLY, SATTING AROUND 92% CURRENLTY. BED IN LWOETS POSITINO, CALL LIGHT WITHIN REACH.
--- NOTE | 2024-08-12 18:40 | NUR ---
TELE NOTIFIED THIS RN OF "5 BEAT RUN OF V TACH". ASSESSED PT AND IS ASYMPTOMATIC.
[2024-08-12 19:16] VITALS: BP 127/55
[2024-08-13 00:20] VITALS: BP 119/50
[2024-08-13 04:09] VITALS: BP 107/51
[2024-08-13 07:33] VITALS: BP 108/47
--- NOTE | 2024-08-13 07:48 | NUR ---
SHIFT SUMMARY AT START OF SHIFT, PT LYING IN BED. PT STATING HE IS UNCOMFORTABLE WITH BED POSITIONING. ADJUSTED BED. 1999, RT AT BEDSIDE PROVIDING BREATHING TX. PT READJUSTED IN BED. STATED HE WAS VERY COMFORTABLE NOW. 0030, LINUX ENGINEER CALLED. PT QTC .53. PT SLEEPING. CHECKING ON PT, HE STATES HE IS FELLING FINE, JUST SLEEPING. CALLED DR. CLAROS. ORDERED TO DC ANY PRN ANTIEMETICS. MEDICATIONS DC D AND CONTINUING TO MONITOR PT. THROUGHOUT SHIFT, PT ASKING TO BE ADJUSTED/SAT UP IN BED. APPROX 0430, IT IS NOTED THAT PT ECHEVARRIA IS NOT DRAINING MUCH FLUID IS BEING INFUSED/DRANK. PT BLADDER SCANNED. BLADDER SCANNER SHOWED NO RETENTION. PT STATES NO PAIN/DISCOMFORT IN BLADDER. ABDOMEN FIRM, SLIGHTLY DISTENDED. PASSED TO RESIDENT AND DAY SHIFT.
[2024-08-13 07:58] LABS: BASOPHILS ABSOLUTE AUTO 0.03 K/mm3 (0.00-0.23); BASOPHILS PERCENT AUTO 0 % (0-2); EOSINOPHILS ABSOLUTE AUTO 0.18 K/mm3 (0.00-0.68); EOSINOPHILS PERCENT AUTO 1 % (0-6); Hematocrit 35.8 % (37.0-53.0); Hemoglobin 11.6 g/dL (13.5-17.5); IMMATURE GRAN ABSOLUTE AUTO 0.43 K/mm3 (0.00-0.10); IMMATURE GRAN PERCENT AUTO 2 % (0-1); LYMPHOCYTES ABSOLUTE AUTO 1.23 K/mm3 (0.84-5.20); LYMPHOCYTES PERCENT AUTO 6 % (21-46); MONOCYTES ABSOLUTE AUTO 0.51 K/mm3 (0.16-1.47); MONOCYTES PERCENT AUTO 2 % (4-13); Mean Corpuscular HGB 30.5 pg (26.0-34.0); Mean Corpuscular HGB Conc 32.4 g/dL (31.5-36.5); Mean Corpuscular Volume 94 fL (80-100); Mean Platelet Volume 11.2 fL (9.1-12.4); NEUTROPHILS PERCENT AUTO 89 % (41-73); Platelet Count 174 K/mm3 (150-400); RDW Coefficient Variation 14.8 % (11.7-14.2); RDW Standard Deviation 51.2 fL (35.1-46.3); White Blood Cell Count 20.88 K/mm3 (4.00-11.30)
[2024-08-13 08:15] LABS: Albumin, Blood 1.6 g/dL (3.4-5.0); Albumin/Globulin Ratio 0.5 (0.8-1.8); Bilirubin, Total 0.7 mg/dL (0.1-1.0); Bun/Creatinine Ratio 44.7 (12.0-20.0); Calcium, Blood 7.2 mg/dL (8.5-10.1); Creatinine, Blood 0.58 mg/dL (0.60-1.20); Potassium, Blood 3.4 mmol/L (3.5-5.5); Total Protein, Blood 4.6 g/dL (6.4-8.2)
[2024-08-13 11:01] LABS: Campylobacter Sp Not Detected (NOT DETECT)
[2024-08-13 11:02] LABS: Adenovirus F 40/41 Not Detected (NOT DETECT); Astrovirus Not Detected (NOT DETECT); Cryptosporidium Not Detected (NOT DETECT); Cyclospora Cayetanensis Not Detected (NOT DETECT); E. Coli O157 Not Detected (NOT DETECT); Entamoeba Histolytica Not Detected (NOT DETECT); Enteroaggregative E. coli-EAEC Not Detected (NOT DETECT); Enteropathogenic E. coli-EPEC Detected (NOT DETECT); Enterotoxigenic E. coli-ETEC Not Detected (NOT DETECT); Giardia Lamblia Not Detected (NOT DETECT); Norovirus GI/GII Not Detected (NOT DETECT); Plesiomonas Shigelloides Not Detected (NOT DETECT); Rotavirus A Not Detected (NOT DETECT); Salmonella Sp Not Detected (NOT DETECT); Sapovirus Not Detected (NOT DETECT); Shiga Toxin-prod E. coli-STEC Not Detected (NOT DETECT); Shigella/Enteroin E. coli-EIEC Not Detected (NOT DETECT); Vibrio Cholerae Not Detected (NOT DETECT); Vibrio Sp Not Detected (NOT DETECT); Yersinia Enterocolitica Not Detected (NOT DETECT)
[2024-08-13 12:17] VITALS: BP 116/53
[2024-08-13] MEDS ORDERED: Azithromycin 250 MG Tab PO ONE (13:10)
[2024-08-13 15:26] VITALS: BP 113/55
--- NOTE | 2024-08-13 16:21 | NUR ---
SHIFT SUMMARY PT AOX4, COOPERATIVE, ABLE TO MAKE NEEDS KNOWN. PT HAS BEEN BEDREST FOR DURATION OF SHIFT, AUTOMATIC TRIMMING SEWER ORDERS PLACED. PT STILL ON 2L O2 SATTING ABOUT 92 TO 95%. INFORMED ABOUT POSITIVE FLUID INTAKE AND ALITTLE OUTPUT. NS DC'D THIS AM. CHEST XRAY PERFORMED. PT ON CONTACT ISOLATION FOR ECOLI IN STOOL. NO COMPLAINTS OF PAIN THIS SHIFT. BED IN LOWEST POSITION, CALL LIGHT WITHIN REACH.
[2024-08-13] MEDS ORDERED: Insulin Glargine-Yfgn 100 Unit/mL 3 ML SYR SC SCH (18:00)
[2024-08-13 19:48] VITALS: BP 131/61
[2024-08-14 00:13] VITALS: BP 118/52
[2024-08-14 04:05] VITALS: BP 113/46
[2024-08-14] MEDS ORDERED: Enoxaparin 40 MG/0.4 ML SYR SC SCH (07:00)
[2024-08-14 07:46] VITALS: BP 107/41
--- NOTE | 2024-08-14 07:53 | NUR ---
SHIFT SUMMARY PT TESTED POSITIVE FOR E.COLI DURING DAY SHIFT AND WAS PLACED ON CONTACT ENTERIC PRECAUTIONS. PT HAS BEEN SLEEPING MOST OF NIGHT, BUT WAKES FOR MEDICATION PASSES AND REPOSITIONING. PT CALLS APPROPRIATELY AND MAKES NEEDS KNOWN. CALL LIGHT IN REACH. PT HAS BEEN PLEASANT AND COOPERATIVE WITH CARE.
[2024-08-14 09:27] LABS: BASOPHILS ABSOLUTE AUTO 0.03 K/mm3 (0.00-0.23); BASOPHILS PERCENT AUTO 0 % (0-2); EOSINOPHILS PERCENT AUTO 1 % (0-6); Hematocrit 31.4 % (37.0-53.0); Hemoglobin 10.3 g/dL (13.5-17.5); IMMATURE GRAN ABSOLUTE AUTO 0.34 K/mm3 (0.00-0.10); IMMATURE GRAN PERCENT AUTO 2 % (0-1); LYMPHOCYTES ABSOLUTE AUTO 1.26 K/mm3 (0.84-5.20); LYMPHOCYTES PERCENT AUTO 6 % (21-46); MONOCYTES ABSOLUTE AUTO 0.77 K/mm3 (0.16-1.47); MONOCYTES PERCENT AUTO 4 % (4-13); Mean Corpuscular HGB 30.5 pg (26.0-34.0); Mean Corpuscular HGB Conc 32.8 g/dL (31.5-36.5); Mean Corpuscular Volume 93 fL (80-100); Mean Platelet Volume 10.8 fL (9.1-12.4); NEUTROPHILS ABSOLUTE AUTO 18.36 K/mm3 (1.96-9.15); NEUTROPHILS PERCENT AUTO 88 % (41-73); Platelet Count 203 K/mm3 (150-400); RDW Coefficient Variation 14.6 % (11.7-14.2); RDW Standard Deviation 49.6 fL (35.1-46.3); Red Blood Cell Count 3.38 M/mm3 (4.30-5.90); White Blood Cell Count 20.96 K/mm3 (4.00-11.30)
[2024-08-14 09:52] LABS: Albumin, Blood 1.5 g/dL (3.4-5.0); Albumin/Globulin Ratio 0.5 (0.8-1.8); Bilirubin, Total 0.9 mg/dL (0.1-1.0); Bun/Creatinine Ratio 35.9 (12.0-20.0); Calcium, Blood 7.1 mg/dL (8.5-10.1); Creatinine, Blood 0.7 mg/dL (0.60-1.20); Globulin, Blood 3.3 g/dL (2.2-4.0); Potassium, Blood 3.3 mmol/L (3.5-5.5); Total Protein, Blood 4.8 g/dL (6.4-8.2)
[2024-08-14 11:17] VITALS: BP 111/42
--- NOTE | 2024-08-14 12:42 | NUR ---
1222: INFORMED DR. VELASQUEZ ABOUT SWELLING ON PT'S SCROTUM AND O2 INCREASED FROM 2LNC TO 4LNC. NO NEW ORDER.
[2024-08-14] MEDS ORDERED: Potassium Chloride 20 MEQ TabCR PO ONE (13:00)
[2024-08-14 14:33] LABS: Source, Urine Foley catheter
[2024-08-14 14:43] LABS: Appearance, Urine Hazy (Clear); Bilirubin, Urine Neg (Neg); Blood, Urine 4+ (Neg); Color, Urine Yellow (P-Yellow); Glucose Qualitative, Urine 2+ (Neg); Ketones, Urine Neg (Neg); Leukocyte Esterase, Urine Neg (Neg); Nitrite, Urine Neg (Neg); Protein, Urine 3+ (Neg); Urobilinogen, Urine NORM (Normal)
[2024-08-14 15:04] LABS: White Blood Cells, Urine 0-2 /hpf (0-5)
[2024-08-14 15:05] LABS: Amorphous Light (0-Heavy); Bacteria Many /hpf; Squamous Epithelial Cells Rare /hpf (Few)
[2024-08-14 15:34] VITALS: BP 120/50
[2024-08-14] MEDS ORDERED: Amylase/Lipase/Protease DR 20,000 PO SCH (17:30)
[2024-08-14] MEDS ORDERED: CefTRIAXone Sodium 2,000 MG in NS 100 ML IV SCH (18:00)
--- NOTE | 2024-08-14 18:12 | NUR ---
SHIFT SUMMARY AO X 4, CALL APPROPRIATELY AND MAKE NEEDS KNOWN. EVER'Baljeet ECHEVARRIA TODAY AT 1650. REPOSITIONED Q2H. CALL LIGHT WITHIN REACH AND BED IN LOWEST POSITION.
[2024-08-14 19:57] VITALS: BP 121/59
[2024-08-14] MEDS ORDERED: Tamsulosin HCl 0.4 MG Cap PO SCH (21:00)
[2024-08-15 00:33] VITALS: BP 141/50
[2024-08-15 04:10] VITALS: BP 121/46
[2024-08-15] MEDS ORDERED: Levothyroxine Sodium 0.075 MG Tab PO SCH (06:00)
--- NOTE | 2024-08-15 06:51 | NUR ---
COAT CHECKER SUMMARY ASSUMED CARE OF PT AROUND 0245 THIS MORNING. PT AAOX4 AND PLEASANT. HAS SLEPT WELL TONIGHT. REPOSITIONED Q2H. POWERGLIDE MAC WELL FOR MORNING LABS. PT DENIES OTHER NEEDS AT THIS TIME, WILL CONTINUE TO MONITOR.
[2024-08-15 07:08] LABS: BASOPHILS ABSOLUTE AUTO 0.02 K/mm3 (0.00-0.23); BASOPHILS PERCENT AUTO 0 % (0-2); EOSINOPHILS ABSOLUTE AUTO 0.12 K/mm3 (0.00-0.68); EOSINOPHILS PERCENT AUTO 1 % (0-6); Hematocrit 30.1 % (37.0-53.0); Hemoglobin 9.9 g/dL (13.5-17.5); IMMATURE GRAN ABSOLUTE AUTO 0.33 K/mm3 (0.00-0.10); IMMATURE GRAN PERCENT AUTO 2 % (0-1); LYMPHOCYTES ABSOLUTE AUTO 0.83 K/mm3 (0.84-5.20); LYMPHOCYTES PERCENT AUTO 5 % (21-46); MONOCYTES ABSOLUTE AUTO 0.78 K/mm3 (0.16-1.47); MONOCYTES PERCENT AUTO 5 % (4-13); Mean Corpuscular HGB 30.7 pg (26.0-34.0); Mean Corpuscular HGB Conc 32.9 g/dL (31.5-36.5); Mean Corpuscular Volume 94 fL (80-100); Mean Platelet Volume 10.5 fL (9.1-12.4); NEUTROPHILS ABSOLUTE AUTO 15.27 K/mm3 (1.96-9.15); NEUTROPHILS PERCENT AUTO 88 % (41-73); Platelet Count 245 K/mm3 (150-400); RDW Coefficient Variation 14.3 % (11.7-14.2); RDW Standard Deviation 49.1 fL (35.1-46.3); Red Blood Cell Count 3.22 M/mm3 (4.30-5.90); White Blood Cell Count 17.35 K/mm3 (4.00-11.30)
[2024-08-15 07:19] VITALS: BP 137/51
[2024-08-15 07:27] LABS: Albumin, Blood 1.4 g/dL (3.4-5.0); Albumin/Globulin Ratio 0.4 (0.8-1.8); Bilirubin, Total 0.7 mg/dL (0.1-1.0); Bun/Creatinine Ratio 32.9 (12.0-20.0); Calcium, Blood 7.4 mg/dL (8.5-10.1); Creatinine, Blood 0.67 mg/dL (0.60-1.20); Globulin, Blood 3.7 g/dL (2.2-4.0); Potassium, Blood 3.3 mmol/L (3.5-5.5); Total Protein, Blood 5.1 g/dL (6.4-8.2)
[2024-08-15] MEDS ORDERED: Losartan Potassium 25 MG Tab PO SCH ×3 (09:00)
[2024-08-15] MEDS ORDERED: Spironolactone 12.5 MG TAB PO SCH (09:00)
[2024-08-15] MEDS ORDERED: Loperamide HCl 2 MG Cap PO PRN (09:20)
[2024-08-15] MEDS ORDERED: Potassium Chloride 20 MEQ TabCR PO ONE (09:25)
[2024-08-15 12:07] VITALS: BP 119/45
--- NOTE | 2024-08-15 15:49 | NUR ---
1549-ADVANCED PT'S DIET PT TOLERATING CRACKERS, CHEESE, AND APPLE SAUCE. PT'S DIET ADVACED TO M&M.
[2024-08-15 16:44] VITALS: BP 133/46
--- NOTE | 2024-08-15 18:38 | NUR ---
SUMMARY- AAOX4. BEDREST. PT ON 4L CONTINUOUS THIS SHIFT-UNABLE TO WEAN DOWN O2. NO COMPLAINTS OF PAIN. PT GIVEN INCENTIVE SPIROMETER. NO ACUTE EVENTS THIS SHIFT. PT TOLERATING M&M DIET.
[2024-08-15 20:17] VITALS: BP 120/44
[2024-08-16] VITALS (7 sets, daily range): BP systolic 120–138; BP diastolic 50–53
--- NOTE | 2024-08-16 03:45 | NUR ---
NURSE PRECEPTOR FOR STUDENT NOTE. I HAVE WORKED ALONG SIDE OF AND READ HER DOCUMENTATION AND I AGREE WITH SAID INFO.
--- NOTE | 2024-08-16 03:52 | NUR ---
NOTE O2 SATS ALARM ON, NOTE PT MOUTH BREATHER AND O2 PER NC. RT NOTIFIED AND O2 MASK SENT TO FLOOR. MASK WITH O2 PLACED. SATS BACK INTO THE 90'S. WILL CONT TO MONITOR.
--- NOTE | 2024-08-16 03:59 | NUR ---
Pastry Cook Apprentice Shift Summary Patient admitted for Small bowel obstruction. Patients diet increased to minced and moist during the day. VSS. Telemetry shows sinus 60's with a 1st degree blockage and prolonged QTC's of 0.51. Patient also had accelerated idioventricular rhythm at approximately 2315 this evening. Patient is on high flow oxygen via nasal cannula during the day. Was changed to mask for HS. Pateint is alert and oriented x4. Sleeping intermittenly. Occasionally asking for bedpan with no results. Remains on enteric contact precautions; see MD notations. Bed rails up x3. Bed in lowest position for safety. Call light within reach. Will continue to monitor.
[2024-08-16 05:54] LABS: BASOPHILS ABSOLUTE AUTO 0.02 K/mm3 (0.00-0.23); BASOPHILS PERCENT AUTO 0 % (0-2); EOSINOPHILS ABSOLUTE AUTO 0.09 K/mm3 (0.00-0.68); EOSINOPHILS PERCENT AUTO 1 % (0-6); Hematocrit 31.9 % (37.0-53.0); Hemoglobin 10.5 g/dL (13.5-17.5); IMMATURE GRAN ABSOLUTE AUTO 0.18 K/mm3 (0.00-0.10); IMMATURE GRAN PERCENT AUTO 1 % (0-1); LYMPHOCYTES PERCENT AUTO 6 % (21-46); MONOCYTES ABSOLUTE AUTO 0.78 K/mm3 (0.16-1.47); MONOCYTES PERCENT AUTO 5 % (4-13); Mean Corpuscular HGB 30.6 pg (26.0-34.0); Mean Corpuscular HGB Conc 32.9 g/dL (31.5-36.5); Mean Corpuscular Volume 93 fL (80-100); Mean Platelet Volume 9.9 fL (9.1-12.4); NEUTROPHILS PERCENT AUTO 87 % (41-73); Platelet Count 307 K/mm3 (150-400); RDW Coefficient Variation 14.4 % (11.7-14.2); RDW Standard Deviation 48.7 fL (35.1-46.3); Red Blood Cell Count 3.43 M/mm3 (4.30-5.90); White Blood Cell Count 14.87 K/mm3 (4.00-11.30)
[2024-08-16 06:22] LABS: Albumin, Blood 1.6 g/dL (3.4-5.0); Albumin/Globulin Ratio 0.4 (0.8-1.8); Bilirubin, Total 0.7 mg/dL (0.1-1.0); Bun/Creatinine Ratio 26.7 (12.0-20.0); Calcium, Blood 7.8 mg/dL (8.5-10.1); Creatinine, Blood 0.67 mg/dL (0.60-1.20); Globulin, Blood 4.3 g/dL (2.2-4.0); Potassium, Blood 3.8 mmol/L (3.5-5.5); Total Protein, Blood 5.9 g/dL (6.4-8.2)
[2024-08-16] MEDS ORDERED: Miconazole Nitrate 2% 85 GM PWD TOP SCH (11:10)
[2024-08-16] MEDS ORDERED: Ondansetron 4 MG SoluTab SL PRN (11:15)
[2024-08-16] MEDS ORDERED: Albuterol 2.5 MG/3 ML VIAL INH PRN (13:25)
--- NOTE | 2024-08-16 14:14 | NUR ---
PT INCREASED PAIN IN ABDOMEN, ABDOMEN FIRM AND DISTENDED. PT DIAPHORETIC, ATTEMPTED TO HAVE BOWEL MOVEMENT 3-4 TIMES THIS SHIFT WITHOUT SUCCESS. NO URINE OUTPUT THIS SHIFT. BLADDER SCAN [address] AMIN NOTIFIED AND CAME TO SEE PT AT BEDSIDE. PER MD, SHE WILL SEE PT APPROX ONE HOUR TO SEE IF IMPROVED. VSS, CBG WNL.
[2024-08-16 14:20] LABS: BASOPHILS ABSOLUTE AUTO 0.02 K/mm3 (0.00-0.23); BASOPHILS PERCENT AUTO 0 % (0-2); EOSINOPHILS ABSOLUTE AUTO 0.07 K/mm3 (0.00-0.68); EOSINOPHILS PERCENT AUTO 0 % (0-6); Hematocrit 29.6 % (37.0-53.0); Hemoglobin 9.7 g/dL (13.5-17.5); IMMATURE GRAN ABSOLUTE AUTO 0.11 K/mm3 (0.00-0.10); IMMATURE GRAN PERCENT AUTO 1 % (0-1); LYMPHOCYTES ABSOLUTE AUTO 0.88 K/mm3 (0.84-5.20); LYMPHOCYTES PERCENT AUTO 6 % (21-46); MONOCYTES ABSOLUTE AUTO 0.94 K/mm3 (0.16-1.47); MONOCYTES PERCENT AUTO 6 % (4-13); Mean Corpuscular HGB 30.6 pg (26.0-34.0); Mean Corpuscular HGB Conc 32.8 g/dL (31.5-36.5); Mean Corpuscular Volume 93 fL (80-100); Mean Platelet Volume 10.1 fL (9.1-12.4); NEUTROPHILS ABSOLUTE AUTO 14.06 K/mm3 (1.96-9.15); NEUTROPHILS PERCENT AUTO 88 % (41-73); Platelet Count 313 K/mm3 (150-400); RDW Coefficient Variation 14.4 % (11.7-14.2); RDW Standard Deviation 49.6 fL (35.1-46.3); Red Blood Cell Count 3.17 M/mm3 (4.30-5.90); White Blood Cell Count 16.08 K/mm3 (4.00-11.30)
[2024-08-16 14:45] LABS: Albumin, Blood 1.4 g/dL (3.4-5.0); Albumin/Globulin Ratio 0.4 (0.8-1.8); Bilirubin, Total 0.7 mg/dL (0.1-1.0); Bun/Creatinine Ratio 28.5 (12.0-20.0); Calcium, Blood 7.9 mg/dL (8.5-10.1); Creatinine, Blood 0.63 mg/dL (0.60-1.20); Potassium, Blood 3.6 mmol/L (3.5-5.5); Total Protein, Blood 5.4 g/dL (6.4-8.2)
--- NOTE | 2024-08-16 17:05 | NUR ---
PT IS DROWSY THIS SHIFT, EASILY AROUSED. PT DECLINED LUNCH DUE TO NAUSEA. GENERALIZED FATIGUE, NO BM THIS SHIFT. PT REPORTS CONSTIPATION. WEEPING NOTED FROM REDDEND AREA ON LEFT FORARM. MD AWARE. XRAY OF ABD PENDING.
[2024-08-16] MEDS ORDERED: Insulin Glargine-Yfgn 100 Unit/mL 3 ML SYR SC ONE (18:55)
--- NOTE | 2024-08-16 18:56 | NUR ---
NO URINE OUTPUT THIS SHIFT. BLADDER SCAN AT 500 CC. PT RET[address] PER [address] BRAR, STRAIGHT CATH NOW, CONTINUE TO MONITOR BLADDER SCANS AND STRAIGHT CATH INDICATED. PT ATE ONLY 10% DINNER. POOR APPETITE. NO LUNCH. CBG 119. PER DR. BRAR, DO NOT GIVE SCHEDULED SHORT ACTING AND LONG ACTING. ORDER AND GIVE GLARGINE 5 UNITS ONCE IF PT EATS <50% OF MEAL. CLOSELY MONITOR FOR S/S OF HYPOGLYCEMIA. PT IS AT LARGE RISK FOR BOWEL OBSTRUCTION WITH CONCERNING ABD MD QUYEN ORDERED ABD CT. ENSURE CLOSE OBSERVATION OF S/S OF BOWEL OBSTRUCTION. IF PT EXPERIENCES OVERNIGHT. CALL SURGERY AND INFORM CT IS PENDING. PT EDUCATED TO TELL NURSE AND STAFF OF ANY INCREASED N/V, ABD PAIN OR ANY OTHER NEW SYMPTOMS. PT VERBALIZED UNDERSTANDING.
[2024-08-17 03:36] VITALS: BP 120/50
[2024-08-17 05:31] LABS: Hematocrit 29.8 % (37.0-53.0); Hemoglobin 9.4 g/dL (13.5-17.5); Mean Corpuscular HGB 30.2 pg (26.0-34.0); Mean Corpuscular HGB Conc 31.5 g/dL (31.5-36.5); Mean Corpuscular Volume 96 fL (80-100); Mean Platelet Volume 10.1 fL (9.1-12.4); Platelet Count 360 K/mm3 (150-400); RDW Coefficient Variation 14.4 % (11.7-14.2); Red Blood Cell Count 3.11 M/mm3 (4.30-5.90); White Blood Cell Count 16.18 K/mm3 (4.00-11.30)
--- NOTE | 2024-08-17 05:50 | NUR ---
SHIFT SUMMARY: Pt is admitted for small bowel obstruction and is a DNR. is alert and able to make needs known. ADLs have been mostly one. But did not get out of bed. Stated he has some lower level pain to ABD but declined to have anything for it when asked. Telly was noted sinus in the 50s with no events. Had CT scan. Dr Garcia from of site RAD. called. He informed with LN about a left ABD wall abscess. Reported findings to MD. he wanted a surgical consult. LN called Dr Gastelum's answering service to notify. Bladder scan x2. PVR was 150 and 0. O2 at 7lpm via nc or mask.
[2024-08-17 05:58] LABS: BAND PERCENT MAN 1 % (0-8); BASOPHILS PERCENT MAN 0 % (0-2); EOSINOPHILS ABSOLUTE MAN 0.16 K/mm3 (0.00-0.68); EOSINOPHILS PERCENT MAN 1 % (0-6); LYMPHOCYTES ABSOLUTE MAN 0.48 K/mm3 (0.84-5.20); LYMPHOCYTES PERCENT MAN 3 % (21-46); MONOCYTES PERCENT MAN 5 % (4-13); NEUTROPHILS ABSOLUTE MAN 14.72 K/mm3 (1.96-9.15); SEG NEUTROPHILS PERCENT MAN 90 % (41-73); TOTAL CELLS COUNTED 100
[2024-08-17 06:01] LABS: Albumin, Blood 1.4 g/dL (3.4-5.0); Albumin/Globulin Ratio 0.4 (0.8-1.8); Bilirubin, Total 0.5 mg/dL (0.1-1.0); Bun/Creatinine Ratio 35.1 (12.0-20.0); Calcium, Blood 7.9 mg/dL (8.5-10.1); Creatinine, Blood 0.66 mg/dL (0.60-1.20); Globulin, Blood 3.9 g/dL (2.2-4.0); Potassium, Blood 4.1 mmol/L (3.5-5.5); Total Protein, Blood 5.3 g/dL (6.4-8.2)
[2024-08-17 07:31] VITALS: BP 120/51
[2024-08-17] MEDS ORDERED: Meropenem 1,000 MG in NS 100 ML IV SCH (08:00)
[2024-08-17] MEDS ORDERED: Vancomycin HCL 1,500 MG in NS 250 ML IV SCH (09:00)
[2024-08-17] MEDS ORDERED: Vancomycin HCL 1,000 MG in NS 250 ML IV SCH ×2 (09:00→21:00)
--- NOTE | 2024-08-17 09:35 | NUR ---
per dr. santiago, ok to hold blood thinners until surgery consults. ok to hold insulin due to pt not eating.
[2024-08-17] MEDS ORDERED: Furosemide 10 MG / ML 2ML Vial IV ONE (10:25)
[2024-08-17 11:26] VITALS: BP 121/47
[2024-08-17 15:37] VITALS: BP 123/48
--- NOTE | 2024-08-17 16:24 | NUR ---
MET WITH PT'S SON TO DISCUSS PT'S OVERALL PROGNOSIS. HE REQUESTS MEETING WITH PHYSICIAN TOMORROW MORNING. MEETING TIME SET UP FOR 10AM TOMORROW MORNING WITH DR. VELASQUEZ.
[2024-08-17] MEDS ORDERED: Insulin Human Lispro 100 Units/ML 3ML Syringe SC SCH (16:30)
--- NOTE | 2024-08-17 16:37 | NUR ---
PLAN FOR PT, FAMILY, PALLIATIVE CARE AND MD TO MEET TOMORROW MORNING. PT CALLS APPROPRIATELY. NO BM, URINATING IN URINAL. Q2HR TURNS AND PRN. POOR PO INTAKE. IV ANTIBIOTICS CONTINUED
[2024-08-17] MEDS ORDERED: Insulin Glargine-Yfgn 100 Unit/mL 3 ML SYR SC SCH (18:00)
[2024-08-17 20:20] VITALS: BP 120/51
[2024-08-18 00:12] VITALS: BP 131/49
[2024-08-18 04:54] VITALS: BP 137/48
--- NOTE | 2024-08-18 06:41 | NUR ---
SHIFT SUMMARY: Pt is admitted for small bowel obstruction and is a DNR. is alert and able to make needs known. ADLs have been mostly one. But did not get out of bed. Stated he had minimal pain and declined to take a PRN for it. O2 at 7lpm via nc or mask. Telly noted that he was sinus in the 50s with a 1 deg.
[2024-08-18 06:42] LABS: BASOPHILS ABSOLUTE AUTO 0.01 K/mm3 (0.00-0.23); BASOPHILS PERCENT AUTO 0 % (0-2); Hematocrit 29.4 % (37.0-53.0); Hemoglobin 9.5 g/dL (13.5-17.5); LYMPHOCYTES ABSOLUTE AUTO 0.87 K/mm3 (0.84-5.20); LYMPHOCYTES PERCENT AUTO 6 % (21-46); MONOCYTES ABSOLUTE AUTO 0.67 K/mm3 (0.16-1.47); MONOCYTES PERCENT AUTO 5 % (4-13); Mean Corpuscular HGB 30.8 pg (26.0-34.0); Mean Corpuscular HGB Conc 32.3 g/dL (31.5-36.5); Mean Corpuscular Volume 96 fL (80-100); Platelet Count 428 K/mm3 (150-400); RDW Coefficient Variation 14.3 % (11.7-14.2); RDW Standard Deviation 48.8 fL (35.1-46.3); Red Blood Cell Count 3.08 M/mm3 (4.30-5.90); White Blood Cell Count 14.22 K/mm3 (4.00-11.30)
[2024-08-18 07:22] LABS: Albumin, Blood 1.4 g/dL (3.4-5.0); Albumin/Globulin Ratio 0.3 (0.8-1.8); Bilirubin, Total 0.5 mg/dL (0.1-1.0); Calcium, Blood 7.4 mg/dL (8.5-10.1); Creatinine, Blood 0.66 mg/dL (0.60-1.20); EOSINOPHILS ABSOLUTE AUTO 0.07 K/mm3 (0.00-0.68); EOSINOPHILS PERCENT AUTO 1 % (0-6); Globulin, Blood 4.4 g/dL (2.2-4.0); IMMATURE GRAN PERCENT AUTO 1 % (0-1); NEUTROPHILS PERCENT AUTO 88 % (41-73); Potassium, Blood 3.7 mmol/L (3.5-5.5); Total Protein, Blood 5.8 g/dL (6.4-8.2)
[2024-08-18 07:24] LABS: BAND PERCENT MAN 1 % (0-8); BASOPHILS PERCENT MAN 0 % (0-2); EOSINOPHILS PERCENT MAN 0 % (0-6); LYMPHOCYTES ABSOLUTE MAN 1.13 K/mm3 (0.84-5.20); LYMPHOCYTES PERCENT MAN 8 % (21-46); MONOCYTES ABSOLUTE MAN 0.56 K/mm3 (0.16-1.47); MONOCYTES PERCENT MAN 4 % (4-13); NEUTROPHILS ABSOLUTE MAN 12.51 K/mm3 (1.96-9.15); SEG NEUTROPHILS PERCENT MAN 87 % (41-73); TOTAL CELLS COUNTED 100
[2024-08-18 07:52] VITALS: BP 130/51
[2024-08-18] MEDS ORDERED: Furosemide 10 MG / ML 2ML Vial IV ONE (08:40)
[2024-08-18 10:52] VITALS: BP 122/52
--- NOTE | 2024-08-18 13:38 | NUR ---
PALLIATIVE CARE VISIT: 1005 MET WITH PT IN ROOM. SON SERAFIN AND ITA PRESENT. DR. VELASQUEZ ALSO PRESENT. DISCUSSED HOSPICE SERVICES AND COMFORT CARE MEASURES. PT/FAMILY AGREEABLE TO HOSPICE SERVICES. HOSPICE CHOICES PRESENTED AND FAMILY CHOSE [facility]. PT WISHES TO GO BACK TO [facility]. NOTIFIED CARE MANAGEMENT OF PT CHOICE.
[2024-08-18 15:02] VITALS: BP 129/54
--- NOTE | 2024-08-18 16:01 | NUR ---
DISCHARGE PT AOX3/4, COOPERATIVE, ABLE TO MAKE NEEDS KNOWN. PT HAS BEEN IN BED FOR DURATION OF SHIFT. ON 6L O2 VIA OXIMIZER MASK DUE TO MOUTH BREATHING. POWERGLIDE DC'D BY THIS RN WITHOUT EVENT. PT GOING [facility] FOR [facility]PICE. CALLED TO GIVE REPORT, HAD TO LEAVE PT NAME AND CALLBACK NUMBER.
[2024-08-18] MEDS ORDERED: JARDIANCE10 MG PO (16:19)
--- NOTE | 2024-08-18 16:20 | NUR ---
GAVE REPORT TO "HIRA" OF [facility].
[2024-08-18] MEDS ORDERED: LOSA25 PO (16:21)
[2024-08-18] MEDS ORDERED: ALBU90OI INH (16:23)
[2024-08-18] MEDS ORDERED: LOPE2C PO (16:25)
[2024-08-18] MEDS ORDERED: SULTRIDS PO (16:25)
[2024-08-18] MEDS ORDERED: ONDA4ODT MM (16:26)
[2024-08-18] MEDS ORDERED: FOLI1 PO (16:26)
[2024-08-18] MEDS ORDERED: MICONAZOLE NITR85 GM TOP (16:26)
[2024-08-18] MEDS ORDERED: SPIR25 PO (16:28)
[2024-08-18] MEDS ORDERED: Insulin Glargine-Yfgn 100 Unit/mL 3 ML SYR SC SCH (18:00)
== END 2024-08-18 15:59 | DRG 388 ==
LOC: ER 18:32 → ICUE 22:00 → ERHOLD 22:00 → SURS 22:00 → MEDS 22:00 → SURS 08-04 01:07 → ICUE 08-05 00:30 → PCU 08-08 12:49 → MEDS 08-11 12:58
PROVIDERS: Emergency Medicine; Family Medicine; Internal Medicine; Internal Medicine Cardiovascular Disease; Surgery; ADMIT Internal Medicine
PROC: 0D9670Z Drainage of Stomach with Drainage Device, Via Natural or Artificial Opening (ICD-10-PCS; principal; 2024-08-03)
PROC: 3E03329 Introduction of Other Anti-infective into Peripheral Vein, Percutaneous Approach (ICD-10-PCS; 2024-08-06)
PROC: 5A0935A Assistance with Respiratory Ventilation, Less than 24 Consecutive Hours, High Flow/Velocity Cannula (ICD-10-PCS; 2024-08-07)
PROC: 3E0336Z Introduction of Nutritional Substance into Peripheral Vein, Percutaneous Approach (ICD-10-PCS; 2024-08-09)
DX: K56.699 Other intestinal obstruction unspecified as to partial versus complete obstruction (principal); A41.9 Sepsis, unspecified organism; N30.00 Acute cystitis without hematuria; T83.511A Infection and inflammatory reaction due to indwelling urethral catheter, initial encounter; J69.0 Pneumonitis due to inhalation of food and vomit; Z51.5 Encounter for palliative care; Z66 Do not resuscitate; J96.01 Acute respiratory failure with hypoxia; I21.3 ST elevation (STEMI) myocardial infarction of unspecified site; E87.21 Acute metabolic acidosis; N17.9 Acute kidney failure, unspecified; E87.0 Hyperosmolality and hypernatremia; E87.1 Hypo-osmolality and hyponatremia; K55.1 Chronic vascular disorders of intestine; A04.0 Enteropathogenic Escherichia coli infection; M96.841 Postprocedural hematoma of a musculoskeletal structure following other procedure; M96.843 Postprocedural seroma of a musculoskeletal structure following other procedure; I50.32 Chronic diastolic (congestive) heart failure; E87.3 Alkalosis; I77.1 Stricture of artery; E87.6 Hypokalemia; E03.9 Hypothyroidism, unspecified; J98.4 Other disorders of lung; C61 Malignant neoplasm of prostate; I11.0 Hypertensive heart disease with heart failure; I25.10 Atherosclerotic heart disease of native coronary artery without angina pectoris; G47.33 Obstructive sleep apnea (adult) (pediatric); Y73.2 Prosthetic and other implants, materials and accessory gastroenterology and urology devices associated with adverse incidents; T38.0X5A Adverse effect of glucocorticoids and synthetic analogues, initial encounter; N43.3 Hydrocele, unspecified; N45.1 Epididymitis; N41.9 Inflammatory disease of prostate, unspecified; N40.1 Benign prostatic hyperplasia with lower urinary tract symptoms; R33.8 Other retention of urine; K80.20 Calculus of gallbladder without cholecystitis without obstruction; K86.89 Other specified diseases of pancreas; E11.65 Type 2 diabetes mellitus with hyperglycemia; I48.0 Paroxysmal atrial fibrillation; E78.00 Pure hypercholesterolemia, unspecified; E11.51 Type 2 diabetes mellitus with diabetic peripheral angiopathy without gangrene; J45.909 Unspecified asthma, uncomplicated; R54 Age-related physical debility; Z79.890 Hormone replacement therapy; Z85.038 Personal history of other malignant neoplasm of large intestine; Z90.49 Acquired absence of other specified parts of digestive tract; Z95.1 Presence of aortocoronary bypass graft; Z95.820 Peripheral vascular angioplasty status with implants and grafts; Z89.511 Acquired absence of right leg below knee; Z98.1 Arthrodesis status; Z95.5 Presence of coronary angioplasty implant and graft; Z89.612 Acquired absence of left leg above knee
CPT/HCPCS: 36415; 51702; 71045; 74018; 74019; 74177; 74250; 80048; 80053; 80069; 81001; 82010; 82803; 82947; 83036; 83605; 83690; 83735; 83880; 84100; 84145; 84153; 84478; 84484; 85014; 85018; 85025; 85027; 85060; 85520; 85610; 85730; 87040; 87086; 87507; 93308; 93321; 94664; 94667; 94760; 94762; 96374; 96375; 97110; 97162; 97530; 99285-25; A9270; C1751; J0295; J0696; J0780; J1644; J1650; J1815; J1938; J2185; J2270; J2405; J2470; J2919; J3010; J3411; J3470; J3480; J7030; J7050; J7120; Q9967